=== PATIENT | female | born 1950 | race Caucasian/White ===

== ENCOUNTER → 2017-04-02 | Outpatient (CLI) | payer BC ==
[~2017-04-02] MED LIST: ADVIN10/60 INH; ALBU1AER9 INH; ALL180 PO; ALPR-411 PO; ASCA500 PO; CALC-354 PO; CHOL100010 PO; FIBETAB2 PO; FLUT0.0529; FLX5 PO; HYDR-3983 PO; HYDR0.75 PO; HYDR25TA4 PO; LIRA18IN SQ; LISI-725 PO; METF500T5 PO; MULT-845 PO; MYCO15 TOP; NTRS PO; NVLGI7030 SC; OMEG10002 PO; PROB1TAB16 PO; TRAZ50TA35 PO
[2017-04-02 13:28] LABS: HEMATOCRIT 39.5 % (37-47); MEAN CELL VOLUME 92.5 fL (80-100); MEAN CORPUSCULAR HEMOGLOBIN 30.4 pg (25-34); MEAN CORPUSCULAR HGB CONC 32.9 g/dl (32-36); MEAN PLATELET VOLUME 9.3 fL (7.4-10.4); PLATELET COUNT 291 K/uL (130-400); RED BLOOD COUNT 4.27 M/uL (4.2-5.4); WHITE BLOOD COUNT 6.72 K/uL (4.8-10.8)
[2017-04-02 14:02] LABS: ALT/SGPT 19 U/L (12-78); AST/SGOT 14 U/L (15-37); BLOOD UREA NITROGEN 13 mg/dl (7-18); BUN/CREATININE RATIO 17.6 (10-20); CALCIUM 9.5 mg/dl (8.5-10.1); CARBON DIOXIDE 30 mmol/L (21-32); CHLORIDE 104 mmol/L (98-107); CREATININE 0.73 mg/dl (0.60-1.20); GLUCOSE 116 mg/dl (70-99); POTASSIUM 3.9 mmol/L (3.5-5.1); SODIUM 137 mmol/L (136-145); URIC ACID 6.5 mg/dl (2.6-7.2)
[2017-04-02 14:04] LABS: ALB/GLOB RATIO 0.9 (0.9-2); ALKALINE PHOSPHATASE 97 U/L (45-117); CHOLESTEROL 184 mg/dl (0-200); CHOLESTEROL/HDL RATIO 2.9; HDL CHOLESTEROL 64 mg/dl; LDL CHOLESTEROL CALCULATED 104 mg/dl; TRIGLYCERIDES 82 mg/dl (0-150); VERY LOW DENSITY LIPOPROT CALC 16 mg/dl
[2017-04-02 14:30] LABS: ESTIMATED AVERAGE GLUCOSE 131 mg/dl; HA1C FLAG Normal (Normal)
== END | disposition home or self-care (01) ==
LOC: C.LABPVFM 08:34
PROVIDERS: ATTEND Internal Medicine
DX: Z00.00 Encounter for general adult medical examination without abnormal findings (principal); E11.9 Type 2 diabetes mellitus without complications; M10.9 Gout, unspecified

== ENCOUNTER 2024-11-30 10:14 | Inpatient (IN) ==
--- NOTE | 2024-11-30 10:38 | Emergency Department Note ---
Impression & Plan Atrial fibrillation, new onset Admission ED Provider Note HPI: History obtained from patient. The patient is a 73-year-old female who presents the emergency department with a chief complaint of new onset atrial fibrillation. Patient states she was scheduled for an EGD and a colonoscopy today, during her preprocedural screening she was noted to be in atrial fibrillation, this is a new issue for the patient therefore she was sent to the ER to be evaluated. Patient denies any chest pain or shortness of breath, on arrival here to the ED the patient is hypertensive and tachycardic in the 120s. Patient is saturating well on room air and otherwise appears to be in no acute distress on arrival. ROS: - Per HPI Differential Diagnosis: New onset atrial fibrillation, other arrhythmia to include SVT, ventricular tachycardia, ACS, PE, dehydration/acute kidney injury, critical electrolyte abnormalities, amongst other potential pathologies. *Outpatient medications and allergy history reviewed. PE: General: Alert HEENT: Normocephalic, trachea midline Eyes: Extraocular eye movement is intact, no scleral erythema Pulmonary: Clear to auscultation bilaterally, no wheezing Cardio: Tachycardic rate with irregular rhythm GI: Abdomen is soft to palpation : No suprapubic tenderness MSK: No evidence of trauma or malformation of the extremities, no edema Skin: No evidence of rash Neuro: Alert, no focal deficits Psychiatric: Cooperative INDEPENDENT INTERPRETATIONS: monitoring and evaluation advisor: (As interpreted by myself): - An order was placed for continuous cardiac monitoring - Patient was noted to be in atrial fibrillation with a rate of 130 EKG: (As interpreted by myself): Rate: 121 Rhythm: Atrial fibrillation with RVR Intervals: Within normal limits ST changes: No ST elevation Time: 1026 Chest x-ray: (As interpreted by myself): Mild CHF pattern Interventions provided in ED: - IV diltiazem, IV metoprolol Medical Decision Making: Patient appears to be in no acute distress on arrival, she was noted to be hypertensive and tachycardic with new onset atrial fibrillation with RVR on the monitor. Patient was given IV diltiazem. This did result in improvement in the patient's tachycardia. Lab work shows no leukocytosis, hemoglobin stable 11.5, platelet count is normal, CMP shows a hypokalemia 3.1, magnesium is low at 1.6, troponin is negative x 1. TSH is within normal limits. Patient was ordered IV magnesium as well as oral potassium chloride supplementation. Patient denies any chest pain or shortness of breath and troponin is negative, low suspicion for ACS or PE. Patient's heart rate did uptrend after the initial dose of IV diltiazem, she was therefore given a dose of IV metoprolol. This did result in improvement down to about 100 and the patient otherwise remained stable. I discussed the patient's symptoms and new onset A-fib with the on-call hospitalist, Dr. Glaser, and he did accept the admission. Patient was placed for admission in stable condition for further management. Consultants/Discussions held with other healthcare providers: - Hospitalist, Dr. Glaser Disposition discussion held by myself with: - Patient * CRITICAL CARE TIME: (38) minutes - Stabilization of tachyarrhythmia/atrial fibrillation with RVR requiring IV rate control medications for stabilization, interpretation of diagnostic studies including EKG, time spent at the bedside, discussion with other physicians and arrangement of admission Diagnosis: 1. New onset atrial fibrillation with RVR, acute 2. Hypokalemia, acute 3. Hypomagnesemia, acute Disposition: Admission Homer Murillo DO Emergency Medicine Past Med/Surg History Problem List (Updated 11/30/24 @ 14:24 by Homer Murillo DO) Atrial fibrillation, new onset (Acute) Hypoxia Hypomagnesemia Hypokalemia Atrial fibrillation with RVR Dysphagia Encounter for pre-operative examination Abnormal CT of the abdomen Back pain of thoracolumbar region Esophageal thickening T12 vertebral fracture (Acute ~07/18/24) Minimally displaced fractures of an anterior inferior T12 vertebral body osteophyte and anterior lateral right L1 superior vertebral body endplate. Compression fx, lumbar spine (Acute) Minimally displaced fractures of an anterior inferior T12 vertebral body osteophyte and anterior lateral right L1 superior vertebral body endplate. Nondisplaced fracture of fifth metatarsal bone (Acute ~11/20/22) Date of injury 11/20/22. Nondisplaced 4th and 5th left metatarsal fracture that are healing appropriately. 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 Lumbosacral radiculopathy Idiopathic polyneuropathy History of colon polyps Family history of colon cancer Encounter for pre-operative examination Type 2 diabetes mellitus (Acute) IDDM Obesity (Acute) Ganglion cyst (Acute) Extrinsic asthma (Acute) Essential hypertension (Acute) Dyslipidemia (Acute) Diabetic peripheral neuropathy (Acute) Depression with anxiety (Acute) Anxiety (Acute) Medical History Family hx of colon cancer Arthritis Hx of colonic polyp Snores no apnea testing T12 vertebral fracture (07/2024) Minimally displaced fractures of an anterior inferior T12 vertebral body osteophyte and anterior lateral right L1 superior vertebral body endplate. > pt is still mobile, just careful with lifting, minimal pain Type 2 diabetes mellitus Chronic sinusitis Endometriosis Depression Anxiety Migraine hx Hypertension Hyperlipidemia Asthma allergy induced > uses res inh few times per week Surgical History H/O excision of ganglion cyst S/P ACL repair H/O bladder repair surgery History of appendectomy History of colonoscopy History of excision of pilonidal cyst History of cataract surgery History of total abdominal hysterectomy Hx of detached retina repair Hx of cholecystectomy H/O lumpectomy Family History Grandfather Heart disease Myocardial infarction Daughter Bipolar disorder Asthma Mother Colon cancer Skin cancer (melanoma) Breast cancer Grandmother Diabetes Heart disease Hypertension Father COPD (chronic obstructive pulmonary disease) Son No problems noted. 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 [employer] How many Children do You have: 2 How many Children do You have Comment: Daughter, son Feels Safe at Home: Yes Childhood Exposure to Second-Hand Smoke: Yes Diet: regular caffeine: Yes during the past year weight has: increased > 10 lbs Dental Care, Regularly: Yes Physical Activity Frequency: 3-4 Times per Week Seatbelt Use: always Sunscreen Use: Yes Do you think of yourself as: straight/heterosexual Gender Identity: Female Assistive Devices: Denture - Upper and Glasses Allergies Allergies Allergy/AdvReac Type Severity Reaction Status Date / Time Sulfa (Sulfonamide Allergy Severe Rash Verified 11/30/24 09:11 Antibiotics) sulfite Allergy Severe varies - Verified 11/30/24 09:11 migraines,diarrhea,throat swelling amoxicillin Allergy Unknown RASH NAUSEA Verified 11/30/24 09:11 doxycycline AdvReac Intermediate Vomiting Verified 11/30/24 09:11 Home Meds Home Medications Medication Instructions Recorded Confirmed ascorbic acid (vitamin C) 1,000 mg 500 mg PO QAM 09/21/18 11/30/24 tablet (Vitamin C) cholecalciferol (vitamin D3) 25 2,000 unit PO QAM 09/21/18 11/30/24 mcg (1,000 unit) capsule (Vitamin D3) tknbfkrt-dzc-nnyhz acid 0.4 1 tab PO QAM 09/21/18 11/30/24 mg-lycopene 300 mcg-lutein 250 mcg tablet (Centrum Silver) omega 8-qgg-qlv-fish oil 1,000 mg 1 cap PO BID 06/11/19 11/30/24 (120 mg-180 mg) capsule (Fish Oil) calcium 333 mg 1 tab PO DAILY 11/25/19 11/30/24 (carbonate)-magnesium 133 mg (oxide)-zinc 5 mg tablet fexofenadine-pseudoephedrine ER 1 tab PO HS 11/25/19 11/30/24 180 mg-240 mg tablet,ext.release 24 hr (Lisa-D 24 Hour) zjlsxfad-uvwc-ppzqsmpj-folic acid 1 cap PO DAILY 11/25/19 11/30/24 66.7 mcg-biotin 1,666.7 mcg capsule (Hair, Skin and Nails-Argan Oil) ibuprofen 200 mg capsule 200 mg PO Q6H PRN Fever Or Pain 09/18/21 11/30/24 vitamins A,C,W-okqc-tnimos 4,296 1 cap PO HS 09/18/21 11/30/24 mcg-226 mg-90 mg capsule (PreserVision AREDS) calcium polycarbophil 625 mg 1,250 mg PO QAM 12/04/22 11/30/24 tablet (Fiber-Lax) cyanocobalamin (vitamin B-12) 1,000 mcg PO QAM 12/04/22 11/30/24 1,000 mcg tablet (Vitamin B-12) potassium chloride 10 mEq 10 meq PO QAM 07/23/24 11/30/24 capsule,extended release duloxetine 60 mg capsule,delayed 60 mg PO HS 11/23/24 11/30/24 release insulin glargine 100 unit/mL (3 20 unit subcut QAM 11/23/24 11/30/24 mL) subcutaneous pen (Lantus Solostar U-100 Insulin) meloxicam 7.5 mg tablet 7.5 mg PO HS 11/23/24 11/30/24 nystatin 100,000 unit/gram topical 1 applic topical BID PRN Rash 11/23/24 11/30/24 cream omeprazole 20 mg capsule,delayed 20 mg PO HS 11/23/24 11/30/24 release Previous Rx's Medication Instructions Recorded trazodone 50 mg tablet 50 mg PO HS PRN Sleep #30 tabs 06/11/19 blood sugar diagnostic (OneTouch #400 ea 09/27/19 Ultra Blue Test Strip) flash glucose scanning reader #1 ea 07/03/20 (FreeStyle Inga 14 Day [place]) flash glucose sensor (FreeStyle #1 ea 07/03/20 Inga 14 Day Sensor kit) diclofenac sodium 1 % topical gel 1 g topical ONCE PRN foot pain 02/19/22 #100 grams pen needle, diabetic 32 gauge x #200 ea 05/27/22 1/" (BD Ultra-Fine Micro Pen Needle) fluticasone 500 mcg-salmeterol 50 1 inh inhalation BID #60 ea 03/04/23 mcg/dose blistr powdr for inhalation (Advair Diskus) buspirone 5 mg tablet 5 mg PO BID PRN anxiety #60 tabs 01/19/24 lisinopril 20 mg tablet 20 mg PO BID #180 tabs 07/23/24 fluticasone propionate 50 1 spray intranasal HS #47.4 mL 08/04/24 mcg/actuation nasal spray,suspension (Allergy Relief (fluticasone)) hydrochlorothiazide 25 mg tablet 25 mg PO QAM #90 tabs 09/17/24 pregabalin 75 mg capsule 75 mg PO BID #180 caps 10/13/24 albuterol sulfate 90 mcg/actuation 2 inh inhalation Q6H PRN Shortness 10/20/24 breath activated powder Of Breath #1 ea inhaler,sensor Mounjaro 5 mg/0.5 mL subcutaneous 5 mg (0.5 mL) subcut WK #2 mL 11/03/24 pen injector (tirzepatide) metformin 500 mg tablet,extended 500 mg PO BIDM #180 tabs 11/08/24 release 24 hr peg 3350-electrolytes 236 240 ml PO Q10M #4,000 mL 11/17/24 gram-22.74 gram-6.74 gram-5.86 gram solution (Golytely) atorvastatin 10 mg tablet (Lipitor) 10 mg PO HS #90 tabs 11/19/24 Results & Data (ED) Vital Signs Vital Signs - 24 hr 11/30/24 10:14 11/30/24 10:18 11/30/24 10:26 Temperature 36.7 C Temperature Source Temporal Artery Scan Pulse Rate 111 H 128 H Pulse Rate [Left Finger] Pulse Rhythm Irregular Pulse Rhythm [Left Finger] Pulse Strength [Left Finger] Respiratory Rate 20 22 Respiratory Effort / Characteristics Non-Labored Spontaneous Respiratory Depth Normal Respiratory Pattern Blood Pressure 134/60 Blood Pressure [Right Arm] Blood Pressure Mean 84 Blood Pressure Mean [Right Arm] Blood Pressure Position [Right Arm] Pulse Oximetry 98 96 99 Oxygen Delivery Method Room Air Room Air Sepsis Recent Fever Within 48 Hours No Sepsis New/Unexplained Change in Mental Status No Sepsis Action Taken by Nursing No Action Required Oxygen Flow Rate - Titration Pulse Oximetry Post Tiitration 11/30/24 10:41 11/30/24 12:00 11/30/24 12:46 Temperature Temperature Source Pulse Rate 125 H Pulse Rate [Left Finger] 112 H Pulse Rhythm Pulse Rhythm [Left Finger] Regular Pulse Strength [Left Finger] Normal Respiratory Rate 20 Respiratory Effort / Characteristics Non-Labored Spontaneous Respiratory Depth Normal Respiratory Pattern Regular Blood Pressure Blood Pressure [Right Arm] 166/118 H Blood Pressure Mean Blood Pressure Mean [Right Arm] 134 Blood Pressure Position [Right Arm] Sitting Pulse Oximetry 96 85 L Oxygen Delivery Method Room Air Room Air Sepsis Recent Fever Within 48 Hours Sepsis New/Unexplained Change in Mental Status Sepsis Action Taken by Nursing Oxygen Flow Rate - Titration 3 Pulse Oximetry Post Tiitration 96 11/30/24 13:09 11/30/24 13:55 Temperature Temperature Source Pulse Rate 117 H Pulse Rate [Left Finger] 110 H Pulse Rhythm Pulse Rhythm [Left Finger] Pulse Strength [Left Finger] Respiratory Rate 20 Respiratory Effort / Characteristics Respiratory Depth Respiratory Pattern Blood Pressure 167/122 H Blood Pressure [Right Arm] 128/89 Blood Pressure Mean Blood Pressure Mean [Right Arm] 102 Blood Pressure Position [Right Arm] Pulse Oximetry 99 Oxygen Delivery Method Sepsis Recent Fever Within 48 Hours Sepsis New/Unexplained Change in Mental Status Sepsis Action Taken by Nursing Oxygen Flow Rate - Titration Pulse Oximetry Post Tiitration Laboratory Data 11/30/24 10:30 11/30/24 10:30 Lab Results 11/30/24 Range/Units 10:30 WBC 5.60 (4.8-10.8) K/ul RBC 3.96 L (4.20-5.40) M/uL Hgb 11.5 L (12.0-16.0) g/dl Hct 35.6 L (37.0-47.0) % MCV 89.9 (80.0-100.0) fL MCH 29.0 (25.0-34.0) pg MCHC 32.3 (32.0-36.0) g/dL RDW Std Deviation 46.1 (36.4-46.3) fL RDW Coeff of Mic 14.3 (11.5-14.5) % Plt Count 232 (130-400) K/uL MPV 9.5 (9.4-12.4) fL Immature Gran % (Auto) 0.2 % Neut % (Auto) 63.2 % Lymph % (Auto) 24.3 % [place] % (Auto) 7.3 % Eos % (Auto) 4.6 % Baso % (Auto) 0.4 % Neut # (Auto) 3.54 (1.40-6.50) K/uL Lymph # (Auto) 1.36 (1.20-3.40) K/uL [place] # (Auto) 0.41 (0.11-0.59) K/uL Eos # (Auto) 0.26 (0.00-0.50) K/uL Baso # (Auto) 0.02 (0.00-0.20) K/uL Immature Gran # (Auto) 0.01 (0.01-0.20) K/uL PT 13.3 H (9.0-12.0) Seconds INR 1.2 H (0.9-1.1) Sodium 139 (136-145) mmol/L Potassium 3.1 L (3.5-5.1) mmol/L Chloride 102 (98-107) mmol/L Carbon Dioxide 28 (21-32) mmol/L Anion Gap 9 (3-11) BUN 7 (6-23) mg/dl Creatinine 0.68 (0.6-1.2) mg/dl Est Cr Clr Drug Dosing Not Reportable eGFR 90.77 BUN/Creatinine Ratio 10.3 (10-20) Glucose 109 H (70-99(Fasting)) mg/dl Calcium 9.2 (8.6-10.3) mg/dl Magnesium 1.6 L (1.7-2.4) mg/dl Total Bilirubin 1.1 H (0.2-1.0) mg/dl AST 18 (13-39) U/L ALT 13 (7-52) U/L Alkaline Phosphatase 91 (34-104) U/L Troponin I High Sens 6.7 (0-14) pg/ml Total Protein 7.0 (6.0-8.3) gm/dl Albumin 3.7 (3.4-5.0) gm/dl Globulin 3.3 (2.5-4.0) gm/dl Albumin/Globulin Ratio 1.1 (0.9-2) Lipase 3 L (11-82) U/L TSH 3.619 (0.300-4.500) uIu/ml Administered Medications Magnesium Sulfate/Dextrose (Magnesium Sulfate / D5w) 1 gm in 100 mls @ 50 mls/hr IV ONE ONE Stop: 11/30/24 15:36 Last Admin: 11/30/24 14:07 Dose: 50 mls/hr Documented By: TORO Potassium Chloride (K Roger / Wtr) 10 meq in 100 mls @ 100 mls/hr IV ONE ONE Stop: 11/30/24 14:37 Last Admin: 11/30/24 14:06 Dose: 100 mls/hr Documented By: TORO Discontinued Medications Diltiazem HCl (Diltiazem Hcl 5 Mg/Ml 5 Ml Vial) 10 mg IV NOW STA Stop: 11/30/24 10:37 Last Admin: 11/30/24 10:47 Dose: 10 mg Documented By: TDM Co-signed By: Sodium Chloride (Nss) 1,000 mls @ 999 mls/hr IV .Q1H1M ONE Stop: 11/30/24 11:36 Last Infusion: 11/30/24 11:47 Dose: Infused Documented By: Admin: 11/30/24 10:47 Dose: 999 mls/hr Documented By: TDM Magnesium Sulfate/Dextrose (Magnesium Sulfate / D5w) 1 gm in 100 mls @ 50 mls/hr IV ONE ONE Stop: 11/30/24 13:12 Last Infusion: 11/30/24 13:15 Dose: Infused Documented By: Admin: 11/30/24 11:21 Dose: 50 mls/hr Documented By: TDM Metoprolol Tartrate (Metoprolol Tartrate 1 Mg/Ml Vial) 5 mg IV NOW STA Stop: 11/30/24 13:05 Last Admin: 11/30/24 13:09 Dose: 5 mg Documented By: DEEPALI Potassium Chloride (Potassium Chloride Crtab 20 Meq Tabcr) 40 meq PO NOW STA Stop: 11/30/24 11:14 Last Admin: 11/30/24 11:21 Dose: 40 meq Documented By: TDM Imaging Data Radiologist's Impression: Chest X-Ray 11/30/24 10:26 XR chest 1V portable CLINICAL HISTORY: Chest pain, nonspecific COMPARISON STUDY: 07/18/2024 FINDINGS: Stable mild cardiomegaly with mild coronary vascular congestion. No consolidation or pleural effusion. No pneumothorax. IMPRESSION: Mild CHF. ACT 112: Negative or not required by law. Electronically signed by: Juan Brown M.D. 11/30/2024 11:04 AM Discharge Plan Visit Data Chief Complaint: Cardiac Assessment Stated Complaint: NEW AFIB ED Provider: Homer Murillo Discharge Problem: Atrial fibrillation, new onset Patient Disposition: Admitted As Inpatient Condition: Fair Forms Stand Alone Forms: [facility] [email or web address] Prescriptions Prescriptions: No Action (DME) blood sugar diagnostic [OneTouch Ultra Blue Test Strip] Strip See Rx Instructions .ROUTE .MEDSUPPLY Qty: 400 3RF Rx Instructions: Use one strip to test blood sugar four times daily (DME) FreeStyle Inga 14 Day Sensor Kit See Rx Instructions .ROUTE .MEDSUPPLY Qty: 1 0RF Rx Instructions: As directed (DME) FreeStyle Inga 14 Day [place] Misc See Rx Instructions .ROUTE .MEDSUPPLY Qty: 1 0RF Rx Instructions: As directed diclofenac sodium 1 % gel 1 g topical ONCE PRN (Reason: foot pain) Qty: 100 5RF Rx Instructions: Apply sparingly to feet and toes as needed (DME) pen needle, diabetic [BD Ultra-Fine Micro Pen Needle] 32 gauge x 1/4" needle See Rx Instructions .ROUTE .MEDSUPPLY Qty: 200 5RF Rx Instructions: USE TO INJECT INSULIN AND VICTOZA 4 X DAILY buspirone 5 mg tablet 5 mg PO BID PRN (Reason: anxiety) Qty: 60 1RF lisinopril 20 mg tablet 20 mg PO BID Qty: 180 3RF fluticasone propionate [Allergy Relief (fluticasone)] 50 mcg/actuation spray,suspension 1 spray INTNAS HS Qty: 47.4 1RF Rx Instructions: administer into each nostril hydrochlorothiazide 25 mg tablet 25 mg PO QAM Qty: 90 1RF pregabalin 75 mg capsule 75 mg PO BID Qty: 180 1RF albuterol sulfate 90 mcg/actuation aero powdr breath act w/sensor 2 inh INHALATION Q6H PRN (Reason: Shortness Of Breath) Qty: 1 3RF Mounjaro 5 mg/0.5 mL pen injector 5 mg subcut WK Qty: 2 2RF Patient Comments: takes on Mondays last dose 11/22/24 Rx Instructions: Replaces Ozempic metformin 500 mg tablet extended release 24 hr 500 mg PO BIDM Qty: 180 3RF peg 3350-electrolytes [Golytely] 236-22.74-6.74 -5.86 gram recon soln 240 ml PO Q10M Qty: 4000 0RF Rx Instructions: Take per split dose instructions atorvastatin [Lipitor] 10 mg tablet 10 mg PO HS Qty: 90 1RF trazodone 50 mg tablet 50 mg PO HS PRN (Reason: Sleep) Qty: 30 5RF ibuprofen 200 mg capsule 200 mg PO Q6H PRN (Reason: Fever Or Pain) PreserVision AREDS 14,320-226-200 tsve-ez-cdry capsule 1 cap PO HS fluticasone propion-salmeterol [Advair Diskus] 500-50 mcg/dose blister with device 1 inh inhalation BID Qty: 60 0RF potassium chloride 10 mEq capsule, extended release 10 meq PO QAM ascorbic acid (vitamin C) [Vitamin C] 1,000 mg Tablet 500 mg PO QAM cholecalciferol (vitamin D3) [Vitamin D3] 1,000 unit Capsule 2,000 unit PO QAM Centrum Silver 0.4-300-250 mg-mcg-mcg Tablet 1 tab PO QAM omega 9-zab-pnw-fish oil [Fish Oil] 1,000 mg (120 mg-180 mg) capsule 1 cap PO BID calcium polycarbophil [Fiber-Lax] 625 mg tablet 1,250 mg PO QAM cyanocobalamin (vitamin B-12) [Vitamin B-12] 1,000 mcg tablet 1,000 mcg PO QAM fexofenadine-pseudoephedrine [Lisa-D 24 Hour] 180-240 mg Tablet Extended Release 24 Hr 1 tab PO HS calcium carb-mag ox-zinc gluc 333-133-5 mg Tablet 1 tab PO DAILY Hair, Skin and Nails-Argan Oil 66.7-1,666.7 mcg Capsule 1 cap PO DAILY meloxicam 7.5 mg tablet 7.5 mg PO HS nystatin 100,000 unit/gram cream 1 applic topical BID PRN (Reason: Rash) omeprazole 20 mg capsule,delayed release(DR/EC) 20 mg PO HS insulin glargine [Lantus Solostar U-100 Insulin] 100 unit/mL (3 mL) insulin pen 20 unit subcut QAM Patient Comments: took 1/2 dose- 10 units this am. BSG check is 143 at 0910. Rx Instructions: as directed duloxetine 60 mg capsule,delayed release(DR/EC) 60 mg PO HS Referrals Referrals: Pro,Pete Kelley MD [Primary Care Provider] -
[2024-11-30 10:47] LABS: Hematocrit (blood only) 35.6 % (37.0-47.0); Hemoglobin 11.5 g/dl (12.0-16.0); Immature Granulocytes # (auto) 0.01 K/uL (0.01-0.20); Immature Granulocytes % (auto) 0.2 %; Mean Corpuscular Hemoglobin 29.0 pg (25.0-34.0); Mean Corpuscular Volume 89.9 fL (80.0-100.0); Platelet Count 232 K/uL (130-400); RDW Standard Deviation 46.1 fL (36.4-46.3); Red Blood Count 3.96 M/uL (4.20-5.40); White Blood Count 5.60 K/ul (4.8-10.8)
[2024-11-30] MEDS: SODIUM CHLORIDE 0.9% 1,000 ML IV ONE (10:47)
--- NOTE | 2024-11-30 11:05 | XRay Report ---
XR chest 1V portable CLINICAL HISTORY: Chest pain, nonspecific COMPARISON STUDY: 07/18/2024 FINDINGS: Stable mild cardiomegaly with mild coronary vascular congestion. No consolidation or pleura l effusion. No pneumothorax. IMPRESSION: Mild CHF. ACT 112: Negative or not required by law. Electronically signed by: Juan Brown M.D. 11/30/2024 11:04 AM
[2024-11-30 11:08] LABS: Alanine Aminotransferase 13 U/L (7-52); Albumin Globulin Ratio 1.1 (0.9-2); Alkaline Phosphatase 91 U/L (34-104); Anion Gap 9 (3-11); Bilirubin,Total 1.1 mg/dl (0.2-1.0); Blood Urea Nitrogen 7 mg/dl (6-23); Calcium 9.2 mg/dl (8.6-10.3); Carbon Dioxide 28 mmol/L (21-32); Chloride 102 mmol/L (98-107); Globulin 3.3 gm/dl (2.5-4.0); Glucose 109 mg/dl (70-99(Fasting)); Lipase 3 U/L (11-82); Magnesium 1.6 mg/dl (1.7-2.4); Potassium 3.1 mmol/L (3.5-5.1); Sodium 139 mmol/L (136-145); Total Protein 7.0 gm/dl (6.0-8.3)
[2024-11-30 11:14] LABS: INR 1.2 (0.9-1.1); Prothrombin Time 13.3 Seconds (9.0-12.0)
[2024-11-30] MEDS: MAGNESIUM SULFATE / D5W 1 GM/100 ML BAG IV ONE ×2 (11:21→14:07)
[2024-11-30] MEDS: POTASSIUM CHLORIDE CRTAB 20 MEQ TABCR PO STA (11:21)
[2024-11-30 11:23] LABS: Thyroid Stimulating Hormone 3.619 uIu/ml (0.300-4.500)
[2024-11-30] MEDS: METOPROLOL TARTRATE 1 MG/ML VIAL IV STA ×2 (13:09→14:22)
--- NOTE | 2024-11-30 13:59 | History & Physical Report ---
Date of Service November 30, 2024 Assessment & Plan (1) Atrial fibrillation with RVR: (2) Hypokalemia: (3) Hypomagnesemia: (4) Hypoxia: Plan The patient is a 73-year-old female with a past medical history including dysphagia, esophageal thickening, T12 vertebral fracture, idiopathic polyneuropathy, diabetes mellitus type 2, obesity, extrinsic asthma, depression with anxiety, and dyslipidemia. She had presented to the endoscopy suite this morning for routine EGD and colonoscopy, however, she was found to be in atrial fibrillation with RVR, the procedure was not performed, she was sent to the ED for assessment. In the ED, EKG showed atrial fibrillation with RVR at a rate of 121. Potassium was 3.1, magnesium is 1.6. From the ED she received the following: Normal saline 1 L bolus, diltiazem 10 mg IV, magnesium sulfate 1 g IV, Lopressor 5 mg IV, and Klor-Con 40 mill equivalents p.o. New onset atrial fibrillation with RVR/hypertension- From the ED received the following: Normal saline 1 L bolus, diltiazem 10 mg IV, magnesium sulfate 1 g IV, Klor-Con 40 mill equivalents p.o., and then Lopressor 5 mg IV. Patient is on hydrochlorothiazide which will be held Patient did receive GoLytely prep for colonoscopy last evening, which likely resulted in further losses of potassium, magnesium and relatively dehydrated state Heart rate is improving from the mid 120s down to 102 Will be given additional magnesium sulfate 1 g IV now Give potassium chloride 10 mEq IV now Add a PTT to current labs to be able to start heparin drip Hold lisinopril due to borderline blood pressure now Continue potassium chloride 10 mill equivalents p.o. every morning Consult cardiology Electrolyte disturbances- Hypokalemia and hypomagnesemia, being replaced as above and recheck in the a.m. Hypoxia Requiring 2 L nasal cannula to get oxygen at 99% Continue Advair Diskus, and albuterol l HFA 2 puffs every 6 hours as needed May be secondary to A-fib with RVR Monitor fluid balance closely, looks like she will need more fluid, however, her chest x-ray is read as mild CHF Diabetes mellitus- Glucose 109 on admission Reduce glargine from 20 to 10 units SQ every morning Hold metformin and Mounjaro Placed on Accu-Cheks with NovoLog SSI Hyperlipidemia- Continue atorvastatin Depression with anxiety/peripheral neuropathy Continue duloxetine, trazodone, pregabalin and meloxicam GERD- Continue omeprazole/pantoprazole History of Present Illness Chief Complaint: The patient had presented to the GI endoscopy suite for EGD and colonoscopy this morning, after having taken her GoLytely prep last evening. She was found to be in new onset atrial fibrillation with RVR, and sent to the emergency department for evaluation. In the emergency department she received Cardizem 10 mg IV, magnesium sulfate 1 g IV, normal saline 1 L bolus, Klor-Con 40 mill equivalents p.o., and then received Lopressor 5 mg IV. Electrolyte abnormalities found were a low potassium of 3.1, and a low magnesium of 1.6. Troponin was normal at 6.7 Primary Care Provider: Pete Hall MD The patient is a 73-year-old female with a past medical history including d ysphagia, esophageal thickening, T12 vertebral fracture, idiopathic polyneuropathy, diabetes mellitus type 2, obesity, extrinsic asthma, depression with anxiety, and dyslipidemia. She had presented to the endoscopy suite this morning for routine EGD and colonoscopy, however, she was found to be in atrial fibrillation with RVR, the procedure was not performed, she was sent to the ED for assessment. In the ED, EKG showed atrial fibrillation with RVR at a rate of 121. Potassium was 3.1, magnesium is 1.6. From the ED she received the following: Normal saline 1 L bolus, diltiazem 10 mg IV, magnesium sulfate 1 g IV, Lopressor 5 mg IV, and Klor-Con 40 mill equivalents p.o. Allergies Allergy/AdvReac Type Severity Reaction Status Date / Time Sulfa (Sulfonamide Allergy Severe Rash Verified 11/30/24 09:11 Antibiotics) sulfite Allergy Severe varies - Verified 11/30/24 09:11 migraines,diarrhea,throat swelling amoxicillin Allergy Unknown RASH NAUSEA Verified 11/30/24 09:11 doxycycline AdvReac Intermediate Vomiting Verified 11/30/24 09:11 Home Medications Medication Instructions Recorded Confirmed Type ascorbic acid (vitamin C) 1,000 mg 500 mg PO QAM 09/21/18 11/30/24 History tablet (Vitamin C) cholecalciferol (vitamin D3) 25 2,000 unit PO QAM 06/10/19 08/19/25 History mcg (1,000 unit) capsule (Vitamin D3) mbgwxvkx-wmr-sflsc acid 0.4 1 tab PO QAM 09/21/18 11/30/24 History mg-lycopene 300 mcg-lutein 250 mcg tablet (Centrum Silver) omega 9-nlm-hhl-fish oil 1,000 mg 1 cap PO BID 06/11/19 11/30/24 History (120 mg-180 mg) capsule (Fish Oil) trazodone 50 mg tablet 50 mg PO HS PRN Sleep #30 tabs 06/11/19 11/30/24 Rx blood sugar diagnostic (OneTouch #400 ea 09/27/19 11/26/24 Rx Ultra Blue Test Strip) calcium 333 mg 1 tab PO DAILY 11/25/19 11/30/24 History (carbonate)-magnesium 133 mg (oxide)-zinc 5 mg tablet fexofenadine-pseudoephedrine ER 1 tab PO HS 11/25/19 11/30/24 History 180 mg-240 mg tablet,ext.release 24 hr (Lisa-D 24 Hour) dxbmfzga-cwlm-nuggbepy-folic acid 1 cap PO DAILY 11/25/19 11/30/24 History 66.7 mcg-biotin 1,666.7 mcg capsule (Hair, Skin and Nails-Argan Oil) flash glucose scanning reader #1 ea 07/03/20 11/26/24 Rx (FreeStyle Inga 14 Day Harvel) flash glucose sensor (FreeStyle #1 ea 07/03/20 11/26/24 Rx Inga 14 Day Sensor kit) ibuprofen 200 mg capsule 200 mg PO Q6H PRN Fever Or Pain 09/18/21 11/30/24 History vitamins A,C,T-hdho-ptwdrz 4,296 1 cap PO HS 09/18/21 11/30/24 History mcg-226 mg-90 mg capsule (PreserVision AREDS) diclofenac sodium 1 % topical gel 1 g topical ONCE PRN foot pain 02/19/22 11/30/24 Rx #100 grams pen needle, diabetic 32 gauge x #200 ea 05/27/22 11/26/24 Rx 1/4" (BD Ultra-Fine Micro Pen Needle) calcium polycarbophil 625 mg 1,250 mg PO QAM 12/04/22 11/30/24 History tablet (Fiber-Lax) cyanocobalamin (vitamin B-12) 1,000 mcg PO QAM 12/04/22 11/30/24 History 1,000 mcg tablet (Vitamin B-12) fluticasone 500 mcg-salmeterol 50 1 inh inhalation BID #60 ea 03/04/23 11/30/24 Rx mcg/dose blistr powdr for inhalation (Advair Diskus) buspirone 5 mg tablet 5 mg PO BID PRN anxiety #60 tabs 01/19/24 11/30/24 Rx lisinopril 20 mg tablet 20 mg PO BID #180 tabs 07/23/24 11/30/24 Rx potassium chloride 10 mEq 10 meq PO QAM 07/23/24 11/30/24 History capsule,extended release fluticasone propionate 50 1 spray intranasal HS #47.4 mL 08/04/24 11/30/24 Rx mcg/actuation nasal spray,suspension (Allergy Relief (fluticasone)) hydrochlorothiazide 25 mg tablet 25 mg PO QAM #90 tabs 09/17/24 11/30/24 Rx pregabalin 75 mg capsule 75 mg PO BID #180 caps 10/13/24 11/30/24 Rx albuterol sulfate 90 mcg/actuation 2 inh inhalation Q6H PRN Shortness 10/20/24 11/30/24 Rx breath activated powder Of Breath #1 ea inhaler,sensor Mounjaro 5 mg/0.5 mL subcutaneous 5 mg (0.5 mL) subcut WK #2 mL 11/03/24 11/30/24 Rx pen injector (tirzepatide) metformin 500 mg tablet,extended 500 mg PO BIDM #180 tabs 11/08/24 11/30/24 Rx release 24 hr peg 3350-electrolytes 236 240 ml PO Q10M #4,000 mL 11/17/24 11/30/24 Rx gram-22.74 gram-6.74 gram-5.86 gram solution (Golytely) atorvastatin 10 mg tablet (Lipitor) 10 mg PO HS #90 tabs 11/19/24 11/30/24 Rx duloxetine 60 mg capsule,delayed 60 mg PO HS 11/23/24 11/30/24 History release insulin glargine 100 unit/mL (3 20 unit subcut QAM 11/23/24 11/30/24 History mL) subcutaneous pen (Lantus Solostar U-100 Insulin) meloxicam 7.5 mg tablet 7.5 mg PO HS 11/23/24 11/30/24 History nystatin 100,000 unit/gram topical 1 applic topical BID PRN Rash 11/23/24 11/30/24 History cream omeprazole 20 mg capsule,delayed 20 mg PO HS 11/23/24 11/30/24 History release Past Med/Surg History Problem List (Updated 11/30/24 @ 14:24 by Homer Murillo, ) Atrial fibrillation, new onset (Acute) Hypoxia Hypomagnesemia Hypokalemia Atrial fibrillation with RVR Dysphagia Encounter for pre-operative examination Abnormal CT of the abdomen Back pain of thoracolumbar region Esophageal thickening T12 vertebral fracture (Acute ~07/18/24) Minimally displaced fractures of an anterior inferior T12 vertebral body osteophyte and anterior lateral right L1 superior vertebral body endplate. Compression fx, lumbar spine (Acute) Minimally displaced fractures of an anterior inferior T12 vertebral body osteophyte and anterior lateral right L1 superior vertebral body endplate. Nondisplaced fracture of fifth metatarsal bone (Acute ~11/20/22) Date of injury 11/20/22. Nondisplaced 4th and 5th left metatarsal fracture that are healing appropriately. 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 Lumbosacral radiculopathy Idiopathic polyneuropathy History of colon polyps Family history of colon cancer Encounter for pre-operative examination Type 2 diabetes mellitus (Acute) IDDM Obesity (Acute) Ganglion cyst (Acute) Extrinsic asthma (Acute) Essential hypertension (Acute) Dyslipidemia (Acute) Diabetic peripheral neuropathy (Acute) Depression with anxiety (Acute) Anxiety (Acute) Medical History Family hx of colon cancer Arthritis Hx of colonic polyp Snores no apnea testing T12 vertebral fracture (07/2024) Minimally displaced fractures of an anterior inferior T12 vertebral body osteophyte and anterior lateral right L1 superior vertebral body endplate. > pt is still mobile, just careful with lifting, minimal pain Type 2 diabetes mellitus Chronic sinusitis Endometriosis Depression Anxiety Migraine hx Hypertension Hyperlipidemia Asthma allergy induced > uses res inh few times per week Surgical History H/O excision of ganglion cyst S/P ACL repair H/O bladder repair surgery History of appendectomy History of colonoscopy History of excision of pilonidal cyst History of cataract surgery History of total abdominal hysterectomy Hx of detached retina repair Hx of cholecystectomy H/O lumpectomy Family History Grandfather Heart disease Myocardial infarction Daughter Bipolar disorder Asthma Mother Colon cancer Skin cancer (melanoma) Breast cancer Grandmother Diabetes Heart disease Hypertension Father COPD (chronic obstructive pulmonary disease) Son No problems noted. 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 [employer] How many Children do You have: 2 How many Children do You have Comment: Daughter, son Feels Safe at Home: Yes Childhood Exposure to Second-Hand Smoke: Yes Diet: regular caffeine: Yes during the past year weight has: increased > 10 lbs Dental Care, Regularly: Yes Physical Activity Frequency: 3-4 Times per Week Seatbelt Use: always Sunscreen Use: Yes Do you think of yourself as: straight/heterosexual Gender Identity: Female Assistive Devices: Denture - Upper and Glasses Review of Systems Review of Systems: The patient denies chest pain, palpitations, shortness of breath, dyspnea on exertion, cough, lower extremity swelling, sore throat, fevers, chills, sweats, nausea, vomiting, abdominal pain, pelvic pain, blood in urine or stool, dysuria, urinary frequency or urgency, lightheadedness, dizziness, headache, memory loss, loss of consciousness, rash, abnormal bruising or bleeding, imbalance, focal or generalized weakness, numbness or tingling in arms, generalized arthralgias or myalgias, back or neck pain, or night sweats. The review of systems is otherwise negative other than for that already noted above, and at least 10 systems have been reviewed. Physical Exam Physical Exam: The patient is awake, alert and oriented 3, well developed and well nourished, normocephalic and atraumatic, lying in bed and in no acute distress. HEENT--PERRL, EOMI, mucous membranes and oropharynx dry. Neck--supple. No JVD. No bruits. Thyroid normal, trachea midline, no adenopathy. Heart--irregularly irregular and mildly tachycardic. No murmurs, rubs or gallops. Lungs--clear bilaterally, no respiratory distress, no accessory muscle use. Abdomen--normal bowel sounds and soft. Nontender. Nondistended, no hernias or masses, no organomegaly. Extremities--no cyanosis or clubbing. No edema. Dermatologic--normal skin turgor, normal color, no abnormal lymph nodes, no rash. Neurologic--cranial nerves II through XII grossly intact. Rheumatologic--normal range of motion. Psychiatric--normal affect. Results & Data Results & Data Vital Signs (Past 12 Hours) Vital Signs Temp Pulse Pulse Resp BP BP Pulse Ox 11/30/24 13:09 117 H 167/122 H 11/30/24 12:46 85 L 11/30/24 12:00 112 H 20 166/118 H 96 11/30/24 10:41 125 H 11/30/24 10:26 128 H 22 99 11/30/24 10:18 36.7 C 111 H 20 134/60 96 11/30/24 10:14 98 O2 Del Method 11/30/24 13:09 11/30/24 12:46 Room Air 11/30/24 12:00 Room Air 11/30/24 10:41 11/30/24 10:26 Room Air 11/30/24 10:18 11/30/24 10:14 Room Air Laboratory Results Laboratory Results WBC 5.60 K/ul (4.8-10.8) 11/30/24 10:30 RBC 3.96 M/uL (4.20-5.40) L 11/30/24 10:30 Hgb 11.5 g/dl (12.0-16.0) L 11/30/24 10:30 Hct 35.6 % (37.0-47.0) L 11/30/24 10:30 MCV 89.9 fL (80.0-100.0) 11/30/24 10:30 MCH 29.0 pg (25.0-34.0) 11/30/24 10:30 MCHC 32.3 g/dL (32.0-36.0) 11/30/24 10:30 RDW Std Deviation 46.1 fL (36.4-46.3) 11/30/24 10:30 RDW Coeff of Mic 14.3 % (11.5-14.5) 11/30/24 10:30 Plt Count 232 K/uL (130-400) 11/30/24 10:30 MPV 9.5 fL (9.4-12.4) 11/30/24 10:30 Immature Gran % (Auto) 0.2 % 11/30/24 10:30 Neut % (Auto) 63.2 % 11/30/24 10:30 Lymph % (Auto) 24.3 % 11/30/24 10:30 Labette % (Auto) 7.3 % 11/30/24 10:30 Eos % (Auto) 4.6 % 11/30/24 10:30 Baso % (Auto) 0.4 % 11/30/24 10:30 Neut # (Auto) 3.54 K/uL (1.40-6.50) 11/30/24 10:30 Lymph # (Auto) 1.36 K/uL (1.20-3.40) 11/30/24 10:30 Labette # (Auto) 0.41 K/uL (0.11-0.59) 11/30/24 10:30 Eos # (Auto) 0.26 K/uL (0.00-0.50) 11/30/24 10:30 Baso # (Auto) 0.02 K/uL (0.00-0.20) 11/30/24 10:30 Immature Gran # (Auto) 0.01 K/uL (0.01-0.20) 11/30/24 10:30 PT 13.3 Seconds (9.0-12.0) H 11/30/24 10:30 INR 1.2 (0.9-1.1) H 11/30/24 10:30 Sodium 139 mmol/L (136-145) 11/30/24 10:30 Potassium 3.1 mmol/L (3.5-5.1) L 11/30/24 10:30 Chloride 102 mmol/L (98-107) 11/30/24 10:30 Carbon Dioxide 28 mmol/L (21-32) 11/30/24 10:30 Anion Gap 9 (3-11) 11/30/24 10:30 BUN 7 mg/dl (6-23) 11/30/24 10:30 Creatinine 0.68 mg/dl (0.6-1.2) 11/30/24 10:30 Est Cr Clr Drug Dosing Not Reportable 11/30/24 10:30 eGFR 90.77 11/30/24 10:30 BUN/Creatinine Ratio 10.3 (10-20) 11/30/24 10:30 Glucose 109 mg/dl (70-99(Fasting)) H 11/30/24 10:30 Calcium 9.2 mg/dl (8.6-10.3) 11/30/24 10:30 Magnesium 1.6 mg/dl (1.7-2.4) L 11/30/24 10:30 Total Bilirubin 1.1 mg/dl (0.2-1.0) H 11/30/24 10:30 AST 18 U/L (13-39) 11/30/24 10:30 ALT 13 U/L (7-52) 11/30/24 10:30 Alkaline Phosphatase 91 U/L (34-104) 11/30/24 10:30 Troponin I High Sens 6.7 pg/ml (0-14) 11/30/24 10:30 Total Protein 7.0 gm/dl (6.0-8.3) 11/30/24 10:30 Albumin 3.7 gm/dl (3.4-5.0) 11/30/24 10:30 Globulin 3.3 gm/dl (2.5-4.0) 11/30/24 10:30 Albumin/Globulin Ratio 1.1 (0.9-2) 11/30/24 10:30 Lipase 3 U/L (11-82) L 11/30/24 10:30 TSH 3.619 uIu/ml (0.300-4.500) 11/30/24 10:30 Impressions Chest X-Ray 11/30/24 10:26 XR chest 1V portable CLINICAL HISTORY: Chest pain, nonspecific COMPARISON STUDY: 07/18/2024 FINDINGS: Stable mild cardiomegaly with mild coronary vascular congestion. No consolidation or pleural effusion. No pneumothorax. IMPRESSION: Mild CHF. ACT 112: Negative or not required by law. Electronically signed by: Juan Brown M.D. 11/30/2024 11:04 AM Code Status & VTE Plan Code Status Full code VTE Prophylaxis Plan VTE Prophylaxis will be ordered: Yes PG Care Time/CCT Total # of Minutes Spent Total Time Spent with Patient: Total time spent is greater than 50% in coordination of care (as documented) at patient's floor/unit and/or counseling patient: Coding Level of Care Code 35783 INT INP/OBS CARE 3/75MIN Diagnoses Atrial fibrillation with RVR I48.91 Hypokalemia E87.6 Hypomagnesemia E83.42 Hypoxia R09.02
[2024-11-30] MEDS: POTASSIUM CHLORIDE / WTR 10 MEQ/100 ML PLCT IV ONE (14:06)
[2024-11-30 15:07] LABS: Partial Thromboplastin Time 29 Seconds (21-31)
[2024-11-30] MEDS ORDERED: CARBOHYDRATES FOR HYPOGLYCEMIA PO PRN (15:39)
[2024-11-30] MEDS ORDERED: GLUCOSE 10 TAB/TUBE PO PRN (15:39)
[2024-11-30] MEDS ORDERED: DEXTROSE 50% 50 ML SYRINGE IV PRN (15:39)
[2024-11-30] MEDS ORDERED: GLUCOSE 40% GEL 15 GM TUBE PO PRN (15:39)
[2024-11-30] MEDS ORDERED: GLUCAGON FOR INJ 1 MG VIAL SQ PRN (15:39)
[2024-11-30] MEDS ORDERED: ACETAMINOPHEN 325 MG TAB PO PRN (15:39)
[2024-11-30] MEDS ORDERED: ONDANSETRON INJ 2 MG/ML 2 ML VIAL IV PRN (15:39)
--- NOTE | 2024-11-30 15:46 | XCELERA ---
[id number] \\[id number]
[2024-11-30] MEDS ORDERED: ALBUTEROL HFA 8 GM INHALER INH PRN (16:03)
[2024-11-30] MEDS: INSULIN ASPART PER UNIT CHARGE SC SCH (17:53)
[2024-11-30] MEDS: HEPARIN 25000 UNIT/500 ML D5W 25,000 UNITS/500 ML BAG IV SCH (18:44)
[2024-11-30] MEDS: Heparin IV Adult Wt-Based Standard *NO* INITIAL Bolus Protocol IV STA (18:51)
--- NOTE | 2024-11-30 18:56 | Cardiology Consultation ---
Date of Consultation November 30, 2024 Assessment & Plan (1) Atrial fibrillation, new onset: (2) Anticoagulant long-term use: (3) Cardiomyopathy: (4) WEEMS (dyspnea on exertion): Plan 1. Atrial fibrillation: She has new or recent onset atrial fibrillation, her symptoms are not significant enough to determine a time of onset. I suspect it has been several months due to her exertional symptoms but I cannot be sure. Evaluation of her vital signs indicates that her heart rate was in the 50s to 60s through July 23, 2024 and at that time electrocardiogram showed sinus rhythm. September 23, 2024 her heart rate was 78 and November 26 it was 89, both higher than prior measurements. It is much faster however here in the emergency room at 127 on presentation. During atrial fibrillation pulse rates can sometimes be continuously low so she may have been in atrial fibrillation in [facility]. She has remained in atrial fibrillation with a rapid heart rate here. We need to try to get her heart rate under better control and I am going to add diltiazem 60 mg short acting tonight and switch to long-acting tomorrow. At some point we should consider cardioversion but I would not do that unless we either cannot get her heart rate controlled (in which case we will need a YKLER guided cardioversion) or 3 to 4 months of anticoagulation has been completed to minimize stroke risk. 2. Anticoagulation: Currently she is on heparin, I would recommend switching to Eliquis at some point although if we are going to do any invasive testing (such as catheterization) perhaps maintaining heparin for the time being is safer. 3. Cardiomyopathy: She does have a cardiomyopathy, it could be rate related as she does have a quite elevated and sustained heart rate. She does however have a possible anterior myocardial infarction on her electrocardiogram and she has anteroseptal wall motion abnormalities so ischemia may also be present. We will probably need to look for ischemia, either by stress testing or catheterization, but I would wait until we have her heart rate better controlled. 4. Dyspnea on exertion: She seems to have significant dyspnea on exertion which has worsened recently, that could be from her cardiomyopathy, however she does have lung findings as well. She appears to have had an exacerbation of her asthma which could have been worsened with mild heart failure. It is possibly an anginal equivalent. History of Present Illness Reason for Consultation: Atrial fibrillation with rapid ventricular response Attending Physician: Huber Glaser MD History of Present Illness This is a 73-year-old woman who has a number of medical problems including diabetes mellitus, obesity, asthma and dyslipidemia but no known cardiovascular history. She presented to the emergency room on November 30, 2024 with symptoms of dyspnea on exertion and occasional palpitations. She had a fall and July 2024 with a back injury and has not been able to be very active since, she has had what she feels is a decline in exercise abilities since but more recently has a lot of difficulty with exertion. She gets very short of breath with minimal exertion (such as walking across a parking lot) which was not present in the past. She denies exertional chest discomfort. She does have occasional palpitations although her description is not very clear. In the emergency room she was identified as having atrial fibrillation with a heart rate of 121 bpm but was minimally symptomatic with the arrhythmia. She also has poor R wave progression suggestive of an anterior myocardial infarction. Her current electrocardiogram however is similar to July 2024. An echocardiogram done November 30, 2024 shows normal left ventricular size with global left ventricular hypokinesis but there is an abnormal septal wall motion abnormality and her ejection fraction is 35 to 40%. Minor valvular abnormalities. A high-sensitivity troponin measurement in the emergency room is normal at 6.7, it was also normal on July 18, 2024. Allergies Allergy/AdvReac Type Severity Reaction Status Date / Time Sulfa (Sulfonamide Allergy Severe Rash Verified 11/30/24 09:11 Antibiotics) sulfite Allergy Severe varies - Verified 11/30/24 09:11 migraines,diarrhea,throat swelling amoxicillin Allergy Unknown RASH NAUSEA Verified 11/30/24 09:11 doxycycline AdvReac Intermediate Vomiting Verified 11/30/24 09:11 Home Medications Medication Instructions Recorded Confirmed Type ascorbic acid (vitamin C) 1,000 mg 500 mg PO QAM 09/21/18 11/30/24 History tablet (Vitamin C) cholecalciferol (vitamin D3) 25 2,000 unit PO QAM 09/21/18 11/30/24 History mcg (1,000 unit) capsule (Vitamin D3) uxptmavl-shm-eivkd acid 0.4 1 tab PO QAM 09/21/18 11/30/24 History mg-lycopene 300 mcg-lutein 250 mcg tablet (Centrum Silver) omega 2-irk-aaa-fish oil 1,000 mg 1 cap PO BID 06/11/19 11/30/24 History (120 mg-180 mg) capsule (Fish Oil) trazodone 50 mg tablet 50 mg PO HS PRN Sleep #30 tabs 06/11/19 11/30/24 Rx blood sugar diagnostic (OneTouch #400 ea 09/27/19 11/26/24 Rx Ultra Blue Test Strip) calcium 333 mg 1 tab PO DAILY 11/25/19 11/30/24 History (carbonate)-magnesium 133 mg (oxide)-zinc 5 mg tablet fexofenadine-pseudoephedrine ER 1 tab PO HS 11/25/19 11/30/24 History 180 mg-240 mg tablet,ext.release 24 hr (Lisa-D 24 Hour) deaandsw-jovm-gvweaqxk-folic acid 1 cap PO DAILY 11/25/19 11/30/24 History 66.7 mcg-biotin 1,666.7 mcg capsule (Hair, Skin and Nails-Argan Oil) flash glucose scanning reader #1 ea 07/03/20 11/26/24 Rx (FreeStyle Inga 14 Day [place]) flash glucose sensor (FreeStyle #1 ea 07/03/20 11/26/24 Rx Inga 14 Day Sensor kit) ibuprofen 200 mg capsule 200 mg PO Q6H PRN Fever Or Pain 09/18/21 11/30/24 History vitamins A,C,S-zznl-fuozpg 4,296 1 cap PO HS 09/18/21 11/30/24 History mcg-226 mg-90 mg capsule (PreserVision AREDS) diclofenac sodium 1 % topical gel 1 g topical ONCE PRN foot pain 02/19/22 11/30/24 Rx #100 grams pen needle, diabetic 32 gauge x #200 ea 05/27/22 11/26/24 Rx 1/4" (BD Ultra-Fine Micro Pen Needle) calcium polycarbophil 625 mg 1,250 mg PO QAM 12/04/22 11/30/24 History tablet (Fiber-Lax) cyanocobalamin (vitamin B-12) 1,000 mcg PO QAM 12/04/22 11/30/24 History 1,000 mcg tablet (Vitamin B-12) fluticasone 500 mcg-salmeterol 50 1 inh inhalation BID #60 ea 03/04/23 11/30/24 Rx mcg/dose blistr powdr for inhalation (Advair Diskus) buspirone 5 mg tablet 5 mg PO BID PRN anxiety #60 tabs 01/19/24 11/30/24 Rx lisinopril 20 mg tablet 20 mg PO BID #180 tabs 07/23/24 11/30/24 Rx potassium chloride 10 mEq 10 meq PO QAM 07/23/24 11/30/24 History capsule,extended release fluticasone propionate 50 1 spray intranasal HS #47.4 mL 08/04/24 11/30/24 Rx mcg/actuation nasal spray,suspension (Allergy Relief (fluticasone)) hydrochlorothiazide 25 mg tablet 25 mg PO QAM #90 tabs 09/17/24 11/30/24 Rx pregabalin 75 mg capsule 75 mg PO BID #180 caps 10/13/24 11/30/24 Rx albuterol sulfate 90 mcg/actuation 2 inh inhalation Q6H PRN Shortness 10/20/24 11/30/24 Rx breath activated powder Of Breath #1 ea inhaler,sensor Mounjaro 5 mg/0.5 mL subcutaneous 5 mg (0.5 mL) subcut WK #2 mL 11/03/24 11/30/24 Rx pen injector (tirzepatide) metformin 500 mg tablet,extended 500 mg PO BIDM #180 tabs 11/08/24 11/30/24 Rx release 24 hr peg 3350-electrolytes 236 240 ml PO Q10M #4,000 mL 11/17/24 11/30/24 Rx gram-22.74 gram-6.74 gram-5.86 gram solution (Golytely) atorvastatin 10 mg tablet (Lipitor) 10 mg PO HS #90 tabs 11/19/24 11/30/24 Rx duloxetine 60 mg capsule,delayed 60 mg PO HS 11/23/24 11/30/24 History release insulin glargine 100 unit/mL (3 20 unit subcut QAM 11/23/24 11/30/24 History mL) subcutaneous pen (Lantus Solostar U-100 Insulin) meloxicam 7.5 mg tablet 7.5 mg PO HS 11/23/24 11/30/24 History nystatin 100,000 unit/gram topical 1 applic topical BID PRN Rash 11/23/24 11/30/24 History cream omeprazole 20 mg capsule,delayed 20 mg PO HS 11/23/24 11/30/24 History release Patient History Medical History Family hx of colon cancer Arthritis Hx of colonic polyp Snores no apnea testing T12 vertebral fracture (07/2024) Minimally displaced fractures of an anterior inferior T12 vertebral body osteophyte and anterior lateral right L1 superior vertebral body endplate. > pt is still mobile, just careful with lifting, minimal pain Type 2 diabetes mellitus Chronic sinusitis Endometriosis Depression Anxiety Migraine hx Hypertension Hyperlipidemia Asthma allergy induced > uses res inh few times per week Surgical History H/O excision of ganglion cyst right hand S/P ACL repair ACL/MCL/meniscus surgery RIGHT H/O bladder repair surgery bladder tack with mesh History of appendectomy possibly removed with hysterectomy History of colonoscopy History of excision of pilonidal cyst History of cataract surgery bilateral History of total abdominal hysterectomy MELY with BSO Hx of detached retina repair left Hx of cholecystectomy H/O lumpectomy bilateral (fibroid cysts) Family History Grandfather Heart disease Myocardial infarction Daughter Bipolar disorder Asthma Mother Colon cancer Skin cancer (melanoma) Breast cancer Grandmother Diabetes Heart disease Hypertension Father COPD (chronic obstructive pulmonary disease) Son No problems noted. 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 [employer] How many Children do You have: 2 How many Children do You have Comment: Daughter, son Feels Safe at Home: Yes Safety Concerns: Feels Safe At This Time Childhood Exposure to Second-Hand Smoke: Yes Diet: regular caffeine: Yes during the past year weight has: increased > 10 lbs Dental Care, Regularly: Yes Physical Activity Frequency: 3-4 Times per Week Seatbelt Use: always Sunscreen Use: Yes Do you think of yourself as: straight/heterosexual Gender Identity: Female Assistive Devices: Denture - Upper and Glasses Review of Systems Review of Systems: All systems reviewed & are unremarkable except as noted in HPI & below Physical Exam Physical Exam: Constitutional: Alert, cooperative and in no distress. She is resting in bed. HEENT: Unremarkable Neck: No jugular venous distention, carotid pulses are irregular but otherwise normal and equal bilaterally without bruits. Pulmonary: Expiratory wheeze on auscultation bilaterally. Cardiac: Irregular rapid rhythm with no murmur, gallop or rub. Abdomen: Soft, nontender with normal bowel sounds. Extremities: No edema. Neurologic: No focal findings. Skin: No rash, ecchymoses or petechiae. Results & Data Vital Signs (Past 12 Hours) Vital Signs Temp Pulse Pulse Resp BP BP Pulse Ox 11/30/24 16:51 124 H 11/30/24 16:34 122 H 134/75 11/30/24 15:40 36.3 C L 122 H 19 134/75 94 11/30/24 15:39 11/30/24 15:00 97 H 20 135/84 99 11/30/24 14:29 96 H 11/30/24 13:55 110 H 20 128/89 99 11/30/24 13:09 117 H 167/122 H 11/30/24 12:46 85 L 11/30/24 12:00 112 H 20 166/118 H 96 11/30/24 10:41 125 H 11/30/24 10:26 128 H 22 99 11/30/24 10:18 36.7 C 111 H 20 134/60 96 11/30/24 10:14 98 Pulse Ox O2 Del Method O2 Del Method 11/30/24 16:51 11/30/24 16:34 11/30/24 15:40 Room Air 11/30/24 15:39 94 Room Air 11/30/24 15:00 Room Air 11/30/24 14:29 11/30/24 13:55 11/30/24 13:09 11/30/24 12:46 Room Air 11/30/24 12:00 Room Air 11/30/24 10:41 11/30/24 10:26 Room Air 11/30/24 10:18 11/30/24 10:14 Room Air Laboratory Results Coagulation 11/30/24 Range/Units 10:30 APTT 29 (21-31) Seconds Intake and Output 11/30/24 12/01/24 12/01/24 22:59 06:59 14:59 Intake Total 400 / 1737.033 237.033 / 1737.033 Balance 400 / 1737.033 237.033 / 1737.033 Intake: IV 200 / 1537.033 237.033 / 1537.033 Heparin 82248 Unit/500 ml D5w 237.033 / 237.033 25,000 units In 500 ml @ 1,300 UNITS/HR 26 mls/hr IV .[id number] [facility] Rx#:[id number] Magnesium Sulfate / D5w 1 gm In 100 / 100 100 ml @ 50 mls/hr IV ONE ONE Rx#:[id number] Potassium Chloride / Wtr 10 meq 100 / 100 In 100 ml @ 100 mls/hr IV ONE ONE Rx#:[id number] Oral 200 / 200 Other: # Unmeasured Voids 1 1 Weight 95.708 kg 96.2 kg Weight Measurement Method Standing Scale Diagnostic Findings Telemetry: Atrial fibrillation with a heart rate consistently over 100 and minimally changed from presentation. PG Care Time/CCT Total # of Minutes Spent Total Time Spent with Patient: Total time spent is greater than 50% in coordination of care (as documented) at patient's floor/unit and/or counseling patient: Coding Level of Care Code 66831 INT INP/OBS CARE 3/75MIN Diagnoses Atrial fibrillation, new onset I48.91 Anticoagulant long-term use Z79.01 Cardiomyopathy I42.9 WEEMS (dyspnea on exertion) R06.09
[2024-11-30] MEDS: FLUTICASONE PROPIONATE NA SPR 16 GM BTL NAE SCH (20:01)
[2024-11-30] MEDS: OMEGA-3 (PURIFIED FISH OIL) 1 GM CAP PO SCH (20:01)
[2024-11-30] MEDS: ATORVASTATIN 10 MG TAB PO SCH (20:01)
[2024-11-30] MEDS: MELOXICAM 7.5 MG TAB PO SCH (20:01)
[2024-11-30] MEDS: FEXOFENADINE HCL 180 MG TAB PO SCH (20:01)
[2024-11-30] MEDS: PREGABALIN 75 MG CAP PO SCH (20:02)
[2024-11-30] MEDS ORDERED: NON-FORMULARY MEDICATION (Vitamins A,C,E-Zinc-Copper [Preservision Areds] 14,320-226-200 u PO SCH (21:00)
[2024-12-01 01:54] LABS: ANTI-Xa, UFH(UnfractionatedHep 0.43 IU/ml (0.3-0.7)
[2024-12-01] MEDS: LANTUS PER UNIT CHARGE SQ SCH (08:38)
[2024-12-01] MEDS: CHOLECALCIFEROL 25 MCG (1000 UNITS) TAB PO SCH (08:39)
[2024-12-01] MEDS: POTASSIUM CHLORIDE 10 MEQ TABCR PO SCH (08:39)
[2024-12-01] MEDS: FLUTICASONE/VILANTEROL 200/25MCG 14 PUFFS/INHALER INH SCH (08:39)
[2024-12-01] MEDS: CYANOCOBALAMIN (B-12) 500 MCG TABLET PO SCH (08:40)
[2024-12-01] MEDS: CALCIUM POLYCARBOPHIL 625MG TAB PO SCH (08:40)
[2024-12-01] MEDS: ASCORBIC ACID 500 MG TAB PO SCH (08:40)
[2024-12-01] MEDS: CEROVITE ADV FORMULA TAB PO SCH (08:40)
[2024-12-01] MEDS ORDERED: [UNRECOGNIZED DRUG - OTHER] PO SCH (09:00)
[2024-12-01] MEDS ORDERED: [UNRECOGNIZED DRUG - OTHER] PO SCH (09:00)
[2024-12-01 09:13] LABS: Hemoglobin A1C 7.4 % (4.5-5.6)
--- NOTE | 2024-12-01 12:42 | Cardiology Progress Note ---
Date of Service December 01, 2024 Assessment & Plan (1) Atrial fibrillation, new onset: (2) Anticoagulant long-term use: (3) Cardiomyopathy: (4) WEEMS (dyspnea on exertion): Plan 1. Atrial fibrillation: She has new or recent onset atrial fibrillation, her symptoms are not significant enough to determine a time of onset. I suspect it has been several months due to her exertional symptoms but I cannot be sure. Evaluation of her vital signs indicates that her heart rate was in the 50s to 60s through July 23, 2024 and at that time electrocardiogram showed sinus rhythm. September 23, 2024 her heart rate was 78 and November 26 it was 89, both higher than prior measurements. It is much faster however here in the emergency room at 127 on presentation. During atrial fibrillation pulse rates can sometimes be erroneously low so she may have been in atrial fibrillation in September. She has remained in atrial fibrillation with a rapid heart rate here. Her heart rate has not changed now on long-acting diltiazem 240 mg daily given this morning. We will need better heart rate control, some of this may be catecholamine driven and I am going to start beta-blockade despite her asthma. I will use a selective beta-saundra (metoprolol succinate) at a low dose. I would prefer to use carvedilol but it is not selective (although most people do tolerate it) and it may have less rate controlling effect at low doses. At some point we should consider cardioversion but I would not do that unless we either cannot get her heart rate controlled (in which case we will need a KYLER guided cardioversion) or 3 to 4 months of anticoagulation has been completed to minimize stroke risk. 2. Anticoagulation: Currently she is on heparin, I would recommend switching to Eliquis at some point although if we are going to do any invasive testing (such as catheterization) perhaps maintaining heparin for the time being is safer. 3. Cardiomyopathy: She does have a cardiomyopathy, it could be rate related as she does have a quite elevated and sustained heart rate. She does however have a possible anterior myocardial infarction on her electrocardiogram and she has anteroseptal wall motion abnormalities so ischemia may also be present. We will probably need to look for ischemia, either by stress testing or catheterization, but I would wait until we have her heart rate better controlled. I discussed this with her and her family who are present. Adding a beta-saundra may be beneficial to her cardiomyopathy. 4. Dyspnea on exertion: She seems to have significant dyspnea on exertion which has worsened recently, that could be from her cardiomyopathy, however she does have lung findings as well. She appears to have had an exacerbation of her asthma which could have been worsened with mild heart failure. I think would be reasonable to give her a dose of a diuretic and I will order that. It is also possibly an anginal equivalent. Admission and Anticipated Discharge Date Admission Date: November 30, 2024 Subjective I gave her a 60 mg dose of diltiazem short acting last evening and 240 mg of long-acting diltiazem this morning but her heart rate remains stable but elevated at around 100. Physical Exam Physical Exam: Constitutional: Alert, cooperative and in no distress. She is resting in bed. HEENT: Unremarkable Neck: No jugular venous distention, carotid pulses are irregular but otherwise normal and equal bilaterally without bruits. Pulmonary: Expiratory wheeze on auscultation bilaterally. Cardiac: Irregular rapid rhythm with no murmur, gallop or rub. Abdomen: Soft, nontender with normal bowel sounds. Extremities: No edema. Neurologic: No focal findings. Skin: No rash, ecchymoses or petechiae. Results & Data Vital Signs (Past 12 Hours) Vital Signs Temp Pulse Resp BP BP Pulse Ox O2 Del Method 12/01/24 10:50 36.3 C L 102 H 18 115/80 95 Nasal Cannula 12/01/24 07:36 36.7 C 107 H 18 127/80 94 Nasal Cannula 12/01/24 02:18 36.6 C 104 H 16 123/77 98 Room Air O2 Flow Rate 12/01/24 10:50 2 12/01/24 07:36 2 12/01/24 02:18 Laboratory Results Coagulation 11/30/24 Range/Units 10:30 APTT 29 (21-31) Seconds Intake and Output 11/30/24 12/01/24 12/01/24 22:59 06:59 14:59 Intake Total 400 / 1737.033 237.033 / 1737.033 Balance 400 / 1737.033 237.033 / 1737.033 Intake: IV 200 / 1537.033 237.033 / 1537.033 Heparin 90677 Unit/500 ml D5w 237.033 / 237.033 25,000 units In 500 ml @ 1,300 UNITS/HR 26 mls/hr IV .[id number] REPLACED BY [facility] Rx#:[id number] Magnesium Sulfate / D5w 1 gm In 100 / 100 100 ml @ 50 mls/hr IV ONE ONE Rx#:[id number] Potassium Chloride / Wtr 10 meq 100 / 100 In 100 ml @ 100 mls/hr IV ONE ONE Rx#:[id number] Oral 200 / 200 Other: # Unmeasured Voids 1 1 Weight 95.708 kg 96.2 kg Weight Measurement Method Standing Scale Diagnostic Findings Telemetry: Atrial fibrillation with a heart rate of a little over 100 cons istently since presentation. PG Care Time/CCT Total # of Minutes Spent Total Time Spent with Patient: Total time spent is greater than 50% in coordination of care (as documented) at patient's floor/unit and/or counseling patient: Coding Level of Care Code 91249 SUB INP/OBS CARE 2/35MIN Diagnoses Atrial fibrillation, new onset I48.91 Anticoagulant long-term use Z79.01 Cardiomyopathy I42.9 WEEMS (dyspnea on exertion) R06.09
[2024-12-01] MEDS: METOPROLOL SUCC 50MG EXT REL TAB PO STA (13:12)
[2024-12-01] MEDS: FUROSEMIDE INJ 20 MG/2 ML VIAL IV ONE (14:04)
--- NOTE | 2024-12-01 17:09 | Hospitalist Progress Note ---
Date of Service December 01, 2024 Assessment & Plan (1) Atrial fibrillation with RVR: (2) Hypokalemia: (3) Hypomagnesemia: (4) Hypoxia: Plan 73-year-old woman with dysphagia, esophageal thickening, T12 vertebral fracture, idiopathic polyneuropathy, diabetes mellitus type 2, obesity, extrinsic asthma, depression with anxiety, and dyslipidemia. She had presented to the endoscopy suite this morning for routine EGD and colonoscopy, however, she was found to be in atrial fibrillation with RVR, the procedure was not performed, she was sent to the ED for assessment. # New onset atrial fibrillation with RVR/hypertension- Echo - EF 35-40% abnormal septal motion Discussed with Dr Payne - will need ischemic evaluation TBD whether stress or cath and timing, cardiomyopathy could also be from tachyarrhythmia -rate better controlled through the day after dose of 240 mg dilt long acting -currently therapeutic on heparin and plan to transition to DOAC -hypoxia related to rapid afib and is resolving, diurese if persisting but euvolemic on exam today # Electrolyte disturbances- Hypokalemia and hypomagnesemia related to bowel prep and were replaced # Asthma Continue Advair Diskus, and albuterol l HFA 2 puffs every 6 hours as needed # Diabetes mellitus type 2 - A1c 7.4% Reduced glargine from 20 to 10 units SQ every morning Hold metformin and Mounjaro Placed on Accu-Cheks with NovoLog SSI -BG remains slightly overcontrolled today, consider further reduction of glargine Hyperlipidemia- Continue atorvastatin Depression with anxiety/peripheral neuropathy Continue duloxetine, trazodone, pregabalin and meloxicam GERD- Continue omeprazole/pantoprazole Admission and Anticipated Discharge Date Admission Date: November 30, 2024 Subjective felt WEEMS and tachycardic to 130s while up to bathroom, dyspnea resolved once she sat back in bed did not have chest pain has been having WEEMS for at least weeks Physical Exam 2 Physical Exam: Last 24h vitals reviewed GEN: no acute distress, sitting in bed HEENT: pupils equal, sclerae anicteric, moist MM RESP: normal WOB, CTAB CV: irreg irreg no mrg ABD: soft/nt/nd +BT : no marquez SKIN: warm and dry, no generalized rashes NEURO: AOx person, place, and situation. Face symmetric, speech normal, moves 4 ext spontaneously and equally Results & Data Results & Data Vital Signs (Past 12 Hours) Vital Signs Temp Pulse Resp BP Pulse Ox O2 Del Method O2 Flow Rate 12/01/24 14:37 36.6 C 78 18 119/72 94 Nasal Cannula 2.0 12/01/24 10:50 36.3 C L 102 H 18 115/80 95 Nasal Cannula 2 12/01/24 07:36 36.7 C 107 H 18 127/80 94 Nasal Cannula 2 Laboratory Results 11/30/24 10:30 11/30/24 10:30 Xa 0.43 PG Care Time/CCT Total # of Minutes Spent Total Time Spent with Patient: Total time spent is greater than 50% in coordination of care (as documented) at patient's floor/unit and/or counseling patient: Coding Level of Care Code 87761 SUB INP/OBS CARE 3/50MIN Diagnoses Atrial fibrillation with RVR I48.91 Hypokalemia E87.6 Hypomagnesemia E83.42 Hypoxia R09.02
[2024-12-02 06:05] LABS: Anion Gap 7.0 (3-11); Blood Urea Nitrogen 12.0 mg/dl (6-23); Calcium 8.9 mg/dl (8.6-10.3); Carbon Dioxide 27.0 mmol/L (21-32); Chloride 105.0 mmol/L (98-107); Creatinine Clr Calc Pharmacy 65.3 ml/min; Glucose 147.0 mg/dl (70-99(Fasting)); Potassium 3.5 mmol/L (3.5-5.1); Sodium 139.0 mmol/L (136-145)
[2024-12-02 06:13] LABS: ANTI-Xa, UFH(UnfractionatedHep 0.57 IU/ml (0.3-0.7)
[2024-12-02] MEDS: METOPROLOL SUCC 50MG EXT REL TAB PO SCH (09:18)
[2024-12-02 10:34] LABS: Magnesium 2.0 mg/dl (1.7-2.4)
--- NOTE | 2024-12-02 10:44 | Pre Anesthesia Assessment ---
Date of Service December 02, 2024 Pre Sedation Assessment Vital Signs Temp Pulse Pulse Resp BP BP Pulse Ox 12/02/24 10:15 93 H 18 134/67 95 12/02/24 10:10 12/02/24 07:33 36.8 C 93 H 18 135/77 93 12/02/24 03:21 36.4 C L 91 H 16 106/69 96 12/01/24 23:59 36.7 C 89 18 154/86 H 96 12/01/24 22:06 96 H 12/01/24 21:00 12/01/24 19:13 36.6 C 100 H 18 125/74 96 12/01/24 14:37 36.6 C 78 18 119/72 94 12/01/24 10:50 36.3 C L 102 H 18 115/80 95 O2 Del Method O2 Flow Rate 12/02/24 10:15 Room Air 12/02/24 10:10 Room Air 12/02/24 07:33 Room Air 12/02/24 03:21 Nasal Cannula 2 12/01/24 23:59 Nasal Cannula 2 12/01/24 22:06 12/01/24 21:00 Nasal Cannula 2 12/01/24 19:13 Nasal Cannula 2 12/01/24 14:37 Nasal Cannula 2.0 12/01/24 10:50 Nasal Cannula 2 Cardiovascular RRR, no murmur, no edema Respiratory normal respiratory effort, lungs clear to auscultation Pre-Sedation Airway Assessment Smoking Status: Never smoker Short, Thick Neck: No Thyromental Distance: < 3.5 Finger Breadths Oral Cavity: + Dentures Mallampati Class: III ASA: ASA3 NPO Status Date of Last Intake of Fluids: 12/02/24 Time of Last Intake of Fluids: 00:00 Date of Last Intake of Solid Food: 12/02/24 Time of Last Intake of Solid Foods: 00:00 Notes The planned sedation has been discussed with the patient. Informed Consent was obtained. I have identified the patient, determined the appropriateness of sedation and have assessed the patient immediately prior to the procedure. All medicine(s) and interventions are by my order.
[2024-12-02] MEDS: MIDAZOLAM HCL 1 MG/ML 2ML VIAL ONE (11:23)
[2024-12-02] MEDS: OPTIRAY 350 ONE (11:24)
[2024-12-02] MEDS: NITROGLYCERIN/D5W 100MCG/ML 20ML SYR ONE (11:25)
[2024-12-02] MEDS ORDERED: ACETAMINOPHEN 325 MG TAB PO PRN (11:25)
[2024-12-02] MEDS: niCARdipine 2,000 MCG/20 ML SYR ONE (11:25)
--- NOTE | 2024-12-02 11:25 | Post Anesthesia Assessment ---
Date of Service December 02, 2024 Post Sedation Assessment Vital Signs Temp Pulse Pulse Resp BP BP Pulse Ox 12/02/24 10:15 93 H 18 134/67 95 12/02/24 10:10 12/02/24 07:33 36.8 C 93 H 18 135/77 93 12/02/24 03:21 36.4 C L 91 H 16 106/69 96 12/01/24 23:59 36.7 C 89 18 154/86 H 96 12/01/24 22:06 96 H 12/01/24 21:00 12/01/24 19:13 36.6 C 100 H 18 125/74 96 12/01/24 14:37 36.6 C 78 18 119/72 94 O2 Del Method O2 Flow Rate 12/02/24 10:15 Room Air 12/02/24 10:10 Room Air 12/02/24 07:33 Room Air 12/02/24 03:21 Nasal Cannula 2 12/01/24 23:59 Nasal Cannula 2 12/01/24 22:06 12/01/24 21:00 Nasal Cannula 2 12/01/24 19:13 Nasal Cannula 2 12/01/24 14:37 Nasal Cannula 2.0 Recovery Score Activity: Moves 4 extremities Respiration: Deep Breath/Cough Circulation: +/-20% PreAnes Value Consciousness: Fully Awake Oxygen Saturation: > 92% On Room Air Discharge Sedation Level of Care: Fast Track Phase II Post Sedation Plan On clinical assessment, the patient appears to have tolerated the sedation without complications. Patient is recovering as anticipated. Patient will continue to be monitored by nursing and may be discharged when sedation discharge criteria are met per below protocol. Upon Completions of procedure up to 15 minutes continue every 5 minute vital signs and the P.A.R. score; then discharge to a Phase I or Fast Track to Phase II per the following guidelines: * Discharge Patient to appropriate Phase II area if PAR is 8 or greater or return to pre- procedure baseline. The post - procedure orders will be as directed. * If PAR score is less than 8 or not return to pre-procedure baseline then patient will follow Phase I monitoring till PAR is reached for Phase II. The Phase I may be done in procedure room or may call to secure a Phase I area. * If naloxone or flumazenil are used for reversal, hold in Phase I for continued monitoring from when last reversal dose was given for a minimum of 60 minutes or longer pending the nurse and/or physician discretion of patient condition before discharge to Phase II. Please call the Sedation Physician to re-evaluate and complete post-note for discharge to Phase II area. Do NOT discharge from procedure sedation or Phase 1 until post- sedation evaluation note is complete by procedure /sedation MD Sedation Discharge Instructions to be given to the patient at discharge to home. [facility] Procedure Codes (Charges) Indication for Procedure Indication for procedure: Atrial fibrillation Sedation/Anesthesia Procedure 1: Sedation/Anesthesia: 57437 Mod Sedation by the same physician;Init15 Min Child Age 5 & Up (Initial 15 minutes, start time 1111, end time 1120) Total Sedation Time (minutes): 9
[2024-12-02] MEDS: HEPARIN (PORCINE) 1000 UNIT/ML 10 ML (CATH LAB USE ONLY) ONE (11:26)
--- NOTE | 2024-12-02 14:26 | Cardiology Progress Note ---
Date of Service December 02, 2024 Assessment & Plan (1) Atrial fibrillation, new onset: (2) Anticoagulant long-term use: (3) Cardiomyopathy: (4) WEEMS (dyspnea on exertion): Plan 1. Atrial fibrillation: She has new or recent onset atrial fibrillation, her symptoms are not significant enough to determine a time of onset. I suspect it has been several months due to her exertional symptoms but I cannot be sure. Evaluation of her vital signs indicates that her heart rate was in the 50s to 60s through July 23, 2024 and at that time electrocardiogram showed sinus rhythm. September 23, 2024 her heart rate was 78 and November 26 it was 89, both higher than prior measurements. It is much faster however here in the emergency room at 127 on presentation. During atrial fibrillation pulse rates can sometimes be erroneously low so she may have been in atrial fibrillation in September. She has remained in atrial fibrillation with a rapid heart rate here. Her heart rate has not changed now on long-acting diltiazem 240 mg daily given this morning. We will need better heart rate control, some of this may be catecholamine driven and I am going to start beta-blockade despite her asthma. Her heart rate is better controlled after the addition of metoprolol succinate 50 mg daily, although still a bit high. It has not caused bronchospasm, her lungs sound better today on the beta-saundra after receiving IV Lasix yesterday. At some point we should consider cardioversion but I would not do that unless we either cannot get her heart rate controlled (in which case we will need a KYLER guided cardioversion) or 3 to 4 months of anticoagulation has been completed to minimize stroke risk. 2. Anticoagulation: Currently she is on heparin, I would recommend switching to Eliquis at this point and I will make that change this evening. 3. Cardiomyopathy: She does have a cardiomyopathy, it could be rate related as she does have a quite elevated and sustained heart rate. Based on her catheterization it is not ischemic. It is most likely rate related from her atrial fibrillation, I would recommend continuing treatment with beta-blockade and her OSCAR inhibitor as well as rate control with diltiazem. I do not think we need other medications for her cardiomyopathy as it may correct quickly with rate control. If it does not we can investigate other causes and increase her medical therapy but this can be done as an outpatient. 4. Dyspnea on exertion: She seems to have significant dyspnea on exertion which has worsened recently, that could be from her cardiomyopathy, however she does have lung findings as well. She appears to have had an exacerbation of her asthma which could have been worsened with mild heart failure. Her lungs sound better now after Lasix yesterday, I am going to give her another dose today. I suspect she can go home soon, it might be a good idea to keep her overnight however with all of these medication changes. Admission and Anticipated Discharge Date Admission Date: November 30, 2024 Subjective Her catheterization today shows normal coronary arteries. I had to awaken her from a deep sleep, she is not short of breath this afternoon. She reports having significant shortness of breath this morning when she woke up. No awareness of her heart rhythm. Physical Exam Physical Exam: Constitutional: Alert, cooperative and in no distress. She is resting in bed. HEENT: Unremarkable Neck: No jugular venous distention, carotid pulses are irregular but otherwise normal and equal bilaterally without bruits. Pulmonary: Clear to auscultation bilaterally. Cardiac: Irregular rhythm with no murmur, gallop or rub. Abdomen: Soft, nontender with normal bowel sounds. Extremities: No edema. Neurologic: No focal findings. Skin: No rash, ecchymoses or petechiae. Results & Data Vital Signs (Past 12 Hours) Vital Signs Temp Pulse Resp BP Pulse Ox O2 Del Method O2 Flow Rate 12/02/24 13:44 87 17 111/72 94 Room Air 12/02/24 13:15 88 22 123/71 96 Room Air 12/02/24 12:45 96 H 20 136/78 95 Room Air 12/02/24 12:30 89 20 128/74 95 Room Air 12/02/24 12:10 96 H 18 148/81 H 95 Room Air 12/02/24 12:00 36.9 C 100 H 20 124/77 93 Room Air 12/02/24 11:42 104 H 16 130/79 94 Room Air 12/02/24 11:27 107 H 16 136/74 93 Room Air 12/02/24 10:15 93 H 18 134/67 95 Room Air 12/02/24 10:10 Room Air 12/02/24 07:33 36.8 C 93 H 18 135/77 93 Room Air 12/02/24 03:21 36.4 C L 91 H 16 106/69 96 Nasal Cannula 2 Laboratory Results Comprehensive Metabolic Panel 12/02/24 Range/Units 05:11 Sodium 139 (136-145) mmol/L Potassium 3.5 (3.5-5.1) mmol/L Chloride 105 (98-107) mmol/L Carbon Dioxide 27 (21-32) mmol/L BUN 12 (6-23) mg/dl Creatinine 0.87 (0.6-1.2) mg/dl Glucose 147 H (70-99(Fasting)) mg/dl Calcium 8.9 (8.6-10.3) mg/dl Intake and Output 12/01/24 12/02/24 12/02/24 22:59 06:59 14:59 Intake Total 461.933 / 933.766 40.667 / 40.667 Output Total 875 / 1275 400 / 1275 Balance -875 / -341.234 61.933 / -341.234 40.667 / 40.667 Intake: IV 461.933 / 693.766 40.667 / 40.667 Heparin 44784 Unit/500 ml D5w 461.933 / 693.766 40.667 / 40.667 25,000 units In 500 ml @ 1,300 UNITS/HR 26 mls/hr IV .[id number] [facility] Rx#:[id number] Output: Urine 875 / 1275 400 / 1275 Other: Other Intake Source Patient is NPO Weight 97.2 kg Weight Measurement Method Standing Scale Diagnostic Findings Telemetry: Atrial fibrillation, heart rate improved, averaging somewhat under 100 bpm PG Care Time/CCT Total # of Minutes Spent Total Time Spent with Patient: Total time spent is greater than 50% in coordination of care (as documented) at patient's floor/unit and/or counseling patient: Coding Level of Care Code 52163 SUB INP/OBS CARE 3/50MIN Diagnoses Atrial fibrillation, new onset I48.91 Anticoagulant long-term use Z79.01 Cardiomyopathy I42.9 WEEMS (dyspnea on exertion) R06.09
[2024-12-02] MEDS: METOPROLOL SUCC 50MG EXT REL TAB PO STA (14:36)
[2024-12-02] MEDS: FUROSEMIDE INJ 20 MG/2 ML VIAL IV ONE (14:36)
--- NOTE | 2024-12-02 18:34 | Hospitalist Progress Note ---
Date of Service December 02, 2024 Assessment & Plan (1) Atrial fibrillation with RVR: (2) Hypokalemia: (3) Hypomagnesemia: (4) Hypoxia: Plan 73-year-old woman with dysphagia, esophageal thickening, T12 vertebral fracture, idiopathic polyneuropathy, diabetes mellitus type 2, obesity, extrinsic asthma, depression with anxiety, and dyslipidemia. She had presented to the endoscopy suite this morning for routine EGD and colonoscopy, however, she was found to be in atrial fibrillation with RVR, the procedure was not performed, she was sent to the ED for assessment. # New onset atrial fibrillation with RVR/hypertension- Echo - EF 35-40% abnormal septal motion Coronary angiography 12/02 no severe CAD did not need PCI await formal report, cardiomyopathy could be from tachyarrhythmia -continue dilt 240 mg, metoprolol 100 mg -stopped heparin and start apixaban tonight -has had a few doses IV lasix per cardiology with improvement in hypoxia - 90% on RA -discussed plan of care with Dr. Payne # Electrolyte disturbances- Hypokalemia and hypomagnesemia related to bowel prep and were replaced -K 3.5 and mag 2.0 today # Asthma Continue Advair Diskus, and albuterol l HFA 2 puffs every 6 hours as needed # Diabetes mellitus type 2 - A1c 7.4% Reduced glargine from 20 to 10 units SQ every morning Hold metformin and Mounjaro Placed on Accu-Cheks with NovoLog SSI -BG at goal today Hyperlipidemia- Continue atorvastatin Depression with anxiety/peripheral neuropathy Continue duloxetine, trazodone, pregabalin and meloxicam GERD- Continue omeprazole/pantoprazole Probably home tomorrow if rate controlled and tolerating current new meds, monitoring for dose response Admission and Anticipated Discharge Date Admission Date: November 30, 2024 Subjective Shortness of breath is definitely better No chest pain Physical Exam 2 Physical Exam: Last 24h vitals reviewed GEN: no acute distress, up in chair HEENT: pupils equal, sclerae anicteric, moist MM RESP: normal WOB, CTAB CV: irreg irreg no mrg ABD: soft/nt/nd +BT : no marquez SKIN: warm and dry, no generalized rashes R wrist acces site at radial art - no swelling pulse intact, hand warm NEURO: AOx person, place, and situation. Face symmetric, speech normal, moves 4 ext spontaneously and equally Results & Data Results & Data Vital Signs (Past 12 Hours) Vital Signs Temp Pulse Resp BP Pulse Ox O2 Del Method 12/02/24 16:01 36.3 C L 84 18 127/68 90 Room Air 12/02/24 13:44 87 17 111/72 94 Room Air 12/02/24 13:15 88 22 123/71 96 Room Air 12/02/24 12:45 96 H 20 136/78 95 Room Air 12/02/24 12:30 89 20 128/74 95 Room Air 12/02/24 12:10 96 H 18 148/81 H 95 Room Air 12/02/24 12:00 36.9 C 100 H 20 124/77 93 Room Air 12/02/24 11:42 104 H 16 130/79 94 Room Air 12/02/24 11:27 107 H 16 136/74 93 Room Air 12/02/24 10:15 93 H 18 134/67 95 Room Air 12/02/24 10:10 Room Air 12/02/24 07:33 36.8 C 93 H 18 135/77 93 Room Air Laboratory Results 11/30/24 10:30 12/02/24 05:11 Mag 2.0 A1c 7.4 PG Care Time/CCT Total # of Minutes Spent Total Time Spent with Patient: Total time spent is greater than 50% in coordination of care (as documented) at patient's floor/unit and/or counseling patient: Coding Level of Care Code 66684 SUB INP/OBS CARE 2/35MIN Diagnoses Atrial fibrillation with RVR I48.91 Hypokalemia E87.6 Hypomagnesemia E83.42 Hypoxia R09.02
[2024-12-02] MEDS: APIXABAN 5 MG TABLET PO SCH (20:05)
[2024-12-03] MEDS: METOPROLOL SUCC 50MG EXT REL TAB PO SCH (08:39)
[2024-12-03] MEDS: POTASSIUM CHLORIDE CRTAB 20 MEQ TABCR PO SCH (11:15)
[2024-12-03] MEDS: FUROSEMIDE 40 MG/4 ML VIAL IV SCH (11:15)
--- NOTE | 2024-12-03 15:08 | Electrocardiogram Report ---
Test Reason : Blood Pressure : */* mmHG Vent. Rate : 123 BPM Atrial Rate : * BPM P-R Int : * ms QRS Dur : 90 ms QT Int : 362 ms P-R-T Axes : * 16 -29 degrees QTcB Int : 518 ms Atrial fibrillation with rapid ventricular response Nonspecific ST and T wave abnormality Abnormal ECG When compared with ECG of 30-Nov-2024 10:26, (unconfirmed) Borderline criteria for Anterior infarct are no longer Present Confirmed by Declan Payne ([id number]) on 12/03/2024 3:08:14 PM Referred By: REFERRED SELF Confirmed By: Declan Payne
--- NOTE | 2024-12-03 15:19 | Electrocardiogram Report ---
Test Reason : Blood Pressure : */* mmHG Vent. Rate : 92 BPM Atrial Rate : * BPM P-R Int : * ms QRS Dur : 90 ms QT Int : 374 ms P-R-T Axes : * 16 -2 degrees QTcB Int : 462 ms Atrial fibrillation Cannot rule out Inferior infarct , age undetermined Abnormal ECG When compared with ECG of 01-Dec-2024 05:57, (unconfirmed) No significant change was found Confirmed by Declan Payne ([id number]) on 12/03/2024 3:19:26 PM Referred By: REFERRED SELF Confirmed By: Declan Payne
--- NOTE | 2024-12-03 15:42 | Hospitalist Progress Note ---
Date of Service December 03, 2024 Assessment & Plan (1) Atrial fibrillation with RVR: (2) Hypokalemia: (3) Hypomagnesemia: (4) Hypoxia: Plan 73-year-old woman with dysphagia, esophageal thickening, T12 vertebral fracture, idiopathic polyneuropathy, diabetes mellitus type 2, obesity, extrinsic asthma, depression with anxiety, and dyslipidemia. She had presented to the endoscopy suite this morning for routine EGD and colonoscopy, however, she was found to be in atrial fibrillation with RVR, the procedure was not performed, she was sent to the ED for assessment. # New onset atrial fibrillation with RVR/hypertension- Echo - EF 35-40% abnormal septal motion Coronary angiography 12/02 no severe CAD did not need PCI await formal report, cardiomyopathy could be from tachyarrhythmia -continue dilt 240 mg, metoprolol 100 mg, apixaban # WEEMS and orthopnea volume status not completely clear but may still have volume overload discussed with Dr. Payne -increase diuresis to lasix 40 IV bid and potassium supp ordered -AM BMP mag # Electrolyte disturbances- Hypokalemia and hypomagnesemia related to bowel prep and were replaced -K 3.5 and mag 2.0 today # Asthma Continue Advair Diskus, and albuterol l HFA 2 puffs every 6 hours as needed Not wheezing and doubt asthma playing a role in current dyspnea # Diabetes mellitus type 2 - A1c 7.4% Reduced glargine from 20 to 10 units SQ every morning Hold metformin and Mounjaro Placed on Accu-Cheks with NovoLog SSI -BG at goal 12/03 Hyperlipidemia- Continue atorvastatin Depression with anxiety/peripheral neuropathy Continue duloxetine, trazodone, pregabalin and meloxicam GERD- Continue omeprazole/pantoprazole assess response to IV diuresis Admission and Anticipated Discharge Date Admission Date: November 30, 2024 Subjective HR now well controlled but had a pretty dramatic episode of PND overnight. [place] she had to lie flat after that Has been having PND at home for awhile which is accelerating, she then gets into her recliner No dyspnea at rest, but still has WEEMS Physical Exam 2 Physical Exam: Last 24h vitals reviewed GEN: no acute distress, up in chair HEENT: pupils equal, sclerae anicteric, moist MM RESP: normal WOB, bibasilar crackles at least 1/4 [address] up no wheezing CV: irreg irreg no mrg ABD: soft/nt/nd +BT : no marquez SKIN: warm and dry, no generalized rashes 1+ ankle edema NEURO: AOx person, place, and situation. Face symmetric, speech normal, moves 4 ext spontaneously and equally Results & Data Results & Data Vital Signs (Past 12 Hours) Vital Signs Temp Pulse Resp BP BP Pulse Ox O2 Del Method 12/03/24 11:23 36.3 C L 74 18 121/79 100 Room Air 12/03/24 08:54 Room Air 12/03/24 07:09 36.7 C 88 19 127/75 97 Nasal Cannula O2 Flow Rate 12/03/24 11:23 12/03/24 08:54 12/03/24 07:09 2 Laboratory Results 11/30/24 10:30 12/02/24 05:11 PG Care Time/CCT Total # of Minutes Spent Total Time Spent with Patient: Total time spent is greater than 50% in coordination of care (as documented) at patient's floor/unit and/or counseling patient: Coding Level of Care Code 46165 SUB INP/OBS CARE 3/50MIN Diagnoses Atrial fibrillation with RVR I48.91 Hypokalemia E87.6 Hypomagnesemia E83.42 Hypoxia R09.02
--- NOTE | 2024-12-03 17:53 | Cardiology Progress Note ---
Date of Service December 03, 2024 Assessment & Plan (1) Atrial fibrillation, new onset: (2) Anticoagulant long-term use: (3) Cardiomyopathy: (4) WEEMS (dyspnea on exertion): Plan 1. Atrial fibrillation: She has new or recent onset atrial fibrillation, her symptoms are not significant enough to determine a time of onset. I suspect it has been several months due to her exertional symptoms but I cannot be sure. Evaluation of her vital signs indicates that her heart rate was in the 50s to 60s through July 23, 2024 and at that time electrocardiogram showed sinus rhythm. September 23, 2024 her heart rate was 78 and November 26 it was 89, both higher than prior measurements. It is much faster however here in the emergency room at 127 on presentation. During atrial fibrillation pulse rates can sometimes be erroneously low so she may have been in atrial fibrillation in September. She has remained in atrial fibrillation with a rapid heart rate here. Her heart rate has not changed now on long-acting diltiazem 240 mg daily given this morning. We will need better heart rate control, some of this may be catecholamine driven and I am going to start beta-blockade despite her asthma. Her heart rate is better controlled after the addition of metoprolol succinate 50 mg daily, although still a bit high. It has not caused bronchospasm, her lungs sound better today on the beta-saundra after receiving IV Lasix yesterday. At some point we should consider cardioversion but I would not do that unless we either cannot get her heart rate controlled (in which case we will need a KYLER guided cardioversion) or 3 to 4 months of anticoagulation has been completed to minimize stroke risk. 2. Anticoagulation: Currently she is on heparin, I would recommend switching to Eliquis at this point and I will make that change this evening. 3. Cardiomyopathy: She does have a cardiomyopathy, it could be rate related as she does have a quite elevated and sustained heart rate. Based on her catheterization it is not ischemic. It is most likely rate related from her atrial fibrillation, I would recommend continuing treatment with beta-blockade and her OSCAR inhibitor as well as rate control with diltiazem. I do not think we need other medications for her cardiomyopathy as it may correct quickly with rate control. If it does not we can investigate other causes and increase her medical therapy but this can be done as an outpatient. 4. Dyspnea on exertion: She seems to have significant dyspnea on exertion which has worsened recently, that could be from her cardiomyopathy, however she does have lung findings as well. She appears to have had an exacerbation of her asthma which could have been worsened with mild heart failure. Her lungs sound better now after Lasix yesterday, but she does seem to be somewhat fluid overloaded with pedal edema and her symptoms. Agree with diuresis and I am going to make sure she is on a fluid restriction. I suspect she can go home soon, it might be a good idea to keep her overnight however with all of these medication changes. Admission and Anticipated Discharge Date Admission Date: November 30, 2024 Subjective She is sitting up in her chair in her room, she is not having any symptoms while sitting there. She does have difficulty with shortness of breath at night which sounds like PND, and this happened again last night. She also notes pedal edema now after having her legs down. It sounds as though she drinks a fair amount of water at home, and may be drinking too much here although it is hard to tell. Physical Exam Physical Exam: Constitutional: Alert, cooperative and in no distress. She is resting in bed. HEENT: Unremarkable Neck: No jugular venous distention, carotid pulses are irregular but otherwise normal and equal bilaterally without bruits. Pulmonary: Clear to auscultation bilaterally. Cardiac: Irregular rhythm with no murmur, gallop or rub. Abdomen: Soft, nontender with normal bowel sounds. Extremities: +2 bilateral pedal edema. Neurologic: No focal findings. Skin: No rash, ecchymoses or petechiae. Results & Data Vital Signs (Past 12 Hours) Vital Signs Temp Pulse Resp BP BP Pulse Ox O2 Del Method 12/03/24 11:23 36.3 C L 74 18 121/79 100 Room Air 12/03/24 08:54 Room Air 12/03/24 07:09 36.7 C 88 19 127/75 97 Nasal Cannula O2 Flow Rate 12/03/24 11:23 12/03/24 08:54 12/03/24 07:09 2 PG Care Time/CCT Total # of Minutes Spent Total Time Spent with Patient: Total time spent is greater than 50% in coordination of care (as documented) at patient's floor/unit and/or counseling patient: Coding Level of Care Code 39012 SUB INP/OBS CARE 2/35MIN Diagnoses Atrial fibrillation, new onset I48.91 Anticoagulant long-term use Z79.01 Cardiomyopathy I42.9 WEEMS (dyspnea on exertion) R06.09
[2024-12-04 06:10] LABS: Anion Gap 6.0 (3-11); Blood Urea Nitrogen 23.0 mg/dl (6-23); Calcium 9.1 mg/dl (8.6-10.3); Carbon Dioxide 29.0 mmol/L (21-32); Chloride 104.0 mmol/L (98-107); Creatinine Clr Calc Pharmacy 55.2 ml/min; Glucose 174.0 mg/dl (70-99(Fasting)); Magnesium 1.8 mg/dl (1.7-2.4); Potassium 3.6 mmol/L (3.5-5.1); Sodium 139.0 mmol/L (136-145)
--- NOTE | 2024-12-04 09:48 | Electrocardiogram Report ---
Test Reason : Blood Pressure : */* mmHG Vent. Rate : 121 BPM Atrial Rate : * BPM P-R Int : * ms QRS Dur : 94 ms QT Int : 324 ms P-R-T Axes : * 7 -14 degrees QTcB Int : 460 ms Atrial fibrillation with rapid ventricular response Possible Anterior infarct (cited on or before 13-Nov-2015) Abnormal ECG When compared with ECG of 18-Jul-2024 14:08, Atrial fibrillation has replaced Sinus rhythm Vent. rate has increased by 66 bpm Nonspecific T wave abnormality, worse in Inferior leads Nonspecific T wave abnormality now evident in Lateral leads Confirmed by Declan Payne ([id number]) on 12/04/2024 9:48:27 AM Referred By: REFERRED SELF Confirmed By: Declan Payne
[2024-12-04] MEDS: POTASSIUM CHLORIDE CRTAB 20 MEQ TABCR PO SCH (17:30)
--- NOTE | 2024-12-04 18:53 | Hospitalist Progress Note ---
Date of Service December 04, 2024 Assessment & Plan (1) Atrial fibrillation with RVR: (2) Hypokalemia: (3) Hypomagnesemia: (4) Hypoxia: Plan 73-year-old woman with dysphagia, esophageal thickening, T12 vertebral fracture, idiopathic polyneuropathy, diabetes mellitus type 2, obesity, extrinsic asthma, depression with anxiety, and dyslipidemia. She had presented to the endoscopy suite this morning for routine EGD and colonoscopy, however, she was found to be in atrial fibrillation with RVR, the procedure was not performed, she was sent to the ED for assessment. # New onset atrial fibrillation with RVR/hypertension- Echo - EF 35-40% abnormal septal motion Coronary angiography 12/02 no severe CAD did not need PCI await formal report, cardiomyopathy could be from tachyarrhythmia -continue dilt 240 mg, metoprolol 100 mg, apixaban # Acute HFrEF -good symptomatic response to diuresis since yesterday afternoon. Net neg 3L. 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 # Asthma Continue Advair Diskus, and albuterol l HFA 2 puffs every 6 hours as needed Not wheezing and doubt asthma playing a role in current dyspnea Usually has just seasonal asthma, "flare" over past two weeks was cardiac related # Diabetes mellitus type 2 - A1c 7.4% Reduced glargine from 20 to 10 units SQ every morning Hold metformin and Mounjaro Placed on Accu-Cheks with NovoLog SSI -BG at goal 12/03 Hyperlipidemia- Continue atorvastatin Depression with anxiety/peripheral neuropathy Continue duloxetine, trazodone, pregabalin and meloxicam GERD- Continue omeprazole/pantoprazole assess response to IV diuresis home tomorrow? HF clinic referral Admission and Anticipated Discharge Date Admission Date: November 30, 2024 Subjective Dyspnea on exertion is improved though still present, tired after 2 laps on unit No SOB at rest and slept without orthopnea Tele - continues in afib but rates now controlled Physical Exam 2 Physical Exam: Last 24h vitals reviewed GEN: up in chair HEENT: pupils equal, sclerae anicteric, moist MM RESP: normal WOB, bilateral crackles long term up. pocus exam - A lines in both apices, B lines bilateral mid and lower olivas posteriorly c/w pulmonary edema CV: irreg irreg no mrg ABD: soft/nt/nd +BT : no marquez SKIN: warm and dry, no generalized rashes mild foot/ankle edema. pitting only on foot NEURO: AOx person, place, and situation. Face symmetric, speech normal, moves 4 ext spontaneously and equally Results & Data Results & Data Vital Signs (Past 12 Hours) Vital Signs Temp Pulse Resp BP Pulse Ox O2 Del Method O2 Flow Rate 12/04/24 15:17 36.7 C 64 19 111/67 92 Room Air 12/04/24 11:36 36.9 C 83 21 136/69 93 Room Air 12/04/24 10:00 Room Air, Nasal Cannula 2 12/04/24 07:19 36.6 C 97 H 21 135/84 92 Room Air Laboratory Results 11/30/24 10:30 12/04/24 05:26 PG Care Time/CCT Total # of Minutes Spent Total Time Spent with Patient: Total time spent is greater than 50% in coordination of care (as documented) at patient's floor/unit and/or counseling patient: Coding Level of Care Code 07526 SUB INP/OBS CARE 3/50MIN Diagnoses Atrial fibrillation with RVR I48.91 Hypokalemia E87.6 Hypomagnesemia E83.42 Hypoxia R09.02
[2024-12-05 06:18] LABS: Anion Gap 7.0 (3-11); Blood Urea Nitrogen 28.0 mg/dl (6-23); Calcium 9.3 mg/dl (8.6-10.3); Carbon Dioxide 27.0 mmol/L (21-32); Chloride 104.0 mmol/L (98-107); Creatinine Clr Calc Pharmacy 66.2 ml/min; Glucose 176.0 mg/dl (70-99(Fasting)); Magnesium 2.0 mg/dl (1.7-2.4); Potassium 4.1 mmol/L (3.5-5.1); Sodium 138.0 mmol/L (136-145)
--- NOTE | 2024-12-05 11:50 | Cardiac Catheterization ---
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: Network Engineer Cardiac Status Clinical evaluation leading to the procedure CAD Presenation: Sx unlikely to be ischemic (Dyspnea, CHF, atrial fibrillation) Anginal Classification: CCS IV (Dyspnea) Heart Failure: Yes Cardiogenic Shock within 24 Hours: No Cardiac Arrest within 24 Hours: No Imaging Studies Past 6 Months: Yes Stress Studies Past 6 Months: No Coronary Anatomy Left Main (% Stenosis): Normal LAD (% Stenosis): Normal D1 (% Stenosis): Normal D2 (% Stenosis): Normal Circumflex (% Stenosis): Normal OM1 (% Stenosis): Normal OM2 (% Stenosis): Normal L PL1 (% Stenosis): Normal RCA (% Stenosis): Proximal (Calcified 20%) R PL1 (% Stenosis): Normal R PL2 (% Stenosis): Normal Ramus (% Stenosis): Normal Diagnostic Physicians Name: Salinas Orozco MD, PhD Closure Device Percutaneous Entry Location: Radial Closure Device: Radial Band Recommendations: Medical Therapy and/or Counseling Cardiac Cath Procedure Full Procedure Date December 02, 2024 Pre-Procedure Diagnosis Pre-Procedure Diagnosis: Cardiomyopathy and Arrhythmia AUC Score AUC Score: 07 Post-Procedure Diagnosis Post-Procedure Diagnosis: Normal Coronary Arteries Procedure(s) Performed Procedure(s) Performed: Coronary Angiography Sand Mixer Salinas Orozco MD, PhD Estimated Blood Loss Estimated Blood Loss: Less than 3 cc Medication(s) Medication(s): Fentanyl, Heparin, Lidocaine 1%, Nicardipine, Nitroglycerin and Versed Summary of Findings Brief description: Patient was brought to the cardiac catheterization suite where she was shaved and prepped in a sterile fashion. Sedated using IV Versed and fentanyl. Soft tissues of the right wrist were anesthetized using 2 mL of 1% Xylocaine. Right radial artery was accessed using a modified Seldinger technique and a 6 Thai radial artery glide sheath was placed. Patient was provided anticoagulation with IV heparin and antispasmodics including nicardipine and nitroglycerin. All catheters were advanced and exchanged over a 0.035 J-tip wire. Left coronary angiography in orthogonal views with a 5 Thai [place] 4 diagnostic catheter. Right coronary angiography in orthogonal views with a 5 Thai [place] 4 diagnostic catheter. Catheters were removed. Radial artery sheath was removed. Hemostasis was obtained using the TR band. Patient remained hemodynamically stable and asymptomatic. She was returned to the recovery area. This ended the case. Coronary angiography findings: DBC-namoh-tgnegro vessel trifurcating into LAD, ramus, and circumflex. No disease. UTD-cdmlw-qcrisbx and transapical. Proximal and mid vessel have mild calcification. A large bifid septal is present. This is followed by a large branching first diagonal and then a large second diagonal. There is no more than mild luminal irregularities in the LAD and its branches. Ramus-this is small caliber without disease. Left hnmafsuwnf-rakyf-ncgffxd and nondominant. Provides an OM1, OM 2, and terminates with a posterolateral branch. There is no angiographically evident disease in the circumflex or its branches. RCA-large caliber and dominant. Bifurcates distally into a large PDA and a large multi branching posterolateral. Proximal RCA has calcification and less than 20% stenosis. The remainder of the RCA and its branches have no more than luminal irregularities. Summary: 1. No significant epicardial coronary artery disease 2. Guideline directed medical therapy for primary prevention as well as treatment of cardiomyopathy. Hemodynamics Rest Ao:: 121/88 mmHg Final Ao: 125/92 mmHg LV: Not performed Recommendations Recommendations: Medical Therapy and/or Counseling Radiation Exposure (mGy) 598 mGy, fluoroscopy time 1.9 minutes Contrast (mls) 50 cc Anesthesia 1 mg Versed, 25 mcg fentanyl. Start 1111, and 1120 Disposition Network Engineer Holding/Recovery I attest to the content of the Intraoperative Record and any orders documented therein. Any exceptions are noted below. [facility] Card Cath Procedure Codes Cardiac Catheterization Procedure 1: Cardiovascular Cath Procedures: 18827 Coronaries Moderate Sedation Procedure 1: Sedation/Anesthesia: 47659 Mod Sedation by the same physician;Init15 Min Child Age 5 & Up (Initial 15 minutes, start time 1111, end time 1120) PG Care Time/CCT Total # of Minutes Spent Total Time Spent with Patient: Total time spent is greater than 50% in coordination of care (as documented) at patient's floor/unit and/or counseling patient:
--- NOTE | 2024-12-05 13:29 | Hospitalist Progress Note ---
Date of Service December 05, 2024 Assessment & Plan (1) Atrial fibrillation with RVR: (2) Acute HFrEF (heart failure with reduced ejection fraction): (3) Hypokalemia: (4) Hypomagnesemia: Plan 73-year-old woman with dysphagia, esophageal thickening, T12 vertebral fracture, idiopathic polyneuropathy, diabetes mellitus type 2, obesity, extrinsic asthma, depression with anxiety, and dyslipidemia. She had presented to the endoscopy suite this morning for routine EGD and colonoscopy, however, she was found to be in atrial fibrillation with RVR, the procedure was not performed, she was sent to the ED for assessment. # New onset atrial fibrillation with RVR/hypertension- Echo - EF 35-40% abnormal septal motion Coronary angiography 12/02 no severe CAD did not need PCI await formal report, cardiomyopathy could be from tachyarrhythmia -continue dilt 240 mg, metoprolol 100 mg, apixaban -rate control much improved # Acute HFrEF -good symptomatic response to diuresis - never had pitting edema but legs are clearly much smaller now with ankle contour. 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 # Asthma Continue Advair Diskus, and albuterol l HFA 2 puffs every 6 hours as needed Not wheezing and doubt asthma playing a role in current dyspnea Usually has just seasonal asthma, "flare" over past two weeks was cardiac related # Diabetes mellitus type 2 - A1c 7.4% Reduced glargine from 20 to 10 units SQ every morning Hold metformin and Mounjaro Placed on Accu-Cheks with NovoLog SSI -BG at goal 12/04 Hyperlipidemia- Continue atorvastatin Depression with anxiety/peripheral neuropathy Continue duloxetine, trazodone, pregabalin and meloxicam GERD- Continue omeprazole/pantoprazole Admission and Anticipated Discharge Date Admission Date: November 30, 2024 Subjective Feeling much better, no cough/wheeze or orthopnea ankles now have curves fatigue after walking two laps - multiple walks yesterday Physical Exam 2 Physical Exam: Last 24h vitals reviewed GEN: looks really good, sitting EOB HEENT: pupils equal, sclerae anicteric, moist MM RESP: normal WOB, mild crackles in bases CV: irreg irreg no mrg ABD: soft/nt/nd +BT : no marquez SKIN: warm and dry, no generalized rashes ankle edema much improved NEURO: AOx person, place, and situation. Face symmetric, speech normal, moves 4 ext spontaneously and equally Results & Data Results & Data Vital Signs (Past 12 Hours) Vital Signs Temp Pulse Resp BP Pulse Ox O2 Del Method O2 Flow Rate 12/05/24 10:56 36.6 C 83 19 128/71 97 Room Air 12/05/24 10:00 Nasal Cannula 2 12/05/24 07:15 36.5 C 92 H 18 132/80 92 Room Air 12/05/24 03:37 36.8 C 93 H 18 110/68 96 Room Air Laboratory Results 11/30/24 10:30 12/05/24 05:07 PG Care Time/CCT Total # of Minutes Spent Total Time Spent with Patient: Total time spent is greater than 50% in coordination of care (as documented) at patient's floor/unit and/or counseling patient: Coding Level of Care Code 94769 SUB INP/OBS CARE 2/35MIN Diagnoses Atrial fibrillation with RVR I48.91 Acute HFrEF (heart failure with reduced ejection fraction) I50.21 Hypokalemia E87.6 Hypomagnesemia E83.42
[2024-12-06 06:58] LABS: Anion Gap 6.0 (3-11); Blood Urea Nitrogen 26.0 mg/dl (6-23); Calcium 9.5 mg/dl (8.6-10.3); Carbon Dioxide 27.0 mmol/L (21-32); Chloride 105.0 mmol/L (98-107); Creatinine Clr Calc Pharmacy 59.2 ml/min; Glucose 151.0 mg/dl (70-99(Fasting)); Magnesium 2.0 mg/dl (1.7-2.4); Potassium 4.3 mmol/L (3.5-5.1); Sodium 138.0 mmol/L (136-145)
[2024-12-06] MEDS: FUROSEMIDE 40 MG TAB PO SCH (08:32)
[2024-12-06 11:22] VITALS: O2SAT 95
--- NOTE | 2024-12-06 12:01 | Discharge Summary ---
Discharge Summary Date of Service December 06, 2024 Principal Dx & Hospital Course #1 = Principal Diagnosis (1) Atrial fibrillation with RVR: (2) Acute HFrEF (heart failure with reduced ejection fraction): (3) Hypokalemia: (4) Hypomagnesemia: Plan 73-year-old woman with dysphagia, esophageal thickening, T12 vertebral fracture, idiopathic polyneuropathy, diabetes mellitus type 2, obesity, extrinsic asthma, depression with anxiety, and dyslipidemia. She had presented to the endoscopy suite this morning for routine EGD and colonoscopy, however, she was found to be in atrial fibrillation with RVR, the procedure was not performed, she was sent to the ED for assessment. Overall she had a lot of improvement this admission. Dr. Payne consulted. Rate control was achieved with b-saundra and diltiazem and improved after diuresis. She had low EF with regoinal abnormality concerning for ischemic CM and had cath that was normal so it may be rate-related cardiomyopathy. She didn't exam particularly volume overloaded (her edema doesn't pit) but tolerated aggressive diuresis with big improvement in dyspnea and lung exam. # New onset atrial fibrillation with RVR/hypertension- Echo - EF 35-40% abnormal septal motion Coronary angiography 12/02 no severe CAD did not need PCI await formal report, cardiomyopathy could be from tachyarrhythmia -continue dilt 240 mg, metoprolol 100 mg, apixaban. On both B-saundra and dilt per Dr. Payne because difficult rate control anticipated. -rate control much improved -f/u cardiology clinic # Acute HFrEF. New diagnosis and suspect chronic, though low EF may reverse -good symptomatic response to diuresis -lasix 40 mg daily and spironolactone started for discharge - please check BMP -continue metoprolol and lisinopril - warrants SNRI but initiation deferred to outpatient setting - may have rapid improvement in EF with rate control. Likewise SGLT2 deferred - already on GLP-1 and other diabetic meds, consider tra nsition depending on EF -HF clinic referral # Electrolyte disturbances- Hypokalemia and hypomagnesemia related to bowel prep CREW TRAINER and were replaced # Asthma Continue Advair Diskus, and albuterol l HFA 2 puffs every 6 hours as needed Not wheezing and doubt asthma playing a role in current dyspnea Usually has just seasonal asthma, "flare" over past two weeks was cardiac related # Diabetes mellitus type 2 - A1c 7.4% Resume glargine metformin and Joelunpericoro DM educator consulted Hyperlipidemia- Continue atorvastatin Depression with anxiety/peripheral neuropathy Continue duloxetine, trazodone, pregabalin and meloxicam GERD- Continue omeprazole/pantoprazole Discussed dc plan of care with vending machine assembler today. Notes For Next Care Provider Adjust diuretics, BMP adding entresto and SGLT-2 deferred to outpatient Admission HPI Per Admitting Provider The patient is a 73-year-old female with a past medical history including dysphagia, esophageal thickening, T12 vertebral fracture, idiopathic polyneuropathy, diabetes mellitus type 2, obesity, extrinsic asthma, depression with anxiety, and dyslipidemia. She had presented to the endoscopy suite this morning for routine EGD and colonoscopy, however, she was found to be in atrial fibrillation with RVR, the procedure was not performed, she was sent to the ED for assessment. In the ED, EKG showed atrial fibrillation with RVR at a rate of 121. Potassium was 3.1, magnesium is 1.6. From the ED she received the following: Normal saline 1 L bolus, diltiazem 10 mg IV, magnesium sulfate 1 g IV, Lopressor 5 mg IV, and Klor-Con 40 mill equivalents p.o. Discharge Exam Last 24h vitals reviewed GEN: in chair, walking hw HEENT: pupils equal, sclerae anicteric, moist MM RESP: normal WOB, CTAB CV: irreg irreg no mrg ABD: soft/nt/nd +BT : no marquez SKIN: warm and dry, no generalized rashes ankle edema much improved - has ankle contours now NEURO: AOx person, place, and situation. Face symmetric, speech normal, moves 4 ext spontaneously and equally Discharge Plan Discharge Items Patient Disposition: Home - Self-Care Reason For Visit: NEW ONSET ATRIAL FIB WITH RVR Discharge Diagnosis: New onset afib with rapid ventricular rate, acute HFrEF, nonischemic cardiomyopathy Condition on Discharge: Good Activity: Per Instructions section Non-emergency contact: Primary Care Provider and Ip Counsel Call non-emergency contact if: you have any medication questions and your symptoms worsen Follow-up/Referrals: Declan Payne MD [Physician] - 12/31/24 3:30 pm (Cardio follow up scheduled on 12/31/24 at 3:30 with Willie Ibarra At [facility] location) Pete Hall MD [Primary Care Provider] - 12/09/24 4:00 pm (Dr. Hall) Lynn Bullard PA-C [Physician [employer]] - Diet: Carb Consistent or DM2 and Low Sodium (2gm) Addtl Attending Provider Instructions: You were treated for atrial fibrillation - a common heart arrhythmia that causes irregular heart beat that can go too fast. It can cause symptoms like shortness of breath and palpitations, and increases your risk of stroke. We are using two new medications - metoprolol and diltiazem - to control your heart rate. -you are tolerating these well, but call your doctor if you are having low blood pressure, lightheadedness or low heart rate (under 55) We prescribed Eliquis (apixaban) - this is a blood thinner that will significantly reduce your risk of stroke While you are on a blood thinner you should not take NSAID type medication - this includes meloxicam (STOP), motrin/ibuprofen or naproxen/aleve. Tylenol (acetaminophen) is safe for your stomach while on blood thinners, use as directed. We discussed the risks and benefits of anticoagulation, including the risks of gastrointestinal bleeding - seek medical attention if you have black/tarry or bloody stool There is also a very small but real risk of intracranial hemorrhage - related to head trauma or bleeding-type stroke, that can be life threatening. Call 911 if you have altered mental status or symptoms of stroke (weakness or numbness of face/arm/leg, trouble speaking or understanding, trouble with walking/balance Cardiologists recommend blood thinner in your case because the risk of stroke is much higher than the risk of severe bleeding Follow up with Dr. Payne You also have some weakening of your heart muscle. You had a coronary angiogram "heart cath" that showed your coronary arteries are open, so this is not the cause. Uncontrolled afib can cause heart muscle weakness on its own, and if this is the cause your heart muscle can strengthen over time with the right medications. The combination of the uncontrolled afib and weakened heart muscle caused a condition called "heart failure" This is when you're heart isn't pumping efficiently or strongly enough and fluid builds up on lungs and other parts of the body (feet and ankles) This is why you've been short of breath and wheezy lately -metoprolol will help strengthen your heart over time -we started diuretics called furosemide (lasix) and spironolactone to control fluid buildup and balance potassium Follow up in the heart failure clinic It was a pleasure taking care of you in the hospital, Staci Fournier MD Addtl Dump Worker Provider Instructions: Call your Primary Care doctor if any of the following symptoms or problems start or get worse: * Shortness of breath or difficulty breathing * Wake up at night short of breath * Chest pain * Cough * Swelling of your hands, feet, or legs * More fatigued or tired with your normal activity * Palpitations - sudden fast heart beats WEIGHT * Weigh yourself every morning after using the bathroom. * Use the same scale. * Wear the same amount of clothing. * Write your weight down on a chart. * Call your Primary Care doctor if you gain more than 2-3 pounds in 1-2 days. MEDICATIONS * Use this discharge instruction sheet for medication instructions. * Take your medications at the time your doctor ordered. * Do not skip a dose of your medicines. * If you miss a dose of medicine, take it as soon as possible, but DO NOT DOUBLE A DOSE. * Read your medicine information when you get home. * Know all of the side effects of your medicine. If in doubt, ask your pharmacist * Call your Primary Care doctor's office if you have any side effects. * Be sure all of your doctors know what medicine and herbs you take (including cold, flu, and herbal medicine). Take the following with you to your follow-up doctor appointments: * Weight Chart * Medication List * List of questions Do not drink excessive alcohol, beer or wine. Pending Studies at Discharge: No Stand-Alone Forms: My [facility] [employer], Smoking Cessation Medications and DC Order Prescriptions: New furosemide 40 mg Tablet 40 mg PO QAM Qty: 30 0RF metoprolol succinate 50 mg Tablet Extended Release 24 Hr 100 mg PO QAM Qty: 30 0RF diltiazem HCl 240 mg Capsule,Extended Release 24hr 240 mg PO QAM Qty: 30 0RF Eliquis 5 mg Tablet 5 mg PO BID Qty: 60 0RF spironolactone 25 mg tablet 25 mg PO DAILY Qty: 30 0RF Continued (DME) blood sugar diagnostic [OneTouch Ultra Blue Test Strip] Strip See Rx Instructions .ROUTE .MEDSUPPLY Qty: 400 3RF Rx Instructions: Use one strip to test blood sugar four times daily (DME) FreeStyle Inga 14 Day Sensor Kit See Rx Instructions .ROUTE .MEDSUPPLY Qty: 1 0RF Rx Instructions: As directed (DME) FreeStyle Inga 14 Day Kersey Misc See Rx Instructions .ROUTE .MEDSUPPLY Qty: 1 0RF Rx Instructions: As directed diclofenac sodium 1 % gel 1 g topical ONCE PRN (Reason: foot pain) Qty: 100 5RF Rx Instructions: Apply sparingly to feet and toes as needed (DME) pen needle, diabetic [BD Ultra-Fine Micro Pen Needle] 32 gauge x 1/4" needle See Rx Instructions .ROUTE .MEDSUPPLY Qty: 200 5RF Rx Instructions: USE TO INJECT INSULIN AND VICTOZA 4 X DAILY buspirone 5 mg tablet 5 mg PO BID PRN (Reason: anxiety) Qty: 60 1RF lisinopril 20 mg tablet 20 mg PO BID Qty: 180 3RF fluticasone propionate [Allergy Relief (fluticasone)] 50 mcg/actuation spray,suspension 1 spray INTNAS HS Qty: 47.4 1RF Rx Instructions: administer into each nostril pregabalin 75 mg capsule 75 mg PO BID Qty: 180 1RF albuterol sulfate 90 mcg/actuation aero powdr breath act w/sensor 2 inh INHALATION Q6H PRN (Reason: Shortness Of Breath) Qty: 1 3RF Mounjaro 5 mg/0.5 mL pen injector 5 mg subcut WK Qty: 2 2RF Patient Comments: takes on Mondays last dose 11/22/24 Rx Instructions: Replaces Ozempic metformin 500 mg tablet extended release 24 hr 500 mg PO BIDM Qty: 180 3RF peg 3350-electrolytes [Golytely] 236-22.74-6.74 -5.86 gram recon soln 240 ml PO Q10M Qty: 4000 0RF Rx Instructions: Take per split dose instructions atorvastatin [Lipitor] 10 mg tablet 10 mg PO HS Qty: 90 1RF trazodone 50 mg tablet 50 mg PO HS PRN (Reason: Sleep) Qty: 30 5RF PreserVision AREDS [id number],[id number] capsule 1 cap PO HS fluticasone propion-salmeterol [Advair Diskus] 500-50 mcg/dose blister with device 1 inh inhalation BID Qty: 60 0RF ascorbic acid (vitamin C) [Vitamin C] 1,000 mg Tablet 500 mg PO QAM cholecalciferol (vitamin D3) [Vitamin D3] 1,000 unit Capsule 2,000 unit PO QAM Centrum Silver 0.4-300-250 mg-mcg-mcg Tablet 1 tab PO QAM omega 4-eun-poz-fish oil [Fish Oil] 1,000 mg (120 mg-180 mg) capsule 1 cap PO BID calcium polycarbophil [Fiber-Lax] 625 mg tablet 1,250 mg PO QAM cyanocobalamin (vitamin B-12) [Vitamin B-12] 1,000 mcg tablet 1,000 mcg PO QAM fexofenadine-pseudoephedrine [Lisa-D 24 Hour] 180-240 mg Tablet Extended Release 24 Hr 1 tab PO HS calcium carb-mag ox-zinc gluc 333-133-5 mg Tablet 1 tab PO DAILY Hair, Skin and Nails-Argan Oil 66.7-1,666.7 mcg Capsule 1 cap PO DAILY nystatin 100,000 unit/gram cream 1 applic topical BID PRN (Reason: Rash) omeprazole 20 mg capsule,delayed release(DR/EC) 20 mg PO HS insulin glargine [Lantus Solostar U-100 Insulin] 100 unit/mL (3 mL) insulin pen 20 unit subcut QAM Patient Comments: took 1/2 dose- 10 units this am. BSG check is 143 at 0910. Rx Instructions: as directed duloxetine 60 mg capsule,delayed release(DR/EC) 60 mg PO HS Discontinued hydrochlorothiazide 25 mg tablet 25 mg PO QAM Qty: 90 1RF ibuprofen 200 mg capsule 200 mg PO Q6H PRN (Reason: Fever Or Pain) potassium chloride 10 mEq capsule, extended release 10 meq PO QAM meloxicam 7.5 mg tablet 7.5 mg PO HS Discharge Orders: Discharge Order- CHF (Routine); Ordered 12/06/24 Ordered By: Staci Diego/Other Patient Handouts: High Blood Sugar (Hyperglycemia), Hypoglycemia (Low Blood Sugar), Managing Type 2 Diabetes, Healthy Meals for Diabetes, Understanding Carbohydrates, Eating Out When You Have Diabetes, Diabetes: Keeping Feet Healthy, Diabetes: Meal Planning Admission Data Admit Date/Time: 11/30/24 13:58 Attending Provider: Staci Fournier Admit Provider: Huber Glaser Primary Care Provider: Pete Hall Other Providers: Huber Glaser; Declan Payne; Lynn Bullard Other Interventions: Discharge Summary Assessment (RN) Last Done: 12/06/24 16:09 Hospital Stay Data Consultations 11/30/24 13:04 ED Decision to Admit Stat 11/30/24 13:50 Consult Cardiology Routine 12/05/24 13:36 [facility] CHF Program Referral Routine Procedures Performed Operation Date: 12/02/24 11:00 Actual Procedures p Cineradiography w/Routine Exam - Salinas Orozco MD, PhD p Cath, Coronaries ONLY (no LV) - Salinas Orozco MD, PhD Diagnostic Imagining Performed 12/02/24 10:04 CL Cath Imgs for PACS use only Routine Pending Results Patient Have Any Pending Studies at Discharge: No Discharge Instructions Given to Patient (Per Discharging Provider) You were treated for atrial fibrillation - a common heart arrhythmia that causes irregular heart beat that can go too fast. It can cause symptoms like shortness of breath and palpitations, and increases your risk of stroke. We are using two new medications - metoprolol and diltiazem - to control your heart rate. -you are tolerating these well, but call your doctor if you are having low blood pressure, lightheadedness or low heart rate (under 55) We prescribed Eliquis (apixaban) - this is a blood thinner that will significantly reduce your risk of stroke While you are on a blood thinner you should not take NSAID type medication - this includes meloxicam (STOP), motrin/ibuprofen or naproxen/aleve. Tylenol (acetaminophen) is safe for your stomach while on blood thinners, use as directed. We discussed the risks and benefits of anticoagulation, including the risks of gastrointestinal bleeding - seek medical attention if you have black/tarry or bloody stool There is also a very small but real risk of intracranial hemorrhage - related to head trauma or bleeding-type stroke, that can be life threatening. Call 911 if you have altered mental status or symptoms of stroke (weakness or numbness of face/arm/leg, trouble speaking or understanding, trouble with walking/balance Cardiologists recommend blood thinner in your case because the risk of stroke is much higher than the risk of severe bleeding Follow up with Dr. Payne You also have some weakening of your heart muscle. You had a coronary angiogram "heart cath" that showed your coronary arteries are open, so this is not the cause. Uncontrolled afib can cause heart muscle weakness on its own, and if this is the cause your heart muscle can strengthen over time with the right medications. The combination of the uncontrolled afib and weakened heart muscle caused a condition called "heart failure" This is when you're heart isn't pumping efficiently or strongly enough and fluid builds up on lungs and other parts of the body (feet and ankles) This is why you've been short of breath and wheezy lately -metoprolol will help strengthen your heart over time -we started diuretics called furosemide (lasix) and spironolactone to control fluid buildup and balance potassium Follow up in the heart failure clinic It was a pleasure taking care of you in the hospital, Staci Fournier MD Total Time Total Time Spent Total Time Spent (In Minutes): I personally spent: 40 minutes today on clinical care activities including: reviewing chart notes and vital signs reviewing labs reviewing studies - final cath report discussion with public relations consultant(s) - vending machine assembler examining and counseling the patient writing orders writing prescriptions, discharge instructions documentation Coding Level of Care Code 74937 INP/OBS DISCH >30 MIN Diagnoses Atrial fibrillation with RVR I48.91 Acute HFrEF (heart failure with reduced ejection fraction) I50.21 Hypokalemia E87.6 Hypomagnesemia E83.42
[2024-12-06 15:21] VITALS: PULSE 75; RESP 19; TEMP 97.9
[2024-12-06 16:11] VITALS: BP 113/63
== END 2024-12-06 17:16 | disposition home or self-care (01) | DRG 286 ==
LOC: ED 10:14 → 4W 13:58 → SUATTDRO 13:58 → 4W 14:32
PROC: CLB.CCO (2024-12-02 11:00)

== ENCOUNTER 2024-12-15 13:14 | Observation (INO) ==
--- NOTE | 2024-12-15 14:09 | Emergency Department Note ---
Impression & Plan Dizziness, Acute dehydration, Acute hypotension ED Provider Note HISTORY OF PRESENT ILLNESS: Patient is a 73-year-old female presenting with lightheadedness and dizziness. Patient reports that last night she had some acid reflux sensation and started having diarrhea. States that she had to sleep sitting upright secondary to her symptoms. Reports that this morning she has been unable to get up and walk around secondary to feeling very dizzy and lightheaded like she is going to pass out. Patient reports she is currently taking Lasix 20 mg twice daily. States that she was just recently admitted for CHF exacerbation. Reports that her weight used to be at 214 pounds and is now down to 197. Reports that over the last few days her blood pressure has slowly been trending down, and her blood pressure this morning was 103 systolic. Denies any chest pain. Denies any significant shortness of breath. Denies any significant lower extremity edema. Denies any abdominal pain. Does report that her granddaughter had flulike symptoms and she was around her the other day, but states that her granddaughter tested negative for flu. ROS: as above PHYSICAL EXAM: Constitutional: Patient appears in no acute distress. HENT: Head: Normocephalic and atraumatic. Eyes: EOMI, PERRL Mouth/Throat: Mucous membranes moist. Neck: Trachea midline. Neck supple. Cardiovascular: Irregular rhythm. No murmurs, rubs or gallops. Intact distal pulses. Pulmonary/Chest: No respiratory distress. Breath sounds clear and equal bilaterally. No wheezes or rales. Abdominal: Abdomen soft, no tenderness, rebound or guarding. Musculoskeletal: No edema, tenderness or deformity noted. Skin: Warm and dry. No rash, erythema, pallor or cyanosis Psychiatric: Appropriate mood and affect for situation. Neurological: Alert and keenly responsive. CN II-XII grossly intact, moving all extremities equally and fully. MDM: - Vitals signs showed hypotension - History obtained via patient. History as above. - Chronic conditions affecting care: HFrEF; Afib; cardiomyopathy; DM-2; HTN; HLD; depression/anxiety - Differential diagnoses include, but are not limited to: sepsis; acute dehydration; electrolyte abnormality; HOSEA; CHF; pneumonia; CVA; intracranial hemorrhage - Order placed for continuous cardiac monitoring. At this time, monitor showed rate of 81 bpm with irregular rhythm, per my interpretation. - External medical records reviewed. Discharge summary dated 12/06/2024 was reviewed. Patient was admitted at that time for A-fib with RVR and acute heart failure with a reduced ejection fraction. She was noted to be in new onset A- fib and an echo showed an EF of 35 to 40%. - EKG image interpreted by myself showed atrial fibrillation. Rate 88 bpm. QT 360. No acute ischemic changes. - Laboratory workup interpreted by myself showed normal WBC; elevated INR (1.2); elevated lactate (2.4); hypercalcemia (ca 10.8); slightly elevated creatinine; normal troponin; normal BNP - CXR image reviewed by myself was negative for pneumonia, per my interpretation. - UA negative for infection - Viral respiratory panel negative - CT head wo contrast negative for acute pathology - Patient given 500 cc NS in ER. - Repeat lactate improved to 2.0 after 500 cc NS. Blood pressure also improved. - On reassessment, patient still complaining of some lightheadedness and dizziness. She does appear to be over diuresed on assessment and was given another 500 cc of fluid. Will discuss case with hospitalist service. - Discussion was had with caseworker about patient's case and need for admission - Hospitalist consulted for admission - Patient admitted to [facility] hospitalist service for further evaluation and management. ASSESSMENT AND PLAN: Diagnosis: Dizziness; acute dehydration; acute hypotension Plan: admit Past Med/Surg History Problem List (Updated 12/15/24 @ 18:01 by Betty Laguerre MD) Acute hypotension (Acute) Acute dehydration (Acute) Dizziness (Acute) Acute HFrEF (heart failure with reduced ejection fraction) Anticoagulant long-term use Cardiomyopathy Atrial fibrillation, new onset (Acute) Dysphagia Encounter for pre-operative examination Abnormal CT of the abdomen Back pain of thoracolumbar region Esophageal thickening T12 vertebral fracture (Acute ~07/18/24) Minimally displaced fractures of an anterior inferior T12 vertebral body osteophyte and anterior lateral right L1 superior vertebral body endplate. Compression fx, lumbar spine (Acute) Minimally displaced fractures of an anterior inferior T12 vertebral body osteophyte and anterior lateral right L1 superior vertebral body endplate. Nondisplaced fracture of fifth metatarsal bone (Acute ~11/20/22) Date of injury 11/20/22. Nondisplaced 4th and 5th left metatarsal fracture that are healing appropriately. 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 Lumbosacral radiculopathy Idiopathic polyneuropathy History of colon polyps Family history of colon cancer Encounter for pre-operative examination Type 2 diabetes mellitus (Acute) IDDM Obesity (Acute) Ganglion cyst (Acute) Extrinsic asthma (Acute) Essential hypertension (Acute) Dyslipidemia (Acute) Diabetic peripheral neuropathy (Acute) Depression with anxiety (Acute) Anxiety (Acute) Medical History Family hx of colon cancer Arthritis Hx of colonic polyp Snores T12 vertebral fracture (07/2024) Type 2 diabetes mellitus Chronic sinusitis Endometriosis Depression Anxiety Migraine Hypertension Hyperlipidemia Asthma Surgical History H/O excision of ganglion cyst S/P ACL repair H/O bladder repair surgery History of appendectomy History of colonoscopy History of excision of pilonidal cyst History of cataract surgery History of total abdominal hysterectomy Hx of detached retina repair Hx of cholecystectomy H/O lumpectomy Family History Grandfather Heart disease Myocardial infarction Daughter Bipolar disorder Asthma Mother Colon cancer Skin cancer (melanoma) Breast cancer Grandmother Diabetes Heart disease Hypertension Father COPD (chronic obstructive pulmonary disease) Son No problems noted. 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 [employer] How many Children do You have: 2 How many Children do You have Comment: Daughter, son Feels Safe at Home: Yes Childhood Exposure to Second-Hand Smoke: Yes Diet: regular caffeine: Yes during the past year weight has: increased > 10 lbs Dental Care, Regularly: Yes Physical Activity Frequency: 3-4 Times per Week Seatbelt Use: always Sunscreen Use: Yes Do you think of yourself as: straight/heterosexual Gender Identity: Female Assistive Devices: Walker Allergies Allergies Allergy/AdvReac Type Severity Reaction Status Date / Time Sulfa (Sulfonamide Allergy Severe Rash Verified 12/15/24 16:51 Antibiotics) sulfite Allergy Severe varies - Verified 12/15/24 16:51 migraines,diarrhea,throat swelling amoxicillin Allergy Unknown RASH NAUSEA Verified 12/15/24 16:51 doxycycline AdvReac Intermediate Vomiting Verified 12/15/24 16:51 Home Meds Home Medications Medication Instructions Recorded Confirmed ascorbic acid (vitamin C) 1,000 mg 500 mg PO QAM 09/21/18 12/15/24 tablet (Vitamin C) cholecalciferol (vitamin D3) 25 2,000 unit PO QAM 09/21/18 12/15/24 mcg (1,000 unit) capsule (Vitamin D3) sxkubimo-psi-fmmhc acid 0.4 1 tab PO QAM 09/21/18 12/15/24 mg-lycopene 300 mcg-lutein 250 mcg tablet (Centrum Silver) omega 2-tya-sgc-fish oil 1,000 mg 1 cap PO BID 06/11/19 12/15/24 (120 mg-180 mg) capsule (Fish Oil) fexofenadine-pseudoephedrine ER 1 tab PO HS 11/25/19 12/15/24 180 mg-240 mg tablet,ext.release 24 hr (Lisa-D 24 Hour) vitamins A,C,H-xaam-cfyian 4,296 1 cap PO HS 09/18/21 12/15/24 mcg-226 mg-90 mg capsule (PreserVision AREDS) calcium polycarbophil 625 mg 1,250 mg PO QAM 12/04/22 12/15/24 tablet (Fiber-Lax) cyanocobalamin (vitamin B-12) 1,000 mcg PO QAM 12/04/22 12/15/24 1,000 mcg tablet (Vitamin B-12) duloxetine 60 mg capsule,delayed 60 mg PO 11/23/24 12/15/24 release insulin glargine 100 unit/mL (3 20 unit subcut [facility] 11/23/24 12/15/24 mL) subcutaneous pen (Lantus Solostar U-100 Insulin) nystatin 100,000 unit/gram topical 1 applic topical BID PRN Rash 11/23/24 12/15/24 cream omeprazole 20 mg capsule,delayed 20 mg PO HS 11/23/24 12/15/24 release Brain Health 1 dose PO DAILY 12/15/24 12/15/24 Hair, Skin and Nails-Argan Oil 1 cap PO DAILY 12/15/24 12/15/24 apixaban 2.5 mg tablet (Eliquis) 2.5 mg PO BID 12/15/24 12/15/24 furosemide 40 mg tablet 40 mg PO QAM 12/15/24 12/15/24 Previous Rx's Medication Instructions Recorded trazodone 50 mg tablet 50 mg PO HS PRN Sleep #30 tabs 06/11/19 blood sugar diagnostic (OneTouch #400 ea 09/27/19 Ultra Blue Test Strip) flash glucose scanning reader #1 ea 07/03/20 ([employer] Inga 14 Day [place]) flash glucose sensor ([employer] #1 ea 07/03/20 Inga 14 Day Sensor kit) diclofenac sodium 1 % topical gel 1 g topical ONCE PRN foot pain 02/19/22 #100 grams pen needle, diabetic 32 gauge x #200 ea 05/27/22 1/4" (BD Ultra-Fine Micro Pen Needle) fluticasone 500 mcg-salmeterol 50 1 inh inhalation BID #60 ea 03/04/23 mcg/dose blistr powdr for inhalation (Advair Diskus) buspirone 5 mg tablet 5 mg PO BID PRN anxiety #60 tabs 01/19/24 lisinopril 20 mg tablet 20 mg PO BID #180 tabs 07/23/24 fluticasone propionate 50 1 spray intranasal HS #47.4 mL 08/04/24 mcg/actuation nasal spray,suspension (Allergy Relief (fluticasone)) pregabalin 75 mg capsule 75 mg PO BID #180 caps 10/13/24 albuterol sulfate 90 mcg/actuation 2 inh inhalation Q6H PRN Shortness 10/20/24 breath activated powder Of Breath #1 ea inhaler,sensor Mounjaro 5 mg/0.5 mL subcutaneous 5 mg (0.5 mL) subcut WK #2 mL 11/03/24 pen injector (tirzepatide) metformin 500 mg tablet,extended 500 mg PO BIDM #180 tabs 11/08/24 release 24 hr atorvastatin 10 mg tablet (Lipitor) 10 mg PO HS #90 tabs 11/19/24 diltiazem HCl 240 mg 240 mg PO QAM #30 caps 12/06/24 capsule,extended release 24 hr spironolactone 25 mg tablet 25 mg PO DAILY #30 tabs 12/06/24 metoprolol succinate 100 mg 100 mg PO QAM #30 tabs 12/10/24 tablet,extended release 24 hr Results & Data (ED) Vital Signs Vital Signs - 24 hr 12/15/24 13:49 12/15/24 14:17 12/15/24 14:17 Temperature 36.0 C L Temperature Source Skin Pulse Rate 68 100 H Pulse Rate [Apical] 92 H Respiratory Rate 20 13 13 Respiratory Effort / Characteristics Non-Labored Spontaneous Non-Labored Respiratory Depth Normal Normal Respiratory Pattern Regular Blood Pressure 80/50 L Blood Pressure [Left Arm] 96/53 L Blood Pressure Mean 60 Blood Pressure Mean [Left Arm] 67 Pulse Oximetry 94 95 95 Oxygen Delivery Method Room Air Room Air Room Air Sepsis Recent Fever Within 48 Hours No Sepsis New/Unexplained Change in Mental Status N/A Sepsis Action Taken by Nursing No Action Required 12/15/24 14:27 12/15/24 16:27 Temperature Temperature Source Pulse Rate 86 Pulse Rate [Apical] 81 Respiratory Rate 15 Respiratory Effort / Characteristics Respiratory Depth Respiratory Pattern Blood Pressure Blood Pressure [Left Arm] 106/61 Blood Pressure Mean Blood Pressure Mean [Left Arm] 76 Pulse Oximetry 95 Oxygen Delivery Method Room Air Sepsis Recent Fever Within 48 Hours Sepsis New/Unexplained Change in Mental Status Sepsis Action Taken by Nursing Laboratory Data 12/15/24 14:00 12/15/24 14:00 Lab Results 12/15/24 12/15/24 12/15/24 Range/Units 14:00 15:25 16:42 WBC 7.89 (4.8-10.8) K/ul RBC 4.66 (4.20-5.40) M/uL Hgb 14.1 (12.0-16.0) g/dl Hct 41.8 (37.0-47.0) % MCV 89.7 (80.0-100.0) fL MCH 30.3 (25.0-34.0) pg MCHC 33.7 (32.0-36.0) g/dL RDW Std Deviation 45.9 (36.4-46.3) fL RDW Coeff of Mic 14.0 (11.5-14.5) % Plt Count 324 (130-400) K/uL MPV 10.0 (9.4-12.4) fL Immature Gran % (Auto) 0.3 % Neut % (Auto) 58.5 % Lymph % (Auto) 31.1 % [place] % (Auto) 6.3 % Eos % (Auto) 3.2 % Baso % (Auto) 0.6 % Neut # (Auto) 4.62 (1.40-6.50) K/uL Lymph # (Auto) 2.45 (1.20-3.40) K/uL [place] # (Auto) 0.50 (0.11-0.59) K/uL Eos # (Auto) 0.25 (0.00-0.50) K/uL Baso # (Auto) 0.05 (0.00-0.20) K/uL Immature Gran # (Auto) 0.02 (0.01-0.20) K/uL PT Cancelled 12.4 H INR Cancelled 1.2 H Sodium 132 L (136-145) mmol/L Potassium 4.6 (3.5-5.1) mmol/L Chloride 98 (98-107) mmol/L Carbon Dioxide 24 (21-32) mmol/L Anion Gap 10 (3-11) BUN 48 H (6-23) mg/dl Creatinine 1.15 (0.6-1.2) mg/dl Est Cr Clr Drug Dosing 47.5 ml/min eGFR 49.68 BUN/Creatinine Ratio 41.7 H (10-20) Glucose 249 H (70-99(Fasting)) mg/dl Lactate 2.4 H* 2.0 (0.4-2.0) mmol/L Calcium 10.8 H (8.6-10.3) mg/dl Magnesium 1.7 (1.7-2.4) mg/dl Total Bilirubin 0.6 (0.2-1.0) mg/dl AST 14 (13-39) U/L ALT 11 (7-52) U/L Alkaline Phosphatase 108 H (34-104) U/L Troponin I High Sens 4.7 (0-14) pg/ml B-Natriuretic Peptide 71 (0-100) pg/ml Total Protein 7.9 (6.0-8.3) gm/dl Albumin 4.2 (3.4-5.0) gm/dl Globulin 3.7 (2.5-4.0) gm/dl Albumin/Globulin Ratio 1.1 (0.9-2) Urine Color Urine Appearance (Clear) Urine pH (4.5-7.5) Ur Specific [place] (1.000-1.030) Urine Protein (Negative) Urine Glucose (UA) (Negative) Urine Ketones (Negative) Urine Blood (Negative) Urine Nitrite (Negative) Urine Bilirubin (Negative) Urine Urobilinogen (Negative) Ur Leukocyte Esterase (Negative) Urine WBC (Auto) (0-5) /hpf Urine RBC (Auto) (0-2) /hpf U Hyaline Cast (Auto) (0-2) /lpf U Epithel Cells (Auto) (0-2) /hpf Urine Bacteria (Auto) (None Seen) Urine Comment Adenovirus (PCR) Not Detected (NotDetected) B. pertussis DNA (PCR) Not Detected (NotDetected) B.parapertussis DNA PCR Not Detected (NotDetected) C. pneumoniae DNA (PCR) Not Detected (NotDetected) Coronavirus OC43 (PCR) Not Detected (NotDetected) Coronavirus HKU1 (PCR) Not Detected (NotDetected) Coronavirus 229E (PCR) Not Detected (NotDetected) SARS-CoV-2 (PCR) Not Detected (NotDetected) Coronavirus NL63 (PCR) Not Detected (NotDetected) Human Metapneumovir PCR Not Detected (NotDetected) Influenza Type A (PCR) Not Detected (NotDetected) Influenza Type B (PCR) Not Detected (NotDetected) M. pneumoniae (PCR) Not Detected (NotDetected) Parainfluenza 1 (PCR) Not Detected (NotDetected) Parainfluenza 2 (PCR) Not Detected (NotDetected) Parainfluenza 3 (PCR) Not Detected (NotDetected) Parainfluenza 4 (PCR) Not Detected (NotDetected) RSV (PCR) Not Detected (NotDetected) Entero/Rhino (PCR) Not Detected (NotDetected) 12/15/24 Range/Units Unknown WBC (4.8-10.8) K/ul RBC (4.20-5.40) M/uL Hgb (12.0-16.0) g/dl Hct (37.0-47.0) % MCV (80.0-100.0) fL MCH (25.0-34.0) pg MCHC (32.0-36.0) g/dL RDW Std Deviation (36.4-46.3) fL RDW Coeff of Mic (11.5-14.5) % Plt Count (130-400) K/uL MPV (9.4-12.4) fL Immature Gran % (Auto) % Neut % (Auto) % Lymph % (Auto) % [place] % (Auto) % Eos % (Auto) % Baso % (Auto) % Neut # (Auto) (1.40-6.50) K/uL Lymph # (Auto) (1.20-3.40) K/uL [place] # (Auto) (0.11-0.59) K/uL Eos # (Auto) (0.00-0.50) K/uL Baso # (Auto) (0.00-0.20) K/uL Immature Gran # (Auto) (0.01-0.20) K/uL PT INR Sodium (136-145) mmol/L Potassium (3.5-5.1) mmol/L Chloride (98-107) mmol/L Carbon Dioxide (21-32) mmol/L Anion Gap (3-11) BUN (6-23) mg/dl Creatinine (0.6-1.2) mg/dl Est Cr Clr Drug Dosing ml/min eGFR BUN/Creatinine Ratio (10-20) Glucose (70-99(Fasting)) mg/dl Lactate (0.4-2.0) mmol/L Calcium (8.6-10.3) mg/dl Magnesium (1.7-2.4) mg/dl Total Bilirubin (0.2-1.0) mg/dl AST (13-39) U/L ALT (7-52) U/L Alkaline Phosphatase (34-104) U/L Troponin I High Sens (0-14) pg/ml B-Natriuretic Peptide (0-100) pg/ml Total Protein (6.0-8.3) gm/dl Albumin (3.4-5.0) gm/dl Globulin (2.5-4.0) gm/dl Albumin/Globulin Ratio (0.9-2) Urine Color Yellow Urine Appearance Clear (Clear) Urine pH 6.0 (4.5-7.5) Ur Specific [place] 1.007 (1.000-1.030) Urine Protein Negative (Negative) Urine Glucose (UA) Negative (Negative) Urine Ketones Negative (Negative) Urine Blood Negative (Negative) Urine Nitrite Negative (Negative) Urine Bilirubin Negative (Negative) Urine Urobilinogen Negative (Negative) Ur Leukocyte Esterase 1+ H (Negative) Urine WBC (Auto) 0-5 (0-5) /hpf Urine RBC (Auto) 0-2 (0-2) /hpf U Hyaline Cast (Auto) 0-2 (0-2) /lpf U Epithel Cells (Auto) 0-2 (0-2) /hpf Urine Bacteria (Auto) None Seen (None Seen) Urine Comment Adenovirus (PCR) (NotDetected) B. pertussis DNA (PCR) (NotDetected) B.parapertussis DNA PCR (NotDetected) C. pneumoniae DNA (PCR) (NotDetected) Coronavirus OC43 (PCR) (NotDetected) Coronavirus HKU1 (PCR) (NotDetected) Coronavirus 229E (PCR) (NotDetected) SARS-CoV-2 (PCR) (NotDetected) Coronavirus NL63 (PCR) (NotDetected) Human Metapneumovir PCR (NotDetected) Influenza Type A (PCR) (NotDetected) Influenza Type B (PCR) (NotDetected) M. pneumoniae (PCR) (NotDetected) Parainfluenza 1 (PCR) (NotDetected) Parainfluenza 2 (PCR) (NotDetected) Parainfluenza 3 (PCR) (NotDetected) Parainfluenza 4 (PCR) (NotDetected) RSV (PCR) (NotDetected) Entero/Rhino (PCR) (NotDetected) Administered Medications Discontinued Medications Sodium Chloride (Nss) 500 mls @ 999 mls/hr IV .Q31M ONE Stop: 12/15/24 14:58 Last Infusion: 12/15/24 15:49 Dose: Infused Documented By: mimi Admin: 12/15/24 14:47 Dose: 999 mls/hr Documented By: mimi Sodium Chloride (Nss) 500 mls @ 999 mls/hr IV .Q31M ONE Stop: 12/15/24 17:47 Last Admin: 12/15/24 17:53 Dose: 999 mls/hr Documented By: EMMANUEL Imaging Data Radiologist's Impression: Chest X-Ray 12/15/24 14:06 XR chest 1V portable HISTORY: 73 years-old Female Dyspnea COMPARISON: 11/30/2024 TECHNIQUE: AP view of the chest FINDINGS: Cardiomediastinal and hilar silhouettes are within normal limits. No pneumothorax, pleural effusion, airspace consolidation or pulmonary edema. Spondylotic spurring of the spine. IMPRESSION: No acute process. ACT 112: Negative or not required by law. The above report was generated using voice recognition software. It may contain grammatical, syntax or spelling errors. Electronically signed by: Yoni Chavez M.D. 12/15/2024 3:[address] 12/15/24 16:49 Clinical History: Dizziness Technique: Axial computed tomography images were obtained of the brain without intravenous contrast. Comparison is made to the prior CT dated 07/18/2024 Findings: There is diffuse cerebral atrophy, within expected limits for the patient's age. Areas of decreased attenuation are seen within the periventricular white matter, likely representing chronic small vessel ischemic disease. There is no definite sign of acute or old infarction. No intracranial hemorrhage is evident. No definite mass lesion is seen on this noncontrast examination. There is no midline shift or other form of herniation. No hydrocephalus is seen. No fracture is identified. The orbits and the visualized paranasal sinuses appear unremarkable. The mastoid air cells appear clear. Impression: 1. Cerebral atrophy and chronic small vessel ischemic disease 2. Otherwise unremarkable noncontrast CT of the brain Electronically signed by Breezy Borden 12-15-2024 5:57 PM Discharge Plan Visit Data Chief Complaint: Illness Stated Complaint: REF BY DOC, DIZZINESS, DIARRHEA, ACID REFLUX ED Provider: Betty Laguerre Discharge Problem: Dizziness, Acute dehydration, Acute hypotension Condition: Fair Forms Stand Alone Forms: My [facility] Prescriptions Prescriptions: No Action (DME) blood sugar diagnostic [OneTouch Ultra Blue Test Strip] Strip See Rx Instructions .ROUTE .MEDSUPPLY Qty: 400 3RF Rx Instructions: Use one strip to test blood sugar four times daily (DME) FreeStyle Inga 14 Day Sensor Kit See Rx Instructions .ROUTE .MEDSUPPLY Qty: 1 0RF Rx Instructions: As directed (DME) FreeStyle Inga 14 Day [place] Misc See Rx Instructions .ROUTE .MEDSUPPLY Qty: 1 0RF Rx Instructions: As directed diclofenac sodium 1 % gel 1 g topical ONCE PRN (Reason: foot pain) Qty: 100 5RF Rx Instructions: Apply sparingly to feet and toes as needed (DME) pen needle, diabetic [BD Ultra-Fine Micro Pen Needle] 32 gauge x 1/4" needle See Rx Instructions .ROUTE .MEDSUPPLY Qty: 200 5RF Rx Instructions: USE TO INJECT INSULIN AND VICTOZA 4 X DAILY buspirone 5 mg tablet 5 mg PO BID PRN (Reason: anxiety) Qty: 60 1RF lisinopril 20 mg tablet 20 mg PO BID Qty: 180 3RF fluticasone propionate [Allergy Relief (fluticasone)] 50 mcg/actuation spray,suspension 1 spray INTNAS HS Qty: 47.4 1RF Rx Instructions: administer into each nostril pregabalin 75 mg capsule 75 mg PO BID Qty: 180 1RF albuterol sulfate 90 mcg/actuation aero powdr breath act w/sensor 2 inh INHALATION Q6H PRN (Reason: Shortness Of Breath) Qty: 1 3RF Mounjaro 5 mg/0.5 mL pen injector 5 mg subcut WK Qty: 2 2RF Rx Instructions: 12/15/24 : TAKE THIS MED EVERY FRIDAY. metformin 500 mg tablet extended release 24 hr 500 mg PO BIDM Qty: 180 3RF atorvastatin [Lipitor] 10 mg tablet 10 mg PO HS Qty: 90 1RF trazodone 50 mg tablet 50 mg PO HS PRN (Reason: Sleep) Qty: 30 5RF PreserVision AREDS [id number] cxjt-op-rekg capsule 1 cap PO HS fluticasone propion-salmeterol [Advair Diskus] 500-50 mcg/dose blister with device 1 inh inhalation BID Qty: 60 0RF metoprolol succinate 100 mg tablet extended release 24 hr 100 mg PO QAM Qty: 30 3RF ascorbic acid (vitamin C) [Vitamin C] 1,000 mg Tablet 500 mg PO QAM cholecalciferol (vitamin D3) [Vitamin D3] 1,000 unit Capsule 2,000 unit PO QAM Centrum Silver 0.4-300-250 mg-mcg-mcg Tablet 1 tab PO QAM omega 3-kfb-bdw-fish oil [Fish Oil] 1,000 mg (120 mg-180 mg) capsule 1 cap PO BID calcium polycarbophil [Fiber-Lax] 625 mg tablet 1,250 mg PO QAM cyanocobalamin (vitamin B-12) [Vitamin B-12] 1,000 mcg tablet 1,000 mcg PO QAM fexofenadine-pseudoephedrine [Lisa-D 24 Hour] 180-240 mg Tablet Extended Release 24 Hr 1 tab PO HS nystatin 100,000 unit/gram cream 1 applic topical BID PRN (Reason: Rash) omeprazole 20 mg capsule,delayed release(DR/EC) 20 mg PO HS insulin glargine [Lantus Solostar U-100 Insulin] 100 unit/mL (3 mL) insulin pen 20 unit subcut QAM Patient Comments: took 1/2 dose- 10 units this am. BSG check is 143 at 0910. duloxetine 60 mg capsule,delayed release(DR/EC) 60 mg PO HS diltiazem HCl 240 mg Capsule,Extended Release 24hr 240 mg PO QAM Qty: 30 0RF spironolactone 25 mg tablet 25 mg PO DAILY Qty: 30 0RF Eliquis 2.5 mg Tablet 2.5 mg PO BID Hair, Skin and Nails-Argan Oil 1 cap PO DAILY furosemide 40 mg tablet 40 mg PO QAM Brain Health 1 dose PO DAILY Referrals Referrals: Pro,Pete Kelley MD [Primary Care Provider] -
[2024-12-15 14:26] LABS: Hematocrit (blood only) 41.8 % (37.0-47.0); Hemoglobin 14.1 g/dl (12.0-16.0); Immature Granulocytes # (auto) 0.02 K/uL (0.01-0.20); Immature Granulocytes % (auto) 0.3 %; Mean Corpuscular Hemoglobin 30.3 pg (25.0-34.0); Mean Corpuscular Volume 89.7 fL (80.0-100.0); Platelet Count 324 K/uL (130-400); RDW Standard Deviation 45.9 fL (36.4-46.3); Red Blood Count 4.66 M/uL (4.20-5.40); White Blood Count 7.89 K/ul (4.8-10.8)
[2024-12-15] MEDS: SODIUM CHLORIDE 0.9% 500 ML IV ONE ×2 (14:47→17:53)
[2024-12-15 15:10] LABS: Anion Gap 10.0 (3-11); Bilirubin,Total 0.6 mg/dl (0.2-1.0); Calcium 10.8 mg/dl (8.6-10.3); Carbon Dioxide 24.0 mmol/L (21-32); Chloride 98.0 mmol/L (98-107); Magnesium 1.7 mg/dl (1.7-2.4); Potassium 4.6 mmol/L (3.5-5.1); Sodium 132.0 mmol/L (136-145)
--- NOTE | 2024-12-15 15:11 | XRay Report ---
XR chest 1V portable HISTORY: 73 years-old Female Dyspnea COMPARISON: 11/30/2024 TECHNIQUE: AP view of the chest FINDINGS: Cardiomediastinal and hilar silhouettes are within normal limits. No pneumothorax, pleural effusion, airspace consolidation or pulmonary edema. Spondylotic spurring of the spine. IMPRESSION: No acute process. ACT 112: Negative or not required by law. The above report was generated using voice recognition software. It may contain grammatical, syntax o r spelling errors. Electronically signed by: Yoni Chavez M.D. 12/15/2024 3:09 PM
[2024-12-15 15:16] LABS: Alanine Aminotransferase 11.0 U/L (7-52); Albumin Globulin Ratio 1.1 (0.9-2); Alkaline Phosphatase 108.0 U/L (34-104); Blood Urea Nitrogen 48.0 mg/dl (6-23); Creatinine Clr Calc Pharmacy 47.5 ml/min; Globulin 3.7 gm/dl (2.5-4.0); Glucose 249.0 mg/dl (70-99(Fasting)); Total Protein 7.9 gm/dl (6.0-8.3)
[2024-12-15 15:23] LABS: Chlamydia pneumoniae PCR Not Detected (NotDetected); Coronavirus 229E PCR Not Detected (NotDetected); Coronavirus CoV-2 (COVID19)PCR Not Detected (NotDetected); Coronavirus HKU1 PCR Not Detected (NotDetected); Coronavirus NL63 PCR Not Detected (NotDetected); Coronavirus OC43PCR Not Detected (NotDetected); Human Metapneumovirus PCR Not Detected (NotDetected); Parainfluenza Virus 1 PCR Not Detected (NotDetected); Parainfluenza Virus 2 PCR Not Detected (NotDetected); Parainfluenza Virus 3 PCR Not Detected (NotDetected); Parainfluenza Virus 4 PCR Not Detected (NotDetected); Respiratory Syncytial VirusPCR Not Detected (NotDetected); Rhinovirus/Enterovirus PCR Not Detected (NotDetected)
[2024-12-15 16:15] LABS: Appearance Urine Clear (Clear); Bacteria Urine Automated None Seen (None Seen); Cast Urine Automated 0-2 /lpf (0-2); Epithelial Cell Urine Auto 0-2 /hpf (0-2); Glucose Urine UA Negative (Negative); RBC Urine Automated 0-2 /hpf (0-2); WBC Urine Automated 0-5 /hpf (0-5)
[2024-12-15 16:15] LABS: INR 1.2 (0.9-1.1); Prothrombin Time 12.4 Seconds (9.0-12.0)
--- NOTE | 2024-12-15 16:20 | Electrocardiogram Report ---
Test Reason : Blood Pressure : */* mmHG Vent. Rate : 88 BPM Atrial Rate : * BPM P-R Int : * ms QRS Dur : 96 ms QT Int : 360 ms P-R-T Axes : * -3 88 degrees QTcB Int : 435 ms Atrial fibrillation Nonspecific T wave abnormality Abnormal ECG When compared with ECG of 02-Dec-2024 06:11, Minimal criteria for Inferior infarct are no longer Present Nonspecific T wave abnormality no longer evident in Inferior leads Nonspecific T wave abnormality now evident in Lateral leads Confirmed by Yuan Donovan ([id number]) on 12/15/2024 4:19:26 PM Referred By: Pete Hall Confirmed By: Yuan Donovan
--- NOTE | 2024-12-15 17:57 | CT Scan Report ---
Clinical History: Dizziness Technique: Axial computed tomography images were obtained of the brain without intravenous contrast. Comparison is made to the prior CT dated 07/18/2024 Findings: There is diffuse cerebral atrophy, within expected limits for the patient's age. Areas of decreased attenuation are seen within the periventricular white matter, likely representing chronic small vessel ischemic disease. There is no definite sign of acute or old infarction. No intracranial hemorrhage is evident. No definite mass lesion is seen on this noncontrast examination. There is no midline shift or other form of herniation. No hydrocephalus is seen. No fracture is identified. The orbits and the visualized paranasal sinuses appear unremarkable. The mastoid air cells appear clear. Impression: 1. Cerebral atrophy and chronic small vessel ischemic disease 2. Otherwise unremarkable noncontrast CT of the brain Electronically signed by Breezy Borden 12-15-2024 5:57 PM
[2024-12-15] MEDS ORDERED: LOPERAMIDE HCL 2 MG CAP PO PRN (19:13)
--- NOTE | 2024-12-15 19:38 | History & Physical Report ---
Date of Service December 15, 2024 Assessment & Plan (1) Acute hypotension: (2) Acute dehydration: (3) Chronic HFrEF (heart failure with reduced ejection fraction): (4) Atrial fibrillation: (5) Type 2 diabetes mellitus: (6) Diarrhea: Plan 73 y/o presented with hypotension/lightheadedness related to dehydration, diarrhea. Lasix dose recently reduced but may not need daily lasix any more. # Hypotension related to dehydration - feels better after NS IV 500 mL x 2 probably resolved. Hold lasix and change to PRN at discharge, hold spironolactone # Acute on chronic diarrhea - could be gastroenteritis. - stool biofire - PRN imodium - scheduled simethicone - has seen GI for chronic diarrhea, colonoscopy had been planned but presented in rapid afib so not done yet. Additional ddx includes diarrhea from lactose intolerance, medication (especially metformin, also could be PPI statin or fish oil). # HFrEF, atrial fibrillation - hold lisinopril for hypotension - continue metoprolol and hold diltiazem - consider stopping diltiazem since does not sound like rate control has been difficult - hold lasix and make PRN - has HF clinic follow up early next week. consider stopping spironolactone as well. - continue apixaban # Hypovolemic hyponatremia - slightly low - recheck BMP in AM # DM - continue glargine, hold metformin, premeal/prn aspart HH diet - advised bland/low fiber tonight Prefers full code I updated her daughter in the room History of Present Illness Chief Complaint: lightheadedness, weakness, diarrhea Primary Care Provider: Pete Hall MD 73 y/o with recent diagnosis afib and HFrEF who came in to ED with lightheadedness, weakness, few episodes of diarrhea. Has been doing well since recent discharge with resolution of dyspnea and edema. Seen in CHF clinic a few days ago and lasix dose reduced. Yesterday had grilled chicken, corn, home canned green beans. Severe episode of heartburn last night had to sit on EOB, came up into mouth. Had diarrhea with two loose stools and some nausea but no emesis. No stools today but has some abdominal distention and discomfort, gassiness. Did eat breakfast but nothing since. [place] lightheaded and weak today, lightheaded on standing with presyncopal symptoms and her daughter reports some associated confusion that resolved. No fever/chills, sick contacts, chest pain, dyspnea. Allergies Allergy/AdvReac Type Severity Reaction Status Date / Time Sulfa (Sulfonamide Allergy Severe Rash Verified 12/15/24 16:51 Antibiotics) sulfite Allergy Severe varies - Verified 12/15/24 16:51 migraines,diarrhea,throat swelling amoxicillin Allergy Unknown RASH NAUSEA Verified 12/15/24 16:51 doxycycline AdvReac Intermediate Vomiting Verified 12/15/24 16:51 Home Medications Medication Instructions Recorded Confirmed Type ascorbic acid (vitamin C) 1,000 mg 500 mg PO QAM 09/21/18 12/15/24 History tablet (Vitamin C) cholecalciferol (vitamin D3) 25 2,000 unit PO QAM 09/21/18 12/15/24 History mcg (1,000 unit) capsule (Vitamin D3) zymwzewu-rmg-lyles acid 0.4 1 tab PO QAM 09/21/18 12/15/24 History mg-lycopene 300 mcg-lutein 250 mcg tablet (Centrum Silver) omega 4-cch-lqd-fish oil 1,000 mg 1 cap PO BID 06/11/19 12/15/24 History (120 mg-180 mg) capsule (Fish Oil) trazodone 50 mg tablet 50 mg PO HS PRN Sleep #30 tabs 06/11/19 12/15/24 Rx blood sugar diagnostic (OneTouch #400 ea 09/27/19 12/10/24 Rx Ultra Blue Test Strip) fexofenadine-pseudoephedrine ER 1 tab PO HS 11/25/19 12/15/24 History 180 mg-240 mg tablet,ext.release 24 hr (Lisa-D 24 Hour) flash glucose scanning reader #1 ea 07/03/20 12/10/24 Rx (FreeStyle Inga 14 Day [place]) flash glucose sensor (FreeStyle #1 ea 07/03/20 12/10/24 Rx Inga 14 Day Sensor kit) vitamins A,C,L-sqog-tciimn 4,296 1 cap PO HS 09/18/21 12/15/24 History mcg-226 mg-90 mg capsule (PreserVision AREDS) diclofenac sodium 1 % topical gel 1 g topical ONCE PRN foot pain 02/19/22 12/15/24 Rx #100 grams pen needle, diabetic 32 gauge x #200 ea 05/27/22 12/10/24 Rx 1/4" (BD Ultra-Fine Micro Pen Needle) calcium polycarbophil 625 mg 1,250 mg PO QAM 12/04/22 12/15/24 History tablet (Fiber-Lax) cyanocobalamin (vitamin B-12) 1,000 mcg PO QAM 12/04/22 12/15/24 History 1,000 mcg tablet (Vitamin B-12) fluticasone 500 mcg-salmeterol 50 1 inh inhalation BID #60 ea 03/04/23 12/15/24 Rx mcg/dose blistr powdr for inhalation (Advair Diskus) buspirone 5 mg tablet 5 mg PO BID PRN anxiety #60 tabs 01/19/24 12/15/24 Rx lisinopril 20 mg tablet 20 mg PO BID #180 tabs 07/23/24 12/15/24 Rx fluticasone propionate 50 1 spray intranasal HS #47.4 mL 08/04/24 12/15/24 Rx mcg/actuation nasal spray,suspension (Allergy Relief (fluticasone)) pregabalin 75 mg capsule 75 mg PO BID #180 caps 10/13/24 12/15/24 Rx albuterol sulfate 90 mcg/actuation 2 inh inhalation Q6H PRN Shortness 10/20/24 12/15/24 Rx breath activated powder Of Breath #1 ea inhaler,sensor Mounjaro 5 mg/0.5 mL subcutaneous 5 mg (0.5 mL) subcut WK #2 mL 11/03/24 12/15/24 Rx pen injector (tirzepatide) metformin 500 mg tablet,extended 500 mg PO BIDM #180 tabs 11/08/24 12/15/24 Rx release 24 hr atorvastatin 10 mg tablet (Lipitor) 10 mg PO HS #90 tabs 11/19/24 12/15/24 Rx duloxetine 60 mg capsule,delayed 60 mg PO HS 11/23/24 12/15/24 History release insulin glargine 100 unit/mL (3 20 unit subcut QAM 11/23/24 12/15/24 History mL) subcutaneous pen (Lantus Solostar U-100 Insulin) nystatin 100,000 unit/gram topical 1 applic topical BID PRN Rash 11/23/24 12/15/24 History cream omeprazole 20 mg capsule,delayed 20 mg PO HS 11/23/24 12/15/24 History release diltiazem HCl 240 mg 240 mg PO QAM #30 caps 12/06/24 12/15/24 Rx capsule,extended release 24 hr spironolactone 25 mg tablet 25 mg PO DAILY #30 tabs 12/06/24 12/15/24 Rx metoprolol succinate 100 mg 100 mg PO QAM #30 tabs 12/10/24 12/15/24 Rx tablet,extended release 24 hr Brain Health 1 dose PO DAILY 12/15/24 12/15/24 History Hair, Skin and Nails-Argan Oil 1 cap PO DAILY 12/15/24 12/15/24 History apixaban 2.5 mg tablet (Eliquis) 2.5 mg PO BID 12/15/24 12/15/24 History furosemide 40 mg tablet 40 mg PO QAM 12/15/24 12/15/24 History Past Med/Surg History Problem List (Updated 12/15/24 @ 19:30 by Staci Fournier MD) Diarrhea Atrial fibrillation Chronic HFrEF (heart failure with reduced ejection fraction) Acute hypotension (Acute) Acute dehydration (Acute) Dizziness (Acute) Acute HFrEF (heart failure with reduced ejection fraction) Anticoagulant long-term use Cardiomyopathy Atrial fibrillation, new onset (Acute) Dysphagia Encounter for pre-operative examination Abnormal CT of the abdomen Back pain of thoracolumbar region Esophageal thickening T12 vertebral fracture (Acute ~07/18/24) Minimally displaced fractures of an anterior inferior T12 vertebral body osteophyte and anterior lateral right L1 superior vertebral body endplate. Compression fx, lumbar spine (Acute) Minimally displaced fractures of an anterior inferior T12 vertebral body osteophyte and anterior lateral right L1 superior vertebral body endplate. Nondisplaced fracture of fifth metatarsal bone (Acute ~11/20/22) Date of injury 11/20/22. Nondisplaced 4th and 5th left metatarsal fracture that are healing appropriately. 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 Lumbosacral radiculopathy Idiopathic polyneuropathy History of colon polyps Family history of colon cancer Encounter for pre-operative examination Type 2 diabetes mellitus (Acute) IDDM Obesity (Acute) Ganglion cyst (Acute) Extrinsic asthma (Acute) Essential hypertension (Acute) Dyslipidemia (Acute) Diabetic peripheral neuropathy (Acute) Depression with anxiety (Acute) Anxiety (Acute) Medical History Family hx of colon cancer Arthritis Hx of colonic polyp Snores no apnea testing T12 vertebral fracture (07/2024) Minimally displaced fractures of an anterior inferior T12 vertebral body osteophyte and anterior lateral right L1 superior vertebral body endplate. > pt is still mobile, just careful with lifting, minimal pain Type 2 diabetes mellitus Chronic sinusitis Endometriosis Depression Anxiety Migraine hx Hypertension Hyperlipidemia Asthma allergy induced > uses res inh few times per week Surgical History H/O excision of ganglion cyst right hand S/P ACL repair ACL/MCL/meniscus surgery RIGHT H/O bladder repair surgery bladder tack with mesh History of appendectomy possibly removed with hysterectomy History of colonoscopy History of excision of pilonidal cyst History of cataract surgery bilateral History of total abdominal hysterectomy MELY with BSO Hx of detached retina repair left Hx of cholecystectomy H/O lumpectomy bilateral (fibroid cysts) Family History Grandfather Heart disease Myocardial infarction Daughter Bipolar disorder Asthma Mother Colon cancer Skin cancer (melanoma) Breast cancer Grandmother Diabetes Heart disease Hypertension Father COPD (chronic obstructive pulmonary disease) Son No problems noted. 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 [employer] How many Children do You have: 2 How many Children do You have Comment: Daughter, son Feels Safe at Home: Yes Childhood Exposure to Second-Hand Smoke: Yes Diet: regular caffeine: Yes during the past year weight has: increased > 10 lbs Dental Care, Regularly: Yes Physical Activity Frequency: 3-4 Times per Week Seatbelt Use: always Sunscreen Use: Yes Do you think of yourself as: straight/heterosexual Gender Identity: Female Assistive Devices: Walker Review of Systems 2 Review of Systems: All systems reviewed & are unremarkable except as noted in HPI & below Physical Exam 2 Physical Exam: Last 24h vitals reviewed GEN: no acute distress, sitting in bed HEENT: pupils equal, sclerae anicteric, moist MM RESP: normal WOB, CTAB CV: reg no mrg ABD: soft, distended/tympanic, very active but normal sounding BT, NT : no marquez SKIN: warm and dry, no generalized rashes No LE edema NEURO: AOx person, place, and situation. Face symmetric, speech normal, moves 4 ext spontaneously and equally Results & Data Results & Data Vital Signs (Past 12 Hours) Vital Signs Temp Pulse Pulse Resp BP BP Pulse Ox 12/15/24 18:54 76 18 117/60 96 12/15/24 18:30 71 13 123/70 97 12/15/24 18:00 72 20 108/70 92 12/15/24 17:51 89 17 101/61 95 12/15/24 17:15 75 16 106/66 95 12/15/24 17:00 83 16 108/65 97 12/15/24 16:30 84 12 100/64 95 12/15/24 16:27 81 15 106/61 95 12/15/24 16:20 77 16 106/61 96 12/15/24 15:15 86 13 148/88 H 96 12/15/24 15:06 90 14 115/79 100 12/15/24 14:46 86 16 122/74 97 12/15/24 14:27 86 12/15/24 14:17 100 H 13 95 12/15/24 14:17 92 H 13 96/53 L 95 12/15/24 13:49 36.0 C L 68 20 80/50 L 94 O2 Del Method 12/15/24 18:54 12/15/24 18:30 12/15/24 18:00 12/15/24 17:51 12/15/24 17:15 12/15/24 17:00 12/15/24 16:30 12/15/24 16:27 Room Air 12/15/24 16:20 12/15/24 15:15 12/15/24 15:06 12/15/24 14:46 12/15/24 14:27 12/15/24 14:17 Room Air 12/15/24 14:17 Room Air 12/15/24 13:49 Room Air Laboratory Results 12/15/24 14:00 12/15/24 14:00 UA neg except 1+ LE Resp biofire neg INR 1.2 and on apixaban CXR - personally reviewed film and it is clear head CT - no acute findings EKG - personally reviewed tracing - afib with controlled rate Code Status & VTE Plan VTE Prophylaxis Plan VTE Prophylaxis will be ordered: Yes PG Care Time/CCT Total # of Minutes Spent Total Time Spent with Patient: Total time spent is greater than 50% in coordination of care (as documented) at patient's floor/unit and/or counseling patient: Coding Level of Care Code 89725 INT INP/OBS CARE 2/55MIN Diagnoses Acute hypotension I95.9 Acute dehydration E86.0 Chronic HFrEF (heart failure with reduced ejection fraction) I50.22 Atrial fibrillation I48.91 Type 2 diabetes mellitus E11.9 Diarrhea R19.7
[2024-12-15] MEDS ORDERED: MELATONIN 3 MG TAB PO PRN (19:39)
[2024-12-15] MEDS ORDERED: ALUMINUM/MAGNESIUM SUSP 30 ML UDC PO PRN (19:39)
[2024-12-15] MEDS ORDERED: ONDANSETRON INJ 2 MG/ML 2 ML VIAL IV PRN (19:39)
[2024-12-15] MEDS ORDERED: busPIRone 5 MG TAB PO PRN (19:39)
[2024-12-15] MEDS ORDERED: CARBOHYDRATES FOR HYPOGLYCEMIA PO PRN (19:41)
[2024-12-15] MEDS ORDERED: GLUCOSE 10 TAB/TUBE PO PRN (19:41)
[2024-12-15] MEDS ORDERED: DEXTROSE 50% 50 ML SYRINGE IV PRN (19:41)
[2024-12-15] MEDS ORDERED: GLUCAGON FOR INJ 1 MG VIAL SQ PRN (19:41)
[2024-12-15] MEDS ORDERED: GLUCOSE 40% GEL 15 GM TUBE PO PRN (19:41)
[2024-12-15] MEDS ORDERED: ALBUTEROL HFA 8 GM INHALER INH PRN (19:42)
[2024-12-15] MEDS ORDERED: FAMOTIDINE 40 MG/5 ML 50ML BTL PO SCH (21:00)
[2024-12-15] MEDS ORDERED: APIXABAN 2.5 MG TAB PO SCH (21:00)
[2024-12-15] MEDS: FEXOFENADINE HCL 180 MG TAB PO SCH (21:54)
[2024-12-15] MEDS: ATORVASTATIN 10 MG TAB PO SCH (21:54)
[2024-12-15] MEDS: FAMOTIDINE 20 MG TAB PO SCH (21:54)
[2024-12-15] MEDS: SIMETHICONE 80 MG CHEW PO SCH (21:54)
[2024-12-15] MEDS: PREGABALIN 75 MG CAP PO SCH (21:54)
[2024-12-15] MEDS: APIXABAN 5 MG TABLET PO SCH (21:55)
[2024-12-15] MEDS: INSULIN ASPART PER UNIT CHARGE SC SCH (22:15)
[2024-12-16 07:33] LABS: Adenovirus F 40/41 PCR Not Detected (NotDetected); Campylobacter PCR Not Detected (NotDetected); Enteroaggregative E.coli(EAEC) Not Detected (NotDetected); Shiga-like Toxin E.coli (STEC) Not Detected (NotDetected); Vibrio species PCR Not Detected (NotDetected)
[2024-12-16 07:36] VITALS: BP 101/65; PULSE 84; RESP 18; TEMP 97.7; O2SAT 97
[2024-12-16] MEDS: LANTUS PER UNIT CHARGE SC SCH (08:39)
[2024-12-16] MEDS: FLUTICASONE/VILANTEROL 200/25MCG 14 PUFFS/INHALER INH SCH (08:40)
[2024-12-16] MEDS: CYANOCOBALAMIN (B-12) 500 MCG TABLET PO SCH (08:41)
[2024-12-16] MEDS: METOPROLOL SUCC 50MG EXT REL TAB PO SCH (08:41)
[2024-12-16] MEDS: ACETAMINOPHEN 325 MG TAB PO PRN (08:44)
[2024-12-16 08:55] LABS: Anion Gap 9.0 (3-11); Blood Urea Nitrogen 39.0 mg/dl (6-23); Calcium 10.1 mg/dl (8.6-10.3); Carbon Dioxide 23.0 mmol/L (21-32); Chloride 104.0 mmol/L (98-107); Creatinine Clr Calc Pharmacy 58.4 ml/min; Glucose 171.0 mg/dl (70-99(Fasting)); Potassium 4.1 mmol/L (3.5-5.1); Sodium 136.0 mmol/L (136-145)
--- NOTE | 2024-12-16 13:53 | Discharge Summary ---
Discharge Summary Date of Service December 16, 2024 Principal Dx & Hospital Course #1 = Principal Diagnosis (1) Acute hypotension: (2) Acute dehydration: (3) Chronic HFrEF (heart failure with reduced ejection fraction): (4) Atrial fibrillation: (5) Type 2 diabetes mellitus: (6) Diarrhea: Plan # Hypotension related to dehydration 73 y/o presented with hypotension/lightheadedness related to dehydration, diarrhea. patient felt much better after 1 L of IV fluids. No longer feeling lightheaded or dizzy. Medication changes as below #Acute on chronic diarrhea - stool BioFire was negative. States that she had 2 semiformed bowel movements after last admission and then return to diarrhea. Continue simethicone and Imodium. Has seen GI for chronic diarrhea, colonoscopy had been planned but presented in rapid afib so not done yet. Additional ddx includes diarrhea from lactose intolerance, medication (especially metformin, also could be PPI statin or fish oil). discussed with patient and she will plan to hold metformin for 1 week until she follows up with her PCP and monitor her diarrhea. #HFrEF, atrial fibrillation - will continue reduced dose lasix 20mg 3x/week, lisinopril held until PCP follow up. Encouraged to keep log of BPs. Continue metorpolol. Diltiazem discontinued. Continue sipronolactone for now. HF clinic follow up next week for further medication changes. Did not want to make too many changes at once. continue apixaban # Hypovolemic hyponatremia - slightly low on admission, this has resolved. # DM - continue glargine, premeal/prn aspart. metformin on hold until PCP follow up to see if diarrhea improves, pt reports having to take fiber supplements since she has started metformin years ago dispo: discharge to home today, HF clinic and GI f.u Admission HPI Per Admitting Provider 73 y/o with recent diagnosis afib and HFrEF who came in to ED with lightheadedness, weakness, few episodes of diarrhea. Has been doing well since recent discharge with resolution of dyspnea and edema. Seen in CHF clinic a few days ago and lasix dose reduced. Yesterday had grilled chicken, corn, home canned green beans. Severe episode of heartburn last night had to sit on EOB, came up into mouth. Had diarrhea with two loose stools and some nausea but no emesis. No stools today but has some abdominal distention and discomfort, gassiness. Did eat breakfast but nothing since. [place] lightheaded and weak today, lightheaded on standing with presyncopal symptoms and her daughter reports some associated confusion that resolved. No fever/chills, sick contacts, chest pain, dyspnea. Discharge Exam General: NAD, VS as above Resp: normal respiratory effort, lungs clear to auscultation CV: RRR, no murmur, Abd: normal bowel sounds, non tender, no hepatosplenomegaly Extremities: Moves all extremities, no edema Neuro: A&O x3, Skin: intact, no lesions noted Discharge Plan Discharge Items Patient Disposition: Home - Self-Care Reason For Visit: DEHYDRATION, DIARRHEA Discharge Diagnosis: Dehydration Condition on Discharge: Fair Activity: Resume your previous activity Weightbearing: Full weightbearing Non-emergency contact: Primary Care Provider Call non-emergency contact if: you have any medication questions, your pain is worsening and your temperature is above 101 Follow-up/Referrals: Jayesh Bennett DO [Physician] - 01/18/25 10:30 am (Appointment is with Archie Brownlee) Pete Hall MD [Primary Care Provider] - 12/23/24 10:30 am (Appointment is with Melinda Luther) Lynn Bullard PA-C [Physician [employer]] - 12/24/24 10:00 am (follow up within one week ) Diet: Carb Consistent or DM2 and Heart Healthy Addtl Attending Provider Instructions: Ms. Olmedo, You were hospitalized after lightheadedness and dizziness likely from dehydration and too much blood pressure medications. Dehydration likely worse from your chronic diarrhea and your new fluid restriction. We did stool studies, that showed no infection in your stools. To treat your diarrhea recommend the following: - take Imodium or other anti-diarrheal as needed - Hold the metformin for about 1 [address] you see Dr. Hall again to see if your stools improve. For the lightheadedness and low blood pressure we are changing some of your medications: Stop diltiazem Change lasix to 3 times a week Will hold lisinopril until seeing Dr. Hall's office to see if this needs to be restarted Please keep taking your blood pressure and measuring your weight daily and bring these records to your doctor's appointments. Continue to check your blood sugars and discuss your reigmen with your PCP. With your recent diet changes, you may not need as much insulin, but if you stop your metformin, more adjustments need to be made. Activity: You can do normal everyday activities as your body allows. Take rest breaks if you feel tired. Do not overexert. Stop activity if you have pain, shortness of breath or feel dizzy. Follow-up appointments: Make an appointment with your primary care physician within one week of discharge. A copy of this summary will be sent to them. Every time you see your primary care physician, or any other doctor, bring your medication list, and a list of questions. CONTACT YOUR PRIMARY CARE PROVIDER if you experience any of the following: Shortness of breath or difficulty breathing Fevers or chills Feeling tired with normal activity or experiencing dizziness or fainting Difficulty following your treatment plan, or difficulty taking medications CALL 911 OR GO TO THE EMERGENCY DEPARTMENT if you experience any of the following: Severe abdominal pain or nausea/vomiting Severe chest pain, or chest pain that radiates (moves) to your jaw or arm Sudden, severe shortness of breath or difficulty breathing Thank you for allowing us to participate in your care. Pending Studies at Discharge: No Stand-Alone Forms: My [facility] [place], Smoking Cessation Medications and DC Order Prescriptions: Continued (DME) blood sugar diagnostic [OneTouch Ultra Blue Test Strip] Strip See Rx Instructions .ROUTE .MEDSUPPLY Qty: 400 3RF Rx Instructions: Use one strip to test blood sugar four times daily (DME) FreeStyle Inga 14 Day Sensor Kit See Rx Instructions .ROUTE .MEDSUPPLY Qty: 1 0RF Rx Instructions: As directed (DME) FreeStyle Inga 14 Day [place] Misc See Rx Instructions .ROUTE .MEDSUPPLY Qty: 1 0RF Rx Instructions: As directed diclofenac sodium 1 % gel 1 g topical ONCE PRN (Reason: foot pain) Qty: 100 5RF Rx Instructions: Apply sparingly to feet and toes as needed (DME) pen needle, diabetic [BD Ultra-Fine Micro Pen Needle] 32 gauge x 1/4" needle See Rx Instructions .ROUTE .MEDSUPPLY Qty: 200 5RF Rx Instructions: USE TO INJECT INSULIN AND VICTOZA 4 X DAILY buspirone 5 mg tablet 5 mg PO BID PRN (Reason: anxiety) Qty: 60 1RF fluticasone propionate [Allergy Relief (fluticasone)] 50 mcg/actuation spray,suspension 1 spray INTNAS HS Qty: 47.4 1RF Rx Instructions: administer into each nostril pregabalin 75 mg capsule 75 mg PO BID Qty: 180 1RF albuterol sulfate 90 mcg/actuation aero powdr breath act w/sensor 2 inh INHALATION Q6H PRN (Reason: Shortness Of Breath) Qty: 1 3RF Mounjaro 5 mg/0.5 mL pen injector 5 mg subcut WK Qty: 2 2RF Rx Instructions: 12/15/24 : TAKE THIS MED EVERY FRIDAY. atorvastatin [Lipitor] 10 mg tablet 10 mg PO HS Qty: 90 1RF trazodone 50 mg tablet 50 mg PO HS PRN (Reason: Sleep) Qty: 30 5RF PreserVision AREDS [id number] bgxw-pc-ryll capsule 1 cap PO HS fluticasone propion-salmeterol [Advair Diskus] 500-50 mcg/dose blister with device 1 inh inhalation BID Qty: 60 0RF metoprolol succinate 100 mg tablet extended release 24 hr 100 mg PO QAM Qty: 30 3RF ascorbic acid (vitamin C) [Vitamin C] 1,000 mg Tablet 500 mg PO QAM cholecalciferol (vitamin D3) [Vitamin D3] 1,000 unit Capsule 2,000 unit PO QAM Centrum Silver 0.4-300-250 mg-mcg-mcg Tablet 1 tab PO QAM omega 2-yeg-jch-fish oil [Fish Oil] 1,000 mg (120 mg-180 mg) capsule 1 cap PO BID calcium polycarbophil [Fiber-Lax] 625 mg tablet 1,250 mg PO QAM cyanocobalamin (vitamin B-12) [Vitamin B-12] 1,000 mcg tablet 1,000 mcg PO QAM fexofenadine-pseudoephedrine [Lisa-D 24 Hour] 180-240 mg Tablet Extended Release 24 Hr 1 tab PO HS nystatin 100,000 unit/gram cream 1 applic topical BID PRN (Reason: Rash) omeprazole 20 mg capsule,delayed release(DR/EC) 20 mg PO HS insulin glargine [Lantus Solostar U-100 Insulin] 100 unit/mL (3 mL) insulin pen 20 unit subcut QAM Patient Comments: took 1/2 dose- 10 units this am. BSG check is 143 at 0910. duloxetine 60 mg capsule,delayed release(DR/EC) 60 mg PO HS spironolactone 25 mg tablet 25 mg PO DAILY Qty: 30 0RF Eliquis 2.5 mg Tablet 2.5 mg PO BID Hair, Skin and Nails-Argan Oil 1 cap PO DAILY Brain Health 1 dose PO DAILY Changed furosemide 40 mg tablet 20 mg PO 3XWK Qty: 0 0RF Held lisinopril 20 mg tablet 20 mg PO BID Qty: 180 3RF Hold Instructions: Provider's Order - until PCP follow up metformin 500 mg tablet extended release 24 hr 500 mg PO BIDM Qty: 180 3RF Hold Instructions: Provider's Order - hold until PCP follow up Discontinued diltiazem HCl 240 mg Capsule,Extended Release 24hr 240 mg PO QAM Qty: 30 0RF Discharge Orders: Discharge Order (Routine); Ordered 12/16/24 Ordered By: Brittany Diego/Other Patient Handouts: ED Diarrhea, Unknown Cause Admission Data Admit Date/Time: 12/15/24 19:21 Attending Provider: Staci Fournier Admit Provider: Staci Fournier Primary Care Provider: Pete Hall Other Providers: Staci Fournier Other Interventions: Discharge Summary Assessment (RN) Last Done: 12/16/24 11:48 Hospital Stay Data Consultations 12/15/24 17:19 ED Decision to Admit Stat Diagnostic Imagining Performed Chest X-Ray 12/15/24 14:06 XR chest 1V portable HISTORY: 73 years-old Female Dyspnea COMPARISON: 11/30/2024 TECHNIQUE: AP view of the chest FINDINGS: Cardiomediastinal and hilar silhouettes are within normal limits. No pneumothorax, pleural effusion, airspace consolidation or pulmonary edema. Spondylotic spurring of the spine. IMPRESSION: No acute process. ACT 112: Negative or not required by law. The above report was generated using voice recognition software. It may contain grammatical, syntax or spelling errors. Electronically signed by: Yoni Chavez M.D. 12/15/2024 3:[address] 12/15/24 16:49 Clinical History: Dizziness Technique: Axial computed tomography images were obtained of the brain without intravenous contrast. Comparison is made to the prior CT dated 07/18/2024 Findings: There is diffuse cerebral atrophy, within expected limits for the patient's age. Areas of decreased attenuation are seen within the periventricular white matter, likely representing chronic small vessel ischemic disease. There is no definite sign of acute or old infarction. No intracranial hemorrhage is evident. No definite mass lesion is seen on this noncontrast examination. There is no midline shift or other form of herniation. No hydrocephalus is seen. No fracture is identified. The orbits and the visualized paranasal sinuses appear unremarkable. The mastoid air cells appear clear. Impression: 1. Cerebral atrophy and chronic small vessel ischemic disease 2. Otherwise unremarkable noncontrast CT of the brain Electronically signed by Breezy Borden 12-15-2024 5:57 PM Pending Results Patient Have Any Pending Studies at Discharge: No Discharge Instructions Given to Patient (Per Discharging Provider) Ms. Olmedo, You were hospitalized after lightheadedness and dizziness likely from dehydration and too much blood pressure medications. Dehydration likely worse from your chronic diarrhea and your new fluid restriction. We did stool studies, that showed no infection in your stools. To treat your diarrhea recommend the following: - take Imodium or other anti-diarrheal as needed - Hold the metformin for about 1 week [address] you see Dr[address] Hall again to see if your stools improve. For the lightheadedness and low blood pressure we are changing some of your medications: Stop diltiazem Change lasix to 3 times a week Will hold lisinopril until seeing Dr. Hall's office to see if this needs to be restarted Please keep taking your blood pressure and measuring your weight daily and bring these records to your doctor's appointments. Continue to check your blood sugars and discuss your reigmen with your PCP. With your recent diet changes, you may not need as much insulin, but if you stop your metformin, more adjustments need to be made. Activity: You can do normal everyday activities as your body allows. Take rest breaks if you feel tired. Do not overexert. Stop activity if you have pain, shortness of breath or feel dizzy. Follow-up appointments: Make an appointment with your primary care physician within one week of discharge. A copy of this summary will be sent to them. Every time you see your primary care physician, or any other doctor, bring your medication list, and a list of questions. CONTACT YOUR PRIMARY CARE PROVIDER if you experience any of the following: Shortness of breath or difficulty breathing Fevers or chills Feeling tired with normal activity or experiencing dizziness or fainting Difficulty following your treatment plan, or difficulty taking medications CALL 911 OR GO TO THE EMERGENCY DEPARTMENT if you experience any of the following: Severe abdominal pain or nausea/vomiting Severe chest pain, or chest pain that radiates (moves) to your jaw or arm Sudden, severe shortness of breath or difficulty breathing Thank you for allowing us to participate in your care. Total Time Total Time Spent Total Time Spent (In Minutes): Time spent day of discharge 35 minutes including direct patient care, medication reconciliation, documentation, review of labs and images, and coordination of care. Coding Level of Care Code 19157 INP/OBS DISCH >30 MIN Diagnoses Acute hypotension I95.9 Acute dehydration E86.0 Chronic HFrEF (heart failure with reduced ejection fraction) I50.22 Atrial fibrillation I48.91 Type 2 diabetes mellitus E11.9 Diarrhea R19.7
== END 2024-12-16 12:37 | disposition home or self-care (01) ==
LOC: ED 13:14 → EDINP 13:14 → 3W 19:35

== ENCOUNTER 2025-01-07 13:30 | Observation (INO) ==
[2025-01-07 14:36] LABS: Hematocrit (blood only) 34.8 % (37.0-47.0); Hemoglobin 11.5 g/dl (12.0-16.0); Immature Granulocytes # (auto) 0.02 K/uL (0.01-0.20); Immature Granulocytes % (auto) 0.3 %; Mean Corpuscular Hemoglobin 29.5 pg (25.0-34.0); Mean Corpuscular Volume 89.2 fL (80.0-100.0); Platelet Count 202 K/uL (130-400); RDW Standard Deviation 46.7 fL (36.4-46.3); Red Blood Count 3.90 M/uL (4.20-5.40); White Blood Count 6.81 K/ul (4.8-10.8)
[2025-01-07 15:01] LABS: Alanine Aminotransferase 18.0 U/L (7-52); Albumin Globulin Ratio 1.2 (0.9-2); Albumin Level 3.6 gm/dl (3.4-5.0); Alkaline Phosphatase 91.0 U/L (34-104); Anion Gap 7.0 (3-11); Bilirubin,Total 0.7 mg/dl (0.2-1.0); Blood Urea Nitrogen 14.0 mg/dl (6-23); Calcium 9.3 mg/dl (8.6-10.3); Carbon Dioxide 26.0 mmol/L (21-32); Chloride 108.0 mmol/L (98-107); Creatinine Clr Calc Pharmacy 71.1 ml/min; Globulin 3.1 gm/dl (2.5-4.0); Glucose 147.0 mg/dl (70-99(Fasting)); Potassium 3.5 mmol/L (3.5-5.1); Sodium 141.0 mmol/L (136-145); Total Protein 6.7 gm/dl (6.0-8.3)
[2025-01-07 15:08] LABS: INR 1.3 (0.9-1.1); Partial Thromboplastin Time 31 Seconds (21-31); Prothrombin Time 13.6 Seconds (9.0-12.0)
--- NOTE | 2025-01-07 15:19 | XRay Report ---
XR chest 1V not portable CLINICAL HISTORY: Chest pain, nonspecific COMPARISON STUDY: 12/15/2024 FINDINGS: There is mild cardiomegaly with mild pulmonary vascular congestion. No consolidation or ple ural effusion. No pneumothorax. IMPRESSION: Mild CHF. ACT 112: Negative or not required by law. Electronically signed by: Juan Brown M.D. 01/07/2025 3:18 PM
--- NOTE | 2025-01-07 16:51 | Emergency Department Note ---
Impression & Plan SOB (shortness of breath), Atrial fibrillation, CHF (congestive heart failure), Elevated brain natriuretic peptide (BNP) level, Anticoagulated ED Provider Note NAME: ESTEFANIA JAY AGE: 74 SEX: F : 1950 ARRIVES VIA: Walk-In INFORMANT: [Patient] ED PROVIDER(S): [Lenny Galan MD] CHIEF COMPLAINT: Cardiac assessment HISTORY OF PRESENT ILLNESS: Patient is a 74-year-old female who presents to the ER with shortness of breath. The patient states that she has gained 5 pounds in 6 days. She does have a recent diagnosis of A-fib as well as CHF. She is on Eliquis and Lasix every other day. The patient states that she tried to contact cardiology but was unable to talk to the provider. She was referred to the ER by the nursing staff. The patient is concerned that she may be fluid overloaded. The patient states that her dyspnea was noted last night when she was trying to sleep. She had to sit up onto the edge of the bed which seemed to make things feel better. She did have some chest discomfort at that time with some left arm discomfort as well. She has not had cough or cold or congestion. No fever. She does complain of a diffuse mild headache as well as just being in general tired. PMHx/PSHx/Social Hx: See Below PHYSICAL EXAM: GENERAL: Patient is in no acute distress. HEENT: No acute trauma, normocephalic atraumatic, mucous membranes moist, no nasal congestion. NECK: No stridor, no adenopathy, no meningismus, trachea is midline. LUNGS: Few scattered crackles heard, no wheezing or respiratory distress HEART: Slightly irregular rhythm with a normal rate. Very subtle systolic murmur. ABDOMEN: Soft, nontender, no peritonitis. EXTREMITIES: No cyanosis, full range of motion of all the joints without pain or difficulty. No edema. NEUROLOGIC: Oriented x 3, no acute motor or sensory deficits, no focal weakness. SKIN: No jaundice, no diaphoresis. DIFFERENTIAL DIAGNOSIS: CHF or fluid overload, VA, anemia, electrolyte imbalance, among others. EMERGENCY DEPARTMENT PROCEDURES: MEDICAL DECISION MAKING: There is no leukocytosis. There is a very subtle anemia. There is a normal platelet count. INR is slightly elevated, likely from her Eliquis use. There is no renal failure or significant electrolyte abnormality. ECG shows atrial fibrillation without acute ischemia. Cardiac enzyme testing x 1 is not consistent with acute cardiac injury. No worrisome liver enzyme elevation. BNP was elevated consistent with CHF and fluid overload. Chest x-ray does show some mild CHF, no pneumonia. Urinalysis does not show findings of infection. On exam, the patient was comfortable as long as she was still on the stretcher. She was not hypoxic. The patient received IV Lasix 40 mg. She has diuresed. Patient does not feel safe with discharge home. She was quite short of breath last night trying to sleep. I discussed hospitalization with her and further diuresis, she did consent. Her family was in favor of hospitalization. I did speak with case management, the on-call hospitalist was consulted. It does appear that her dyspnea is secondary to fluid overload/CHF. Prior/Outside records/notes reviewed: None ECG per my interpretation: Indication was shortness of breath. The ECG shows atrial fibrillation with a rate of 70. There is diffuse nonspecific ST change. There is no acute ST elevation, no PVCs. There is a potential old septal infarct. QTc is 447 Continuous Cardiac Monitoring per my interpretation: An order was placed for continuous cardiac monitoring. The monitor shows a rate of 73 with atrial fibrillation. Imaging/x-ray results per my interpretation: Chest x-ray does show some very mild CHF. No pneumonia. Chronic Medical/Social conditions affecting care: Advanced age. Care/Management discussed with: Case management, the on-call hospitalist. Level of care consideration(s): After review of the information above and other included data: --I believe the patient requires escalation of care to admission DISPOSITION: Admission Past Med/Surg History Problem List (Updated 01/08/25 @ 10:56 by Lenny Galan MD) Anticoagulated (Acute) Elevated brain natriuretic peptide (BNP) level (Acute) CHF (congestive heart failure) (Acute) Atrial fibrillation (Acute) SOB (shortness of breath) (Acute) Atrial fibrillation Chronic HFrEF (heart failure with reduced ejection fraction) Anticoagulant long-term use Back pain of thoracolumbar region Esophageal thickening T12 vertebral fracture (Acute ~07/18/24) Minimally displaced fractures of an anterior inferior T12 vertebral body osteophyte and anterior lateral right L1 superior vertebral body endplate. Compression fx, lumbar spine (Acute) Minimally displaced fractures of an anterior inferior T12 vertebral body osteophyte and anterior lateral right L1 superior vertebral body endplate. Nondisplaced fracture of fifth metatarsal bone (Acute ~11/20/22) Date of injury 11/20/22. Nondisplaced 4th and 5th left metatarsal fracture that are healing appropriately. Tear of tendon of left lower extremity Arthritis of left foot Arthritis of lumbar spine Lumbosacral radiculopathy Idiopathic polyneuropathy History of colon polyps Family history of colon cancer Encounter for pre-operative examination Obesity (Acute) Ganglion cyst (Acute) Extrinsic asthma (Acute) Essential hypertension (Acute) Dyslipidemia (Acute) Diabetic peripheral neuropathy (Acute) History of dysphagia no issues since taking omeprazole Medical History CAD (coronary artery disease) Mild CAD(20% proximal RCA stenosis) per cardio records Cardiomyopathy Family history of reaction to anesthesia sister-"hard time waking up from anesthesia" Diabetic peripheral neuropathy Anticoagulant long-term use Chronic HFrEF (heart failure with reduced ejection fraction) EF 40-45% on 12/20/24 TTE Atrial fibrillation dx 11/30/24, currently on eliquis; f/u mn cardiology Diarrhea Arthritis Snores no apnea testing T12 vertebral fracture (07/2024) Minimally displaced fractures of an anterior inferior T12 vertebral body osteophyte and anterior lateral right L1 superior vertebral body endplate. > pt is still mobile, just careful with lifting, minimal pain Type 2 diabetes mellitus IDDM Chronic sinusitis Depression Anxiety Migraine hx Hypertension Hyperlipidemia Asthma allergy induced; daily inh Surgical History Hx of cardiac cath 12/02/24, no stents; f/u mn cardio H/O excision of ganglion cyst right hand S/P ACL repair ACL/MCL/meniscus surgery RIGHT H/O bladder repair surgery bladder tack with mesh History of appendectomy possibly removed with hysterectomy History of colonoscopy (2019) History of excision of pilonidal cyst History of cataract surgery bilateral History of total abdominal hysterectomy MELY with BSO Hx of detached retina repair left Hx of cholecystectomy H/O lumpectomy bilateral (fibroid cysts) Family History Grandfather Heart disease Myocardial infarction Daughter Bipolar disorder Asthma Mother Colon cancer Skin cancer (melanoma) Breast cancer Grandmother Diabetes Heart disease Hypertension Father COPD (chronic obstructive pulmonary disease) Son No problems noted. 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 [employer] How many Children do You have: 2 How many Children do You have Comment: Daughter, son Feels Safe at Home: Yes Childhood Exposure to Second-Hand Smoke: Yes Diet: regular caffeine: Yes during the past year weight has: increased > 10 lbs Dental Care, Regularly: Yes Physical Activity Frequency: 3-4 Times per Week Seatbelt Use: always Sunscreen Use: Yes Do you think of yourself as: straight/heterosexual Gender Identity: Female Assistive Devices: Denture - Upper and Glasses Allergies Allergies Allergy/AdvReac Type Severity Reaction Status Date / Time Sulfa (Sulfonamide Allergy Severe Rash Verified 01/06/25 09:25 Antibiotics) sulfite Allergy Severe varies - Verified 01/06/25 09:25 migraines,diarrhea,throat swelling amoxicillin Allergy Unknown RASH NAUSEA Verified 01/06/25 09:25 doxycycline AdvReac Intermediate Vomiting Verified 01/06/25 09:25 Home Meds Home Medications Medication Instructions Recorded Confirmed ascorbic acid (vitamin C) 1,000 mg 500 mg PO QAM 09/21/18 01/07/25 tablet (Vitamin C) cholecalciferol (vitamin D3) 25 1,000 unit PO BID 09/21/18 01/07/25 mcg (1,000 unit) capsule (Vitamin D3) crqefxjc-nqk-fyfyx acid 0.4 1 tab PO QAM 09/21/18 01/07/25 mg-lycopene 300 mcg-lutein 250 mcg tablet (Centrum Silver) omega 8-fqe-iar-fish oil 1,000 mg 1 cap PO BID 06/11/19 01/07/25 (120 mg-180 mg) capsule (Fish Oil) fexofenadine-pseudoephedrine ER 1 tab PO HS 11/25/19 01/07/25 180 mg-240 mg tablet,ext.release 24 hr (Lisa-D 24 Hour) vitamins A,C,A-vkuv-pvuubl 4,296 1 cap PO HS 09/18/21 01/07/25 mcg-226 mg-90 mg capsule (PreserVision AREDS) cyanocobalamin (vitamin B-12) 1,000 mcg PO QAM 12/04/22 01/07/25 1,000 mcg tablet (Vitamin B-12) duloxetine 60 mg capsule,delayed 60 mg PO HS 11/23/24 01/07/25 release nystatin 100,000 unit/gram topical 1 applic topical BID PRN Rash 11/23/24 01/07/25 cream omeprazole 20 mg capsule,delayed 20 mg PO HS 11/23/24 01/07/25 release Brain Health 1 dose PO DAILY 12/15/24 01/07/25 biotin 10,000 mcg chewable tablet 1 mcg PO BID 01/06/25 01/07/25 (Hair, Skin and Nails (biotin)) fluticasone furoate 200 1 inh inhalation UD 01/06/25 01/07/25 mcg-vilanterol 25 mcg/dose inhalation powder (Breo Ellipta) furosemide 40 mg tablet 20 mg PO Q2D 01/06/25 01/07/25 sour jimenez extract 1,000 mg 1,000 mg PO QAM 01/06/25 01/07/25 capsule (Tart Jimenez Extract) Previous Rx's Medication Instructions Recorded trazodone 50 mg tablet 50 mg PO HS PRN Sleep #30 tabs 06/11/19 blood sugar diagnostic (OneTouch #400 ea 09/27/19 Ultra Blue Test Strip) flash glucose scanning reader #1 ea 07/03/20 (FreeStyle Inga 14 Day [place]) flash glucose sensor (FreeStyle #1 ea 07/03/20 Inga 14 Day Sensor kit) diclofenac sodium 1 % topical gel 1 g topical ONCE PRN foot pain 02/19/22 #100 grams pen needle, diabetic 32 gauge x #200 ea 05/27/22 1/" (BD Ultra-Fine Micro Pen Needle) buspirone 5 mg tablet 5 mg PO BID PRN anxiety #60 tabs 01/19/24 lisinopril 20 mg tablet 20 mg PO BID #180 tabs 07/23/24 fluticasone propionate 50 1 spray intranasal HS #47.4 mL 08/04/24 mcg/actuation nasal spray,suspension (Allergy Relief (fluticasone)) pregabalin 75 mg capsule 75 mg PO BID #180 caps 10/13/24 Mounjaro 5 mg/0.5 mL subcutaneous 5 mg (0.5 mL) subcut WK #2 mL 11/03/24 pen injector (tirzepatide) metformin 500 mg tablet,extended 500 mg PO BIDM #180 tabs 11/08/24 release 24 hr atorvastatin 10 mg tablet (Lipitor) 10 mg PO HS #90 tabs 11/19/24 spironolactone 25 mg tablet 25 mg PO DAILY #30 tabs 12/06/24 insulin glargine 100 unit/mL (3 20 unit (0.2 mL) subcut QAM #15 mL 12/21/24 mL) subcutaneous pen (Lantus Solostar U-100 Insulin) apixaban 5 mg tablet (Eliquis) 5 mg PO Q12H #180 tabs 01/05/25 metoprolol succinate 100 mg 100 mg PO QAM #30 tabs 01/07/25 tablet,extended release 24 hr Results & Data (ED) Vital Signs Vital Signs - 24 hr 01/07/25 13:49 01/07/25 13:52 01/07/25 13:52 Temperature 36.7 C Temperature Source Skin Pulse Rate 72 Pulse Rate [Apical] Pulse Rate [Right Brachial] Pulse Rate from SpO2 Sensor Pulse Rhythm [Right Brachial] Pulse Strength [Right Brachial] Respiratory Rate 18 Respiratory Effort / Characteristics SOB on Exertion Respiratory Depth Normal Respiratory Pattern Blood Pressure 105/67 Blood Pressure [Right Arm] Blood Pressure Mean 79 Blood Pressure Mean [Right Arm] Blood Pressure Position [Right Arm] Pulse Oximetry 93 96 Oxygen Delivery Method Room Air Room Air Room Air Sepsis Recent Fever Within 48 Hours No Sepsis New/Unexplained Change in Mental Status No Sepsis Action Taken by Nursing No Action Required 01/07/25 15:30 01/07/25 16:31 01/07/25 17:42 Temperature Temperature Source Pulse Rate 73 72 Pulse Rate [Apical] Pulse Rate [Right Brachial] 78 Pulse Rate from SpO2 Sensor 70 Pulse Rhythm [Right Brachial] Regular Pulse Strength [Right Brachial] Normal Respiratory Rate 19 19 Respiratory Effort / Characteristics Non-Labored Respiratory Depth Normal Respiratory Pattern Regular Blood Pressure 134/71 Blood Pressure [Right Arm] 134/71 Blood Pressure Mean 92 Blood Pressure Mean [Right Arm] 92 Blood Pressure Position [Right Arm] Sitting Pulse Oximetry 96 93 Oxygen Delivery Method Room Air Sepsis Recent Fever Within 48 Hours Sepsis New/Unexplained Change in Mental Status Sepsis Action Taken by Nursing 01/07/25 19:00 Temperature Temperature Source Pulse Rate Pulse Rate [Apical] 74 Pulse Rate [Right Brachial] Pulse Rate from SpO2 Sensor Pulse Rhythm [Right Brachial] Pulse Strength [Right Brachial] Respiratory Rate 16 Respiratory Effort / Characteristics Non-Labored Spontaneous Respiratory Depth Normal Respiratory Pattern Regular Blood Pressure Blood Pressure [Right Arm] 129/83 Blood Pressure Mean Blood Pressure Mean [Right Arm] 98 Blood Pressure Position [Right Arm] Pulse Oximetry 95 Oxygen Delivery Method Room Air Sepsis Recent Fever Within 48 Hours Sepsis New/Unexplained Change in Mental Status Sepsis Action Taken by Alf Medications Current Medication List: was personally reviewed by me Laboratory Data Attestation: I reviewed the patient's lab results. 01/08/25 05:33 01/08/25 05:33 Lab Results 01/07/25 01/07/25 01/07/25 Range/Units 14:16 17:54 18:28 WBC 6.81 (4.8-10.8) K/ul RBC 3.90 L (4.20-5.40) M/uL Hgb 11.5 L (12.0-16.0) g/dl Hct 34.8 L (37.0-47.0) % MCV 89.2 (80.0-100.0) fL MCH 29.5 (25.0-34.0) pg MCHC 33.0 (32.0-36.0) g/dL RDW Std Deviation 46.7 H (36.4-46.3) fL RDW Coeff of Mic 14.6 H (11.5-14.5) % Plt Count 202 (130-400) K/uL MPV 9.1 L (9.4-12.4) fL Immature Gran % (Auto) 0.3 % Neut % (Auto) 61.9 % Lymph % (Auto) 26.4 % Desha % (Auto) 7.0 % Eos % (Auto) 4.1 % Baso % (Auto) 0.3 % Neut # (Auto) 4.21 (1.40-6.50) K/uL Lymph # (Auto) 1.80 (1.20-3.40) K/uL Desha # (Auto) 0.48 (0.11-0.59) K/uL Eos # (Auto) 0.28 (0.00-0.50) K/uL Baso # (Auto) 0.02 (0.00-0.20) K/uL Immature Gran # (Auto) 0.02 (0.01-0.20) K/uL PT 13.6 H (9.0-12.0) Seconds INR 1.3 H (0.9-1.1) APTT 31 (21-31) Seconds PTT Ratio 1.2 Sodium 141 (136-145) mmol/L Potassium 3.5 (3.5-5.1) mmol/L Chloride 108 H (98-107) mmol/L Carbon Dioxide 26 (21-32) mmol/L Anion Gap 7 (3-11) BUN 14 (6-23) mg/dl Creatinine 0.78 (0.6-1.2) mg/dl Est Cr Clr Drug Dosing 71.1 ml/min eGFR 78.67 BUN/Creatinine Ratio 17.9 (10-20) Glucose 147 H (70-99(Fasting)) mg/dl Calcium 9.3 (8.6-10.3) mg/dl Magnesium 1.8 (1.7-2.4) mg/dl Total Bilirubin 0.7 (0.2-1.0) mg/dl AST 19 (13-39) U/L ALT 18 (7-52) U/L Alkaline Phosphatase 91 (34-104) U/L Troponin I High Sens 4.2 (0-14) pg/ml B-Natriuretic Peptide 232 H (0-100) pg/ml Total Protein 6.7 (6.0-8.3) gm/dl Albumin 3.6 (3.4-5.0) gm/dl Globulin 3.1 (2.5-4.0) gm/dl Albumin/Globulin Ratio 1.2 (0.9-2) Urine Color Yellow Urine Appearance Clear (Clear) Urine pH 7.0 (4.5-7.5) Ur Specific Wana 1.006 (1.000-1.030) Urine Protein Negative (Negative) Urine Glucose (UA) Negative (Negative) Urine Ketones Negative (Negative) Urine Blood Negative (Negative) Urine Nitrite Negative (Negative) Urine Bilirubin Negative (Negative) Urine Urobilinogen Negative (Negative) Ur Leukocyte Esterase Negative (Negative) Urine Comment Administered Medications Apixaban (Apixaban 2.5 Mg Tab) 2.5 mg PO BID [facility] Stop: 02/06/25 21:29 Last Admin: 01/08/25 08:50 Dose: 2.5 mg Documented By: Admin: 01/07/25 23:23 Dose: 2.5 mg Documented By: EFRAIN Ascorbic Acid (Ascorbic Acid 500 Mg Tab) [facility] Stop: 02/07/25 08:59 Last Admin: 01/08/25 08:49 Dose: 500 mg Documented By: KAEL Atorvastatin Calcium (Atorvastatin 10 Mg Tab) 10 mg PO [facility] Stop: 02/06/25 20:59 Last Admin: 01/07/25 23:25 Dose: 10 mg Documented By: EFRAIN Calcium Polycarbophil (Calcium Polycarbophil 625mg Tab) 625 mg PO BID [facility] Stop: 02/06/25 20:59 Last Admin: 01/08/25 08:49 Dose: 625 mg Documented By: Admin: 01/07/25 23:24 Dose: 625 mg Documented By: EFRAIN Cyanocobalamin (Cyanocobalamin (B-12) 500 Mcg Tablet) 1,000 mcg PO QAM [facility] Stop: 02/07/25 08:59 Last Admin: 01/08/25 08:49 Dose: 1,000 mcg Documented By: KAEL Duloxetine HCl (Duloxetine Hcl 60 Mg Cap) 60 mg PO [facility] Stop: 02/06/25 20:59 Last Admin: 01/07/25 23:28 Dose: 60 mg Documented By: EFRAIN Fluticasone Propionate (Fluticasone Propionate Na Spr 16 Gm Btl) 1 sprays JITENDRA [facility] Stop: 02/06/25 20:59 Last Admin: 01/07/25 23:27 Dose: 1 sprays Documented By: EFARIN Fluticasone/Vilanterol (Fluticasone/Vilanterol 200/25mcg 14 Puffs/Inhaler) 1 puffs INH DAILY [facility] Stop: 02/07/25 08:59 Last Admin: 01/08/25 08:51 Dose: 1 puffs Documented By: KAEL Furosemide (Furosemide 40 Mg/4 Ml Vial) 40 mg IV QAM [facility] Stop: 02/07/25 08:59 Last Admin: 01/08/25 09:26 Dose: 40 mg Documented By: KAEL Insulin Aspart (Insulin Aspart Per Unit Charge) 0 units SC ACHS [facility]JA Stop: 02/06/25 20:59 Last Admin: 01/08/25 08:53 Dose: 5 units Documented By: KAEL Co-signed By: KIKO Admin: 01/07/25 22:38 Dose: Not Given Documented By: EFRAIN Insulin Glargine (Lantus Per Unit Charge) 10 units SC QAM [facility] Stop: 02/07/25 08:59 Last Admin: 01/08/25 08:53 Dose: 10 units Documented By: KAEL Co-signed By: KIKO Metoprolol Succinate (Metoprolol Succ 50mg Ext Rel Tab) 100 mg PO QA [facility] Stop: 02/07/25 08:59 Last Admin: 01/08/25 08:49 Dose: 100 mg Documented By: KAEL Pantoprazole Sodium (Pantoprazole 40 Mg Tab) 40 mg PO HS [facility] Stop: 02/07/25 20:59 Last Admin: 01/07/25 23:23 Dose: 40 mg Documented By: EFRAIN Pregabalin (Pregabalin 75 Mg Cap) 75 mg PO BID [facility] Stop: 02/06/25 20:59 Last Admin: 01/08/25 08:48 Dose: 75 mg Documented By: Admin: 01/07/25 23:42 Dose: 75 mg Documented By: EFRAIN Spironolactone (Spironolactone 25 Mg Tab) 25 mg PO DAILY [facility]JA Stop: 02/07/25 08:59 Last Admin: 01/08/25 08:49 Dose: 25 mg Documented By: KAEL Vitamin D (Cholecalciferol 25 Mcg (1000 Units) Tab) 25 mcg PO BID [facility] Stop: 02/06/25 20:59 Last Admin: 01/08/25 08:51 Dose: 25 mcg Documented By: Admin: 01/07/25 23:24 Dose: 25 mcg Documented By: EFRAIN Discontinued Medications Furosemide (Furosemide 40 Mg/4 Ml Vial) 40 mg IV ONE ONE Stop: 01/07/25 16:36 Last Admin: 01/07/25 17:00 Dose: 40 mg Documented By: ROME Magnesium Sulfate/Dextrose (Magnesium Sulfate / D5w) 1 gm in 100 mls @ 50 mls/hr IV ONE ONE Stop: 01/07/25 22:15 Last Infusion: 01/07/25 23:49 Dose: Infused Documented By: Admin: 01/07/25 20:25 Dose: 50 mls/hr Documented By: WERNER Potassium Chloride (Potassium Chloride Crtab 20 Meq Tabcr) 40 meq PO NOW STA Stop: 01/08/25 08:18 Last Admin: 01/08/25 08:48 Dose: 40 meq Documented By: KAEL Imaging Data Radiologist's Impression: Chest X-Ray 01/07/25 13:52 XR chest 1V not portable CLINICAL HISTORY: Chest pain, nonspecific COMPARISON STUDY: 12/15/2024 FINDINGS: There is mild cardiomegaly with mild pulmonary vascular congestion. No consolidation or pleural effusion. No pneumothorax. IMPRESSION: Mild CHF. ACT 112: Negative or not required by law. Electronically signed by: Juan Brown M.D. 01/07/2025 3:18 PM Discharge Plan Visit Data Chief Complaint: Cardiac Assessment Stated Complaint: AFIB, HAS CONGESTIVE HEART FAILURE ED Provider: Lenny Galan Discharge Problem: SOB (shortness of breath), Atrial fibrillation, CHF (congestive heart failure), Elevated brain natriuretic peptide (BNP) level, Anticoagulated Patient Disposition: Admitted As Inpatient Condition: Fair Discharge Instructions Interventions: ED Discharge Assessment Last Done: 01/07/25 20:57 Discharge Problem: Atrial fibrillation Qualifiers: Atrial fibrillation type: unspecified Qualified Code(s): I48.91 - Unspecified atrial fibrillation CHF (congestive heart failure) Qualifiers: Heart failure type: unspecified Heart failure chronicity: acute on chronic Q ualified Code(s): I50.9 - Heart failure, unspecified
[2025-01-07 16:56] LABS: Magnesium 1.8 mg/dl (1.7-2.4)
[2025-01-07] MEDS: FUROSEMIDE 40 MG/4 ML VIAL IV ONE (17:00)
[2025-01-07 18:39] LABS: Appearance Urine Clear (Clear); Glucose Urine UA Negative (Negative)
--- NOTE | 2025-01-07 20:16 | History & Physical Report ---
Date of Service January 07, 2025 Assessment & Plan (1) Atrial fibrillation: (2) Chronic HFrEF (heart failure with reduced ejection fraction): (3) Hypoxia: (4) Anticoagulant long-term use: Plan The patient is a 74-year-old female with recently diagnosed atrial fibrillation and chronic HFrEF, placed on apixaban, T12 vertebral fracture, lumbar compression fracture, obesity, extrinsic asthma, hypertension, dyslipidemia, diabetic peripheral neuropathy, and history of dysphagia. The patient presents to the emergency department with complaint of shortness of breath that developed last evening when she went to lay down to go to bed. She reported that she went to sit up in her recliner chair, was able to breathe better at that point. She has noticed some lower extremity edema as well. She called her doctor today, and they advised her to come to the emergency department for assessment. The emergency department workup included a chest x-ray which suggested mild CHF, was given furosemide 40 mg IV by the ED, and then referred for evaluation [facility]. Patient was mildly hypoxic, with pulse ox in the low 90s upon arrival. She denies any recent change in diet, while keeping himself in a low-sodium diet. She does however note that her glucose was in the upper 60s throughout a large part of the day yesterday as well, without any recent change in insulin dosage or physical activity. She reports that she is scheduled for cardioversion this January 13 HFrEF exacerbation with hypoxia/atrial fibrillation/hypertension- The patient will be admitted to telemetry for serial cardiac enzymes, serial EKG's, cardiac rhythm monitoring Most recent echocardiogram on 12/20/2024 with ejection fraction 40-45%, conduction abnormality, mild MR and mild TR Troponin normal at 4.2 Given furosemide 40 mg IV in ED, will continue every morning Hold lisinopril Continue metoprolol succinate, apixaban, spironolactone. Patient reports that she was scheduled for cardioversion this coming in 6 days. Consult cardiology Diabetes mellitus- She reports her glucose levels were in the upper 60s throughout the day yesterday, but most recent 1 today on her Dexcom is 146 Will reduce glargine from 20 to 10 units SQ every morning Hold metformin and Mounjaro Place on Accu-Cheks with NovoLog SSI Anxiety and depression- Continue duloxetine Hold as needed buspirone Asthma- Continue Breo elliptica Hold Advair GERD- Continue omeprazole/pantoprazole Hyperlipidemia- Continue atorvastatin History of Present Illness Chief Complaint: The patient presents to the emergency department with complaint of shortness of breath that developed last evening when she went to lay down to go to bed. She reported that she went to sit up in her recliner chair, was able to breathe better at that point. She has noticed some lower extremity edema as well. She called her doctor today, and they advised her to come to the emergency department for assessment. The emergency department workup included a chest x- ray which suggested mild CHF, was given furosemide 40 mg IV by the ED, and then referred for evaluation for admission to the [facility] service. Patient was mildly hypoxic, with pulse ox in the low 90s upon arrival. Primary Care Provider: Pete Hall MD The patient is a 74-year-old female with recently diagnosed atrial fibrillation and chronic HFrEF, placed on apixaban, T12 vertebral fracture, lumbar compression fracture, obesity, extrinsic asthma, hypertension, dyslipidemia, diabetic peripheral neuropathy, and history of dysphagia. The patient presents to the emergency department with complaint of shortness of breath that developed last evening when she went to lay down to go to bed. She reported that she went to sit up in her recliner chair, was able to breathe better at that point. She has noticed some lower extremity edema as well. She called her doctor today, and they advised her to come to the emergency department for assessment. The emergency department workup included a chest x-ray which suggested mild CHF, was given furosemide 40 mg IV by the ED, and then referred for evaluation for admission to the [facility] service. Patient was mildly hypoxic, with pulse ox in the low 90s upon arrival. She denies any recent change in diet, while keeping himself in a low-sodium diet. She does however note that her glucose was in the upper 60s throughout a large part of the day yesterday as well, without any recent change in insulin dosage or physical activity. Allergies Allergy/AdvReac Type Severity Reaction Status Date / Time Sulfa (Sulfonamide Allergy Severe Rash Verified 01/06/25 09:25 Antibiotics) sulfite Allergy Severe varies - Verified 01/06/25 09:25 migraines,diarrhea,throat swelling amoxicillin Allergy Unknown RASH NAUSEA Verified 01/06/25 09:25 doxycycline AdvReac Intermediate Vomiting Verified 01/06/25 09:25 Home Medications Medication Instructions Recorded Confirmed Type ascorbic acid (vitamin C) 1,000 mg 500 mg PO QAM 09/21/18 01/06/25 History tablet (Vitamin C) cholecalciferol (vitamin D3) 25 1,000 unit PO BID 09/21/18 01/06/25 History mcg (1,000 unit) capsule (Vitamin D3) capalyco-gkg-nmihc acid 0.4 1 tab PO QAM 09/21/18 01/06/25 History mg-lycopene 300 mcg-lutein 250 mcg tablet (Centrum Silver) omega 1-vei-kjo-fish oil 1,000 mg 2 cap PO BID 06/11/19 01/06/25 History (120 mg-180 mg) capsule (Fish Oil) trazodone 50 mg tablet 50 mg PO HS PRN Sleep #30 tabs 06/11/19 01/06/25 Rx blood sugar diagnostic (OneTouch #400 ea 09/27/19 12/31/24 Rx Ultra Blue Test Strip) fexofenadine-pseudoephedrine ER 1 tab PO HS 11/25/19 01/06/25 History 180 mg-240 mg tablet,ext.release 24 hr (Lisa-D 24 Hour) flash glucose scanning reader #1 ea 07/03/20 12/31/24 Rx (FreeStyle Inga 14 Day Hawi) flash glucose sensor (FreeStyle #1 ea 07/03/20 12/31/24 Rx Inga 14 Day Sensor kit) vitamins A,C,T-uvux-pkrajo 4,296 1 cap PO HS 09/18/21 01/06/25 History mcg-226 mg-90 mg capsule (PreserVision AREDS) diclofenac sodium 1 % topical gel 1 g topical ONCE PRN foot pain 02/19/22 01/06/25 Rx #100 grams pen needle, diabetic 32 gauge x #200 ea 05/27/22 12/31/24 Rx 1/4" (BD Ultra-Fine Micro Pen Needle) calcium polycarbophil 625 mg 625 mg PO BID 12/04/22 01/06/25 History tablet (Fiber-Lax) cyanocobalamin (vitamin B-12) 1,000 mcg PO QAM 12/04/22 01/06/25 History 1,000 mcg tablet (Vitamin B-12) buspirone 5 mg tablet 5 mg PO BID PRN anxiety #60 tabs 01/19/24 01/06/25 Rx lisinopril 20 mg tablet 20 mg PO BID #180 tabs 07/23/24 01/06/25 Rx fluticasone propionate 50 1 spray intranasal HS #47.4 mL 08/04/24 01/06/25 Rx mcg/actuation nasal spray,suspension (Allergy Relief (fluticasone)) pregabalin 75 mg capsule 75 mg PO BID #180 caps 10/13/24 01/06/25 Rx Mounjaro 5 mg/0.5 mL subcutaneous 5 mg (0.5 mL) subcut WK #2 mL 11/03/24 01/06/25 Rx pen injector (tirzepatide) metformin 500 mg tablet,extended 500 mg PO BIDM #180 tabs 11/08/24 01/06/25 Rx release 24 hr atorvastatin 10 mg tablet (Lipitor) 10 mg PO HS #90 tabs 11/19/24 01/06/25 Rx duloxetine 60 mg capsule,delayed 60 mg PO HS 11/23/24 01/06/25 History release nystatin 100,000 unit/gram topical 1 applic topical BID PRN Rash 11/23/24 0 01/06/25 History cream omeprazole 20 mg capsule,delayed 20 mg PO HS 11/23/24 01/06/25 History release spironolactone 25 mg tablet 25 mg PO DAILY #30 tabs 12/06/24 01/06/25 Rx Brain Health 1 dose PO DAILY 12/15/24 01/06/25 History insulin glargine 100 unit/mL (3 20 unit (0.2 mL) subcut QAM #15 mL 12/21/24 01/06/25 Rx mL) subcutaneous pen (Lantus Solostar U-100 Insulin) apixaban 5 mg tablet (Eliquis) 5 mg PO Q12H #180 tabs 01/05/25 01/06/25 Rx biotin 10,000 mcg chewable tablet 1 mcg PO BID 01/06/25 01/06/25 History (Hair, Skin and Nails (biotin)) fluticasone 500 mcg-salmeterol 50 1 inh inhalation UD 01/06/25 01/06/25 History mcg/dose blistr powdr for inhalation (Advair Diskus) fluticasone furoate 200 1 inh inhalation UD 01/06/25 01/06/25 History mcg-vilanterol 25 mcg/dose inhalation powder (Breo Ellipta) furosemide 40 mg tablet 20 mg PO Q2D 01/06/25 01/06/25 History sour jimenez extract 1,000 mg 1,000 mg PO QAM 01/06/25 01/06/25 History capsule (Tart Jimenez Extract) metoprolol succinate 100 mg 100 mg PO QAM #30 tabs 01/07/25 Rx tablet,extended release 24 hr Past Med/Surg History Problem List (Updated 01/06/25 @ 10:44 by Mya Zelaya PA-C) Atrial fibrillation Chronic HFrEF (heart failure with reduced ejection fraction) Anticoagulant long-term use Back pain of thoracolumbar region Esophageal thickening T12 vertebral fracture (Acute ~07/18/24) Minimally displaced fractures of an anterior inferior T12 vertebral body osteophyte and anterior lateral right L1 superior vertebral body endplate. Compression fx, lumbar spine (Acute) Minimally displaced fractures of an anterior inferior T12 vertebral body o steophyte and anterior lateral right L1 superior vertebral body endplate. Nondisplaced fracture of fifth metatarsal bone (Acute ~11/20/22) Date of injury 11/20/22. Nondisplaced 4th and 5th left metatarsal fracture that are healing appropriately. Tear of tendon of left lower extremity Arthritis of left foot Arthritis of lumbar spine Lumbosacral radiculopathy Idiopathic polyneuropathy History of colon polyps Family history of colon cancer Encounter for pre-operative examination Obesity (Acute) Ganglion cyst (Acute) Extrinsic asthma (Acute) Essential hypertension (Acute) Dyslipidemia (Acute) Diabetic peripheral neuropathy (Acute) History of dysphagia no issues since taking omeprazole Medical History (Updated 01/06/25 @ 10:44 by yMa Zelaya PA-C) CAD (coronary artery disease) Mild CAD(20% proximal RCA stenosis) per cardio records Cardiomyopathy Family history of reaction to anesthesia sister-"hard time waking up from anesthesia" Diabetic peripheral neuropathy Anticoagulant long-term use Chronic HFrEF (heart failure with reduced ejection fraction) EF 40-45% on 12/20/24 TTE Atrial fibrillation dx 11/30/24, currently on eliquis; f/u mn cardiology Diarrhea Arthritis Snores no apnea testing T12 vertebral fracture (07/2024) Minimally displaced fractures of an anterior inferior T12 vertebral body osteophyte and anterior lateral right L1 superior vertebral body endplate. > pt is still mobile, just careful with lifting, minimal pain Type 2 diabetes mellitus IDDM Chronic sinusitis Depression Anxiety Migraine hx Hypertension Hyperlipidemia Asthma allergy induced; daily inh Surgical History Hx of cardiac cath 12/02/24, no stents; f/u [facility] cardio H/O excision of ganglion cyst right hand S/P ACL repair ACL/MCL/meniscus surgery RIGHT H/O bladder repair surgery bladder tack with mesh History of appendectomy possibly removed with hysterectomy History of colonoscopy (2019) History of excision of pilonidal cyst History of cataract surgery bilateral History of total abdominal hysterectomy MELY with BSO Hx of detached retina repair left Hx of cholecystectomy H/O lumpectomy bilateral (fibroid cysts) Family History Grandfather Heart disease Myocardial infarction Daughter Bipolar disorder Asthma Mother Colon cancer Skin cancer (melanoma) Breast cancer Grandmother Diabetes Heart disease Hypertension Father COPD (chronic obstructive pulmonary disease) Son No problems noted. 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 [employer] How many Children do You have: 2 How many Children do You have Comment: Daughter, son Feels Safe at Home: Yes Childhood Exposure to Second-Hand Smoke: Yes Diet: regular caffeine: Yes during the past year weight has: increased > 10 lbs Dental Care, Regularly: Yes Physical Activity Frequency: 3-4 Times per Week Seatbelt Use: always Sunscreen Use: Yes Do you think of yourself as: straight/heterosexual Gender Identity: Female Assistive Devices: Cane, Denture - Upper, Glasses, Walker, Wheelchair and Other Review of Systems Review of Systems: The patient denies chest pain, palpitations, cough, sore throat, fevers, chills, sweats, nausea, vomiting, diarrhea , constipation, abdominal pain, pelvic pain, blood in urine or stool, dysuria, urinary frequency or urgency, lightheadedness, dizziness, headache, memory loss, loss of consciousness, rash, abnormal bruising or bleeding, imbalance, focal or generalized weakness, numbness or tingling in arms or legs, generalized arthralgias or myalgias, back or neck pain, or night sweats. The review of systems is otherwise negative other than for that already noted above, and at least 10 systems have been reviewed. Physical Exam Physical Exam: The patient is awake, alert and oriented 3, well developed and well nourished, normocephalic and atraumatic, lying in bed and in no acute distress. HEENT--PERRL, EOMI, mucous membranes and oropharynx normal Neck--supple. No JVD. No bruits. Thyroid normal, trachea midline, no adenopathy. Heart--normal S1 and S2. No murmurs, rubs or gallops. Lungs-- few crackles at the bases bilaterally. No respiratory distress, no accessory muscle use. Abdomen--normal bowel sounds and soft. Nontender. Nondistended, no hernias or masses, no organomegaly. Extremities--no cyanosis or clubbing. 1+ bilateral pretibial pitting edema. Dermatologic--normal skin turgor, normal color, no abnormal lymph nodes, no rash. Neurologic--cranial nerves II through XII grossly intact. Rheumatologic--normal range of motion. Psychiatric--normal affect. Results & Data Results & Data Vital Signs (Past 12 Hours) Vital Signs Temp Pulse Pulse Pulse Resp BP BP 01/07/25 19:00 74 16 129/83 01/07/25 17:42 72 19 134/71 01/07/25 16:31 73 01/07/25 15:30 78 19 134/71 01/07/25 13:52 01/07/25 13:52 01/07/25 13:49 36.7 C 72 18 105/67 Pulse Ox O2 Del Method 01/07/25 19:00 95 Room Air 01/07/25 17:42 93 01/07/25 16:31 01/07/25 15:30 96 Room Air 01/07/25 13:52 96 Room Air 01/07/25 13:52 Room Air 01/07/25 13:49 93 Room Air Laboratory Results Laboratory Results WBC 6.81 K/ul (4.8-10.8) 01/07/25 14:16 RBC 3.90 M/uL (4.20-5.40) L 01/07/25 14:16 Hgb 11.5 g/dl (12.0-16.0) L 01/07/25 14:16 Hct 34.8 % (37.0-47.0) L 01/07/25 14:16 MCV 89.2 fL (80.0-100.0) 01/07/25 14:16 MCH 29.5 pg (25.0-34.0) 01/07/25 14:16 MCHC 33.0 g/dL (32.0-36.0) 01/07/25 14:16 RDW Std Deviation 46.7 fL (36.4-46.3) H 01/07/25 14:16 RDW Coeff of Mic 14.6 % (11.5-14.5) H 01/07/25 14:16 Plt Count 202 K/uL (130-400) 01/07/25 14:16 MPV 9.1 fL (9.4-12.4) L 01/07/25 14:16 Immature Gran % (Auto) 0.3 % 01/07/25 14:16 Neut % (Auto) 61.9 % 01/07/25 14:16 Lymph % (Auto) 26.4 % 01/07/25 14:16 [place] % (Auto) 7.0 % 01/07/25 14:16 Eos % (Auto) 4.1 % 01/07/25 14:16 Baso % (Auto) 0.3 % 01/07/25 14:16 Neut # (Auto) 4.21 K/uL (1.40-6.50) 01/07/25 14:16 Lymph # (Auto) 1.80 K/uL (1.20-3.40) 01/07/25 14:16 [place] # (Auto) 0.48 K/uL (0.11-0.59) 01/07/25 14:16 Eos # (Auto) 0.28 K/uL (0.00-0.50) 01/07/25 14:16 Baso # (Auto) 0.02 K/uL (0.00-0.20) 01/07/25 14:16 Immature Gran # (Auto) 0.02 K/uL (0.01-0.20) 01/07/25 14:16 PT 13.6 Seconds (9.0-12.0) H 01/07/25 14:16 INR 1.3 (0.9-1.1) H 01/07/25 14:16 APTT 31 Seconds (21-31) 01/07/25 14:16 PTT Ratio 1.2 01/07/25 14:16 Sodium 141 mmol/L (136-145) 01/07/25 14:16 Potassium 3.5 mmol/L (3.5-5.1) 01/07/25 14:16 Chloride 108 mmol/L (98-107) H 01/07/25 14:16 Carbon Dioxide 26 mmol/L (21-32) 01/07/25 14:16 Anion Gap 7 (3-11) 01/07/25 14:16 BUN 14 mg/dl (6-23) 01/07/25 14:16 Creatinine 0.78 mg/dl (0.6-1.2) 01/07/25 14:16 Est Cr Clr Drug Dosing 71.1 ml/min 01/07/25 14:16 eGFR 78.67 01/07/25 14:16 BUN/Creatinine Ratio 17.9 (10-20) 01/07/25 14:16 Glucose 147 mg/dl (70-99(Fasting)) H 01/07/25 14:16 Calcium 9.3 mg/dl (8.6-10.3) 01/07/25 14:16 Magnesium 1.8 mg/dl (1.7-2.4) 01/07/25 14:16 Total Bilirubin 0.7 mg/dl (0.2-1.0) 01/07/25 14:16 AST 19 U/L (13-39) 01/07/25 14:16 ALT 18 U/L (7-52) 01/07/25 14:16 Alkaline Phosphatase 91 U/L (34-104) 01/07/25 14:16 Troponin I High Sens 4.2 pg/ml (0-14) 01/07/25 14:16 B-Natriuretic Peptide 232 pg/ml (0-100) H 01/07/25 17:54 Total Protein 6.7 gm/dl (6.0-8.3) 01/07/25 14:16 Albumin 3.6 gm/dl (3.4-5.0) 01/07/25 14:16 Globulin 3.1 gm/dl (2.5-4.0) 01/07/25 14:16 Albumin/Globulin Ratio 1.2 (0.9-2) 01/07/25 14:16 Urine Color Yellow 01/07/25 18:28 Urine Appearance Clear (Clear) 01/07/25 18:28 Urine pH 7.0 (4.5-7.5) 01/07/25 18:28 Ur Specific [place] 1.006 (1.000-1.030) 01/07/25 18:28 Urine Protein Negative (Negative) 01/07/25 18:28 Urine Glucose (UA) Negative (Negative) 01/07/25 18:28 Urine Ketones Negative (Negative) 01/07/25 18:28 Urine Blood Negative (Negative) 01/07/25 18:28 Urine Nitrite Negative (Negative) 01/07/25 18:28 Urine Bilirubin Negative (Negative) 01/07/25 18:28 Urine Urobilinogen Negative (Negative) 01/07/25 18:28 Ur Leukocyte Esterase Negative (Negative) 01/07/25 18:28 Urine Comment 01/07/25 18:28 Impressions Chest X-Ray 01/07/25 13:52 XR chest 1V not portable CLINICAL HISTORY: Chest pain, nonspecific COMPARISON STUDY: 12/15/2024 FINDINGS: There is mild cardiomegaly with mild pulmonary vascular congestion. No consolidation or pleural effusion. No pneumothorax. IMPRESSION: Mild CHF. ACT 112: Negative or not required by law. Electronically signed by: Juan Brown M.D. 01/07/2025 3:18 PM Patient Code Status & VTE Plan Code Status Full code VTE Prophylaxis Plan VTE Prophylaxis will be ordered: Yes PG Care Time/CCT Total # of Minutes Spent Total Time Spent with Patient: Total time spent is greater than 50% in coordination of care (as documented) at patient's floor/unit and/or counseling patient: Coding Level of Care Code 74261 INT INP/OBS CARE 3/75MIN Diagnoses Persistent atrial fibrillation I48.19 Atrial fibrillation type: persistent (not longstanding) Chronic HFrEF (heart failure with reduced ejection fraction) I50.22 Hypoxia R09.02 Anticoagulant long-term use Z79.01 (1) Atrial fibrillation Atrial fibrillation type: persistent (not longstanding) Qualified Code(s): I48.19 - Other persistent atrial fibrillation
[2025-01-07] MEDS: MAGNESIUM SULFATE / D5W 1 GM/100 ML BAG IV ONE (20:25)
[2025-01-07] MEDS ORDERED: GLUCOSE 10 TAB/TUBE PO PRN (20:57)
[2025-01-07] MEDS ORDERED: GLUCAGON FOR INJ 1 MG VIAL SQ PRN (20:57)
[2025-01-07] MEDS ORDERED: NITROGLYCERIN SL 0.4 MG/TAB TAB SL PRN (20:57)
[2025-01-07] MEDS ORDERED: GLUCOSE 40% GEL 15 GM TUBE PO PRN (20:57)
[2025-01-07] MEDS ORDERED: CARBOHYDRATES FOR HYPOGLYCEMIA PO PRN (20:57)
[2025-01-07] MEDS ORDERED: DEXTROSE 50% 50 ML SYRINGE IV PRN (20:57)
[2025-01-07] MEDS ORDERED: ACETAMINOPHEN 325 MG TAB PO PRN (20:57)
[2025-01-07] MEDS: INSULIN ASPART PER UNIT CHARGE SC SCH (22:38)
[2025-01-07] MEDS: APIXABAN 2.5 MG TAB PO SCH (23:23)
[2025-01-07] MEDS: CALCIUM POLYCARBOPHIL 625MG TAB PO SCH (23:24)
[2025-01-07] MEDS: CHOLECALCIFEROL 25 MCG (1000 UNITS) TAB PO SCH (23:24)
[2025-01-07] MEDS: ATORVASTATIN 10 MG TAB PO SCH (23:25)
[2025-01-07] MEDS: FLUTICASONE PROPIONATE NA SPR 16 GM BTL NAE SCH (23:27)
[2025-01-07] MEDS: PREGABALIN 75 MG CAP PO SCH (23:42)
[2025-01-08 05:58] LABS: Hematocrit (blood only) 33.6 % (37.0-47.0); Hemoglobin 11.3 g/dl (12.0-16.0); Immature Granulocytes # (auto) 0.01 K/uL (0.01-0.20); Immature Granulocytes % (auto) 0.1 %; Mean Corpuscular Hemoglobin 29.8 pg (25.0-34.0); Mean Corpuscular Volume 88.7 fL (80.0-100.0); Platelet Count 180 K/uL (130-400); RDW Standard Deviation 47.0 fL (36.4-46.3); Red Blood Count 3.79 M/uL (4.20-5.40); White Blood Count 6.94 K/ul (4.8-10.8)
[2025-01-08 06:19] LABS: Alanine Aminotransferase 15.0 U/L (7-52); Albumin Globulin Ratio 1.4 (0.9-2); Albumin Level 3.6 gm/dl (3.4-5.0); Alkaline Phosphatase 90.0 U/L (34-104); Anion Gap 6.0 (3-11); Bilirubin,Total 0.7 mg/dl (0.2-1.0); Blood Urea Nitrogen 17.0 mg/dl (6-23); Calcium 9.1 mg/dl (8.6-10.3); Carbon Dioxide 27.0 mmol/L (21-32); Chloride 107.0 mmol/L (98-107); Creatinine Clr Calc Pharmacy 70.8 ml/min; Globulin 2.6 gm/dl (2.5-4.0); Glucose 204.0 mg/dl (70-99(Fasting)); Magnesium 2.0 mg/dl (1.7-2.4); Potassium 3.2 mmol/L (3.5-5.1); Sodium 140.0 mmol/L (136-145); Total Protein 6.2 gm/dl (6.0-8.3)
[2025-01-08 07:16] LABS: Hemoglobin A1C 7.7 % (4.5-5.6)
[2025-01-08] MEDS: POTASSIUM CHLORIDE CRTAB 20 MEQ TABCR PO STA (08:48)
[2025-01-08] MEDS: ASCORBIC ACID 500 MG TAB PO SCH (08:49)
[2025-01-08] MEDS: METOPROLOL SUCC 50MG EXT REL TAB PO SCH (08:49)
[2025-01-08] MEDS: CYANOCOBALAMIN (B-12) 500 MCG TABLET PO SCH (08:49)
[2025-01-08] MEDS: SPIRONOLACTONE 25 MG TAB PO SCH (08:49)
[2025-01-08] MEDS: FLUTICASONE/VILANTEROL 200/25MCG 14 PUFFS/INHALER INH SCH (08:51)
[2025-01-08] MEDS: LANTUS PER UNIT CHARGE SC SCH (08:53)
[2025-01-08] MEDS: FUROSEMIDE 40 MG/4 ML VIAL IV SCH (09:26)
--- NOTE | 2025-01-08 10:06 | Hospitalist Progress Note ---
Date of Service January 08, 2025 Assessment & Plan (1) Atrial fibrillation: (2) Chronic HFrEF (heart failure with reduced ejection fraction): (3) Hypoxia: (4) Anticoagulant long-term use: Plan The patient is a 74-year-old female with recently diagnosed atrial fibrillation and chronic HFrEF, placed on apixaban, T12 vertebral fracture, lumbar compression fracture, obesity, extrinsic asthma, hypertension, dyslipidemia, diabetic peripheral neuropathy, and history of dysphagia. The patient presents to the emergency department with complaint of shortness of breath that developed last evening when she went to lay down to go to bed. She reported that she went to sit up in her recliner chair, was able to breathe better at that point. She has noticed some lower extremity edema as well. She called her doctor today, and they advised her to come to the emergency department for assessment. The emergency department workup included a chest x-ray which suggested mild CHF, was given furosemide 40 mg IV by the ED, and then referred for evaluation for admission to the [facility]. Patient was mildly hypoxic, with pulse ox in the low 90s upon arrival. She denies any recent change in diet, while keeping himself in a low-sodium diet. She does however note that her glucose was in the upper 60s throughout a large part of the day yesterday as well, without any recent change in insulin dosage or physical activity. She reports that she is scheduled for cardioversion this January 13 HFrEF exacerbation with hypoxia/atrial fibrillation/hypertension- Presents with worsening SOB probably worsened by Afib Most recent echocardiogram on 12/20/2024 with ejection fraction 40-45%, conduction abnormality, mild MR and mild TR Given furosemide 40 mg IV in ED, will continue every morning Hold lisinopril Continue metoprolol succinate, apixaban, spironolactone. Patient reports that she was scheduled for cardioversion this coming , hopefully, she can get it while here in the hospital Consult cardiology Diabetes mellitus- She reports her glucose levels were in the upper 60s throughout the day yesterday, but most recent 1 today on her Dexcom is 146 Will reduce glargine from 20 to 10 units SQ every morning Hold metformin and Mounjaro Place on Accu-Cheks with NovoLog SSI Anxiety and depression- Continue duloxetine Hold as needed buspirone Asthma- Continue Breo elliptica Hold Advair GERD- Continue omeprazole/pantoprazole Hyperlipidemia- Continue atorvastatin Admission and Anticipated Discharge Date Admission Date: January 07, 2025 Subjective patient seen and examined, sitting up in the chair Review of Systems Review of Systems: All systems reviewed are negative, apart from the ones contained in the history. Physical Exam Physical Exam: The patient is awake, alert and oriented 3, well developed and well nourished, normocephalic and atraumatic, lying in bed and in no acute distress. HEENT--PERRL, EOMI, mucous membranes and oropharynx mildly dry Neck--supple. No JVD. No bruits. Thyroid normal, trachea midline, no adenopathy. Heart--normal S1 and S2. No murmurs, rubs or gallops. Lungs--clear bilaterally, no respiratory distress, no accessory muscle use. Abdomen--normal bowel sounds and soft. Extremities--no cyanosis or clubbing. No edema. Dermatologic--normal skin turgor, normal color, no abnormal lymph nodes, no rash. Neurologic--cranial nerves II through XII grossly intact. Rheumatologic--normal range of motion. Psychiatric--normal affect. Results & Data Results & Data Vital Signs (Past 12 Hours) Vital Signs Temp Pulse Pulse Resp BP Pulse Ox O2 Del Method 01/08/25 08:08 97.9 F 91 H 21 161/82 H 90 Room Air 01/08/25 07:09 81 01/08/25 04:30 86 16 132/80 96 Room Air 01/08/25 00:36 89 01/08/25 00:07 Room Air 01/08/25 00:06 133/77 01/07/25 22:20 97.7 F 74 20 161/95 H 92 Room Air PG Care Time/CCT Total # of Minutes Spent Total Time Spent with Patient: Total time spent is greater than 50% in coordination of care (as documented) at patient's floor/unit and/or counseling patient: Coding Level of Care Code 06686 SUB INP/OBS CARE 2/35MIN Diagnoses Persistent atrial fibrillation I48.19 Atrial fibrillation type: persistent (not longstanding) Chronic HFrEF (heart failure with reduced ejection fraction) I50.22 Hypoxia R09.02 Anticoagulant long-term use Z79.01 Time Spent (min) 35 (1) Atrial fibrillation Atrial fibrillation type: persistent (not longstanding) Qualified Code(s): I48.19 - Other persistent atrial fibrillation
--- NOTE | 2025-01-08 11:42 | Cardiology Consultation ---
Date of Consultation January 08, 2025 Assessment & Plan (1) Heart failure with mildly reduced ejection fraction: (2) Atrial fibrillation: (3) Anticoagulant long-term use: (4) Cardiomyopathy: Plan ASSESSMENT/PLAN: 1. Acute on chronic heart failure with mildly reduced EF: EF had reportedly improved with improved rate control. She does not appear to be significantly hypervolemic now after initial IV diuresis. Can likely resume oral Lasix soon and would recommend Lasix 20 mg p.o. daily on discharge. Also recommend starting low-dose Entresto. She had been on OSCAR inhibitor (40 mg total) in the past but it was stopped after presenting with hypotension in the setting of hypovolemia from diarrhea according to records. Continue metoprolol succinate and spironolactone. Would also recommend adding SGLT2 inhibitor but given concerns for hypotension and other records, this can be done in the outpatient setting. Low-sodium diet, less than 2000 mg daily. Strict I's and O's while hospitalized. Daily weights. Heart failure program. 2. Atrial fibrillation: Persistent. Does not seem to be symptomatic but it may be contributing to her heart failure. She is scheduled for transesophageal echo and cardioversion next week. Continue anticoagulation for stroke risk reduction however the therapeutic dose of Eliquis would be 5 mg twice daily. Increase Eliquis dose. Monitor CBC and renal function. 3. Cardiomyopathy: Nonischemic. [place] to be likely tachycardia induced. Medical therapy as above. Optimize GDMT. Follows in heart failure program. 4. Anticoagulation: Recommend therapeutic dosing of Eliquis as above. Monitor CBC and renal function. 5. Disposition: She seems to be back to her baseline with NYHA class II/III symptoms. She does not wish to be discharged until tomorrow. Close follow-up in the heart failure program and can keep outpatient appointment for transesophageal echo and cardioversion as scheduled. Cardioversion will not be pursued at this time as anesthesiology recommended intubation given proximity of her last dose of Mounjaro. Patient care and recommendations communicated with primary hospitalist, Dr. Hinds. Thank you for allowing me to participate in the care of your patient. Please call for any other questions or concerns. Sincerely, Marek Arreola M.D. History of Present Illness Reason for Consultation: "A-fib, CHF, scheduled for CV on " Requesting Physician: Dr. Glaser Attending Physician: Shelly Hinds MD History of Present Illness Ms. Olmedo is a very pleasant 74-year-old female with persistent atrial fibrillation, heart failure with reduced EF, type 2 diabetes, hypertension and dyslipidemia. She has been seen by Dr. Payne and also in the heart failure program. She had been scheduled to undergo DC cardioversion yesterday but given that she had taken Mounjaro earlier in the week, anesthesia recommended intubation to protect her airway and therefore it was postponed until next week. She denies palpitations but noted that she had gained 5 pounds in the past 6 days. She recalls that she had been on Lasix 20 mg daily in the past but had developed dehydration in the setting of diarrhea and therefore, was reduced to non daily scheduling. She had been taking Lasix 20 mg every other day and in the past couple days increased to daily but her breathing worsened. She noted on the evening of 01/06/2025, that she had orthopnea and a tightness/numbness in her chest and down her left arm. It resolved while sitting upright and did not recur with ambulation in her home. She was diagnosed with heart failure exacerbation on presentation and was given intravenous diuretic. She has already improved. She states that she still has dyspnea on exertion while walking in her hospital room but is at her baseline. She had been taking reduced dose Eliquis until just a few days ago. She denies melena, hematochezia, hematuria, or other bleeding. She has not had any further chest discomfort. Spironolactone has been on hold. She states that her lisinopril and metformin are also on hold. Review of systems: As above. Family history: Positive for CAD. Social history: She denies tobacco or drug abuse. Occasional alcohol. . Lives at home with her daughter, son-in-law, and 2 grandchildren. She was unaccompanied. Allergies Allergy/AdvReac Type Severity Reaction Status Date / Time Sulfa (Sulfonamide Allergy Severe Rash Verified 01/06/25 09:25 Antibiotics) sulfite Allergy Severe varies - Verified 01/06/25 09:25 migraines,diarrhea,throat swelling amoxicillin Allergy Unknown RASH NAUSEA Verified 01/06/25 09:25 doxycycline AdvReac Intermediate Vomiting Verified 01/06/25 09:25 Home Medications Medication Instructions Recorded Confirmed Type ascorbic acid (vitamin C) 1,000 mg 500 mg PO QAM 09/21/18 01/07/25 History tablet (Vitamin C) cholecalciferol (vitamin D3) 25 1,000 unit PO BID 09/21/18 01/07/25 History mcg (1,000 unit) capsule (Vitamin D3) rypkkjqu-hvu-nryhf acid 0.4 1 tab PO QAM 09/21/18 01/07/25 History mg-lycopene 300 mcg-lutein 250 mcg tablet (Centrum Silver) omega 7-hgk-ggd-fish oil 1,000 mg 1 cap PO BID 06/11/19 01/07/25 History (120 mg-180 mg) capsule (Fish Oil) trazodone 50 mg tablet 50 mg PO HS PRN Sleep #30 tabs 06/11/19 01/07/25 Rx blood sugar diagnostic (OneTouch #400 ea 09/27/19 12/31/24 Rx Ultra Blue Test Strip) fexofenadine-pseudoephedrine ER 1 tab PO HS 11/25/19 01/07/25 History 180 mg-240 mg tablet,ext.release 24 hr (Lisa-D 24 Hour) flash glucose scanning reader #1 ea 07/03/20 12/31/24 Rx (FreeStyle Inga 14 Day [place]) flash glucose sensor (FreeStyle #1 ea 07/03/20 12/31/24 Rx Inga 14 Day Sensor kit) vitamins A,C,W-fmgh-qievgn 4,296 1 cap PO HS 09/18/21 01/07/25 History mcg-226 mg-90 mg capsule (PreserVision AREDS) diclofenac sodium 1 % topical gel 1 g topical ONCE PRN foot pain 02/19/22 01/07/25 Rx #100 grams pen needle, diabetic 32 gauge x #200 ea 05/27/22 12/31/24 Rx 1/4" (BD Ultra-Fine Micro Pen Needle) cyanocobalamin (vitamin B-12) 1,000 mcg PO QAM 12/04/22 01/07/25 History 1,000 mcg tablet (Vitamin B-12) buspirone 5 mg tablet 5 mg PO BID PRN anxiety #60 tabs 01/19/24 01/07/25 Rx lisinopril 20 mg tablet 20 mg PO BID #180 tabs 07/23/24 01/07/25 Rx fluticasone propionate 50 1 spray intranasal HS #47.4 mL 08/04/24 01/07/25 Rx mcg/actuation nasal spray,suspension (Allergy Relief (fluticasone)) pregabalin 75 mg capsule 75 mg PO BID #180 caps 10/13/24 01/07/25 Rx Mounjaro 5 mg/0.5 mL subcutaneous 5 mg (0.5 mL) subcut WK #2 mL 11/03/24 01/07/25 Rx pen injector (tirzepatide) metformin 500 mg tablet,extended 500 mg PO BIDM #180 tabs 11/08/24 01/07/25 Rx release 24 hr atorvastatin 10 mg tablet (Lipitor) 10 mg PO HS #90 tabs 11/19/24 01/07/25 Rx duloxetine 60 mg capsule,delayed 60 mg PO HS 11/23/24 01/07/25 History release nystatin 100,000 unit/gram topical 1 applic topical BID PRN Rash 11/23/24 01/07/25 History cream omeprazole 20 mg capsule,delayed 20 mg PO HS 11/23/24 01/07/25 History release spironolactone 25 mg tablet 25 mg PO DAILY #30 tabs 12/06/24 01/07/25 Rx Brain Health 1 dose PO DAILY 12/15/24 01/07/25 History insulin glargine 100 unit/mL (3 20 unit (0.2 mL) subcut QAM #15 mL 12/21/24 01/07/25 Rx mL) subcutaneous pen (Lantus Solostar U-100 Insulin) apixaban 5 mg tablet (Eliquis) 5 mg PO Q12H #180 tabs 01/05/25 01/07/25 Rx biotin 10,000 mcg chewable tablet 1 mcg PO BID 01/06/25 01/07/25 History (Hair, Skin and Nails (biotin)) fluticasone furoate 200 1 inh inhalation UD 01/06/25 01/07/25 History mcg-vilanterol 25 mcg/dose inhalation powder (Breo Ellipta) furosemide 40 mg tablet 20 mg PO Q2D 01/06/25 01/07/25 History sour jimenez extract 1,000 mg 1,000 mg PO QAM 01/06/25 01/07/25 History capsule (Tart Jimenez Extract) metoprolol succinate 100 mg 100 mg PO QAM #30 tabs 01/07/25 01/07/25 Rx tablet,extended release 24 hr Patient History Medical History CAD (coronary artery disease) Mild CAD(20% proximal RCA stenosis) per cardio records Cardiomyopathy Family history of reaction to anesthesia sister-"hard time waking up from anesthesia" Diabetic peripheral neuropathy Anticoagulant long-term use Chronic HFrEF (heart failure with reduced ejection fraction) EF 40-45% on 12/20/24 TTE Atrial fibrillation dx 11/30/24, currently on eliquis; f/u [facility] cardiology Diarrhea Arthritis Snores no apnea testing T12 vertebral fracture (07/2024) Minimally displaced fractures of an anterior inferior T12 vertebral body osteophyte and anterior lateral right L1 superior vertebral body endplate. > pt is still mobile, just careful with lifting, minimal pain Type 2 diabetes mellitus IDDM Chronic sinusitis Depression Anxiety Migraine hx Hypertension Hyperlipidemia Asthma allergy induced; daily inh Surgical History Hx of cardiac cath 12/02/24, no stents; f/u [facility] cardio H/O excision of ganglion cyst right hand S/P ACL repair ACL/MCL/meniscus surgery RIGHT H/O bladder repair surgery bladder tack with mesh History of appendectomy possibly removed with hysterectomy History of colonoscopy (2019) History of excision of pilonidal cyst History of cataract surgery bilateral History of total abdominal hysterectomy MELY with BSO Hx of detached retina repair left Hx of cholecystectomy H/O lumpectomy bilateral (fibroid cysts) Family History Grandfather Heart disease Myocardial infarction Daughter Bipolar disorder Asthma Mother Colon cancer Skin cancer (melanoma) Breast cancer Grandmother Diabetes Heart disease Hypertension Father COPD (chronic obstructive pulmonary disease) Son No problems noted. 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 [employer] How many Children do You have: 2 How many Children do You have Comment: Daughter, son Feels Safe at Home: Yes Childhood Exposure to Second-Hand Smoke: Yes Diet: regular caffeine: Yes during the past year weight has: increased > 10 lbs Dental Care, Regularly: Yes Physical Activity Frequency: 3-4 Times per Week Seatbelt Use: always Sunscreen Use: Yes Do you think of yourself as: straight/heterosexual Gender Identity: Female Assistive Devices: Denture - Upper and Glasses Results & Data Vital Signs (Past 12 Hours) Vital Signs Temp Pulse Pulse Resp BP Pulse Ox O2 Del Method 01/08/25 11:15 36.7 C 93 H 21 133/84 96 Room Air 01/08/25 08:08 36.6 C 91 H 21 161/82 H 90 Room Air 01/08/25 07:09 81 01/08/25 04:30 86 16 132/80 96 Room Air 01/08/25 00:36 89 01/08/25 00:07 Room Air 01/08/25 00:06 133/77 Intake & Output 01/06/25 01/07/25 01/08/25 01/09/25 06:59 06:59 06:59 06:59 Intake Total 160 / 160 Output Total 300 / 300 300 / 300 Balance -140 / -140 -300 / -300 Weight 208 lb 5.389 oz Laboratory Results Laboratory Results - last 24 hr 01/07/25 01/07/25 01/07/25 14:16 17:54 18:28 WBC 6.81 RBC 3.90 L Hgb 11.5 L Hct 34.8 L MCV 89.2 MCH 29.5 MCHC 33.0 RDW Std Deviation 46.7 H RDW Coeff of Mic 14.6 H Plt Count 202 MPV 9.1 L Immature Gran % (Auto) 0.3 Neut % (Auto) 61.9 Lymph % (Auto) 26.4 [place] % (Auto) 7.0 Eos % (Auto) 4.1 Baso % (Auto) 0.3 Neut # (Auto) 4.21 Lymph # (Auto) 1.80 [place] # (Auto) 0.48 Eos # (Auto) 0.28 Baso # (Auto) 0.02 Immature Gran # (Auto) 0.02 PT 13.6 H INR 1.3 H APTT 31 PTT Ratio 1.2 Sodium 141 Potassium 3.5 Chloride 108 H Carbon Dioxide 26 Anion Gap 7 BUN 14 Creatinine 0.78 Est Cr Clr Drug Dosing 71.1 eGFR 78.67 BUN/Creatinine Ratio 17.9 Glucose 147 H POC Glucose Estimat Average Glucose Hemoglobin A1c Calcium 9.3 Magnesium 1.8 Total Bilirubin 0.7 AST 19 ALT 18 Alkaline Phosphatase 91 Troponin I High Sens 4.2 B-Natriuretic Peptide 232 H Total Protein 6.7 Albumin 3.6 Globulin 3.1 Albumin/Globulin Ratio 1.2 Urine Color Yellow Urine Appearance Clear Urine pH 7.0 Ur Specific Berkley 1.006 Urine Protein Negative Urine Glucose (UA) Negative Urine Ketones Negative Urine Blood Negative Urine Nitrite Negative Urine Bilirubin Negative Urine Urobilinogen Negative Ur Leukocyte Esterase Negative Urine Comment 01/07/25 01/08/25 01/08/25 22:37 05:33 08:04 WBC 6.94 RBC 3.79 L Hgb 11.3 L Hct 33.6 L MCV 88.7 MCH 29.8 MCHC 33.6 RDW Std Deviation 47.0 H RDW Coeff of Mic 14.6 H Plt Count 180 MPV 8.8 L Immature Gran % (Auto) 0.1 Neut % (Auto) 64.4 Lymph % (Auto) 22.8 [place] % (Auto) 7.5 Eos % (Auto) 4.8 Baso % (Auto) 0.4 Neut # (Auto) 4.47 Lymph # (Auto) 1.58 [place] # (Auto) 0.52 Eos # (Auto) 0.33 Baso # (Auto) 0.03 Immature Gran # (Auto) 0.01 PT INR APTT PTT Ratio Sodium 140 Potassium 3.2 L Chloride 107 Carbon Dioxide 27 Anion Gap 6 BUN 17 Creatinine 0.71 Est Cr Clr Drug Dosing 70.8 eGFR 88.06 BUN/Creatinine Ratio 23.9 H Glucose 204 H POC Glucose 125 H 144 H Estimat Average Glucose 174 Hemoglobin A1c 7.7 H Calcium 9.1 Magnesium 2.0 Total Bilirubin 0.7 AST 17 ALT 15 Alkaline Phosphatase 90 Troponin I High Sens B-Natriuretic Peptide Total Protein 6.2 Albumin 3.6 Globulin 2.6 Albumin/Globulin Ratio 1.4 Urine Color Urine Appearance Urine pH Ur Specific [place] Urine Protein Urine Glucose (UA) Urine Ketones Urine Blood Urine Nitrite Urine Bilirubin Urine Urobilinogen Ur Leukocyte Esterase Urine Comment Diagnostic Findings Labs reviewed and notable for mildly elevated BNP, normal high-sensitivity troponin, mild hypokalemia, normal sodium level, normal renal function, elevated A1c, normal transaminase levels, mild anemia. Chest x-ray report reviewed from 01/07/2025: Mild pulmonary vascular congestion per radiology. History and physical report reviewed. ECG personally reviewed 01/07/2025: Atrial fibrillation 70 bpm. Nonspecific T wave abnormality. Poor R wave progression. Heart failure visit reviewed from 12/24/2024. Cath report reviewed from 12/05/2024: Minimal nonobstructive CAD. Echo 11/30/2024: LVEF 35-40%. Mild global hypokinesis. Mild MR. Echo 12/20/2024: Limited. LVEF 40 to 45%. Global hypokinesis. Telemetry personally reviewed: Rate controlled atrial fibrillation. Medications Administered Current Inpatient Medications Acetaminophen (Acetaminophen 325 Mg Tab) 650 mg PO Q4H PRN PRN Reason: Pain or Fever Stop: 02/06/25 20:56 Apixaban (Apixaban 2.5 Mg Tab) 2.5 mg PO BID DAJA Stop: 02/06/25 21:29 Last Admin: 01/08/25 08:50 Dose: 2.5 mg Ascorbic Acid (Ascorbic Acid 500 Mg Tab) 500 mg PO QAM DAJA Stop: 02/07/25 08:59 Last Admin: 01/08/25 08:49 Dose: 500 mg Atorvastatin Calcium (Atorvastatin 10 Mg Tab) 10 mg PO HS DAJA Stop: 02/06/25 20:59 Last Admin: 01/07/25 23:25 Dose: 10 mg Calcium Polycarbophil (Calcium Polycarbophil 625mg Tab) 625 mg PO BID DAJA Stop: 02/06/25 20:59 Last Admin: 01/08/25 08:49 Dose: 625 mg Cyanocobalamin (Cyanocobalamin (B-12) 500 Mcg Tablet) 1,000 mcg PO QAM DAJA Stop: 02/07/25 08:59 Last Admin: 01/08/25 08:49 Dose: 1,000 mcg Dextrose (Dextrose 50% 50 Ml Syringe) 25 - 50 ml IV UD PRN; Protocol PRN Reason: Hypoglycemia Protocol Stop: 02/06/25 20:56 Duloxetine HCl (Duloxetine Hcl 60 Mg Cap) 60 mg PO HS [facility] Stop: 02/06/25 20:59 Last Admin: 01/07/25 23:28 Dose: 60 mg Fluticasone Propionate (Fluticasone Propionate Na Spr 16 Gm Btl) 1 sprays JITENDRA HS [facility] Stop: 02/06/25 20:59 Last Admin: 01/07/25 23:27 Dose: 1 sprays Fluticasone/Vilanterol (Fluticasone/Vilanterol 200/25mcg 14 Puffs/Inhaler) 1 puffs INH DAILY [facility] Stop: 02/07/25 08:59 Last Admin: 01/08/25 08:51 Dose: 1 puffs Furosemide (Furosemide 40 Mg/4 Ml Vial) 40 mg IV QAM [facility] Stop: 02/07/25 08:59 Last Admin: 01/08/25 09:26 Dose: 40 mg Glucagon (Glucagon For Inj 1 Mg Vial) 1 mg SQ UD PRN; Protocol PRN Reason: Hypoglycemia Protocol Stop: 02/06/25 20:56 Glucose (Glucose 40% Gel 15 Gm Tube) 15 - 30 gm PO UD PRN; Protocol PRN Reason: Hypoglycemia Protocol Stop: 02/06/25 20:56 Glucose (Glucose 10 Tab/Tube) 4 - 8 tab PO UD PRN; Protocol PRN Reason: Hypoglycemia Protocol Stop: 02/06/25 20:56 Insulin Aspart (Insulin Aspart Per Unit Charge) 0 units SC ACHS [facility] Stop: 02/06/25 20:59 Last Admin: 01/08/25 08:53 Dose: 5 units Insulin Glargine (Lantus Per Unit Charge) 10 units SC QAM [facility] Stop: 02/07/25 08:59 Last Admin: 01/08/25 08:53 Dose: 10 units Metoprolol Succinate (Metoprolol Succ 50mg Ext Rel Tab) 100 mg PO QAM [facility] Stop: 02/07/25 08:59 Last Admin: 01/08/25 08:49 Dose: 100 mg Miscellaneous (Carbohydrates For Hypoglycemia ) 15 - 30 gm PO UD PRN PRN Reason: Hypoglycemia Protocol Stop: 02/06/25 20:56 Multivitamins/Minerals (Cerovite Adv Formula Tab) 1 tab PO [facility] Stop: 02/07/25 20:59 Nitroglycerin (Nitroglycerin Sl 0.4 Mg/Tab Tab) 0.4 mg SL Q5M PRN PRN Reason: Chest Pain Stop: 02/06/25 20:56 Pantoprazole Sodium (Pantoprazole 40 Mg Tab) 40 mg PO HS DAJA Stop: 02/07/25 20:59 Last Admin: 01/07/25 23:23 Dose: 40 mg Pregabalin (Pregabalin 75 Mg Cap) 75 mg PO BID DAJA Stop: 02/06/25 20:59 Last Admin: 01/08/25 08:48 Dose: 75 mg Spironolactone (Spironolactone 25 Mg Tab) 25 mg PO DAILY DAJA Stop: 02/07/25 08:59 Last Admin: 01/08/25 08:49 Dose: 25 mg Trazodone HCl (Trazodone Hcl 50 Mg Tab) 50 mg PO HS PRN PRN Reason: Sleep Stop: 02/06/25 20:56 Vitamin D (Cholecalciferol 25 Mcg (1000 Units) Tab) 25 mcg PO BID DAJA Stop: 02/06/25 20:59 Last Admin: 01/08/25 08:51 Dose: 25 mcg PG Care Time/CCT Total # of Minutes Spent Total Time Spent with Patient: Total time spent is greater than 50% in coordination of care (as documented) at patient's floor/unit and/or counseling patient: Coding Level of Care Code 53460 INT INP/OBS CARE 3/75MIN Diagnoses Heart failure with mildly reduced ejection fraction I50.20 Atrial fibrillation I48.91 Atrial fibrillation type: unspecified Anticoagulant long-term use Z79.01 Cardiomyopathy, unspecified type I42.9 Cardiomyopathy type: unspecified (2) Atrial fibrillation Atrial fibrillation type: unspecified Qualified Code(s): I48.91 - Unspecified atrial fibrillation (4) Cardiomyopathy Cardiomyopathy type: unspecified Qualified Code(s): I42.9 - Cardiomyopathy, unspecified
[2025-01-08] MEDS: CALCIUM CARBONATE 500 MG CHEWABLE TAB PO PRN (20:08)
[2025-01-08] MEDS: APIXABAN 5 MG TABLET PO SCH (20:14)
[2025-01-08] MEDS: VALSARTAN/SACUBITRIL 26/24MG TAB PO SCH (20:14)
[2025-01-08] MEDS: CEROVITE ADV FORMULA TAB PO SCH (20:15)
[2025-01-09 05:45] LABS: Hematocrit (blood only) 38.8 % (37.0-47.0); Hemoglobin 12.5 g/dl (12.0-16.0); Immature Granulocytes # (auto) 0.02 K/uL (0.01-0.20); Immature Granulocytes % (auto) 0.3 %; Mean Corpuscular Hemoglobin 29.1 pg (25.0-34.0); Mean Corpuscular Volume 90.4 fL (80.0-100.0); Platelet Count 181 K/uL (130-400); RDW Standard Deviation 48.6 fL (36.4-46.3); Red Blood Count 4.29 M/uL (4.20-5.40); White Blood Count 6.82 K/ul (4.8-10.8)
[2025-01-09 06:03] LABS: Alanine Aminotransferase 15.0 U/L (7-52); Albumin Globulin Ratio 1.1 (0.9-2); Albumin Level 3.6 gm/dl (3.4-5.0); Alkaline Phosphatase 104.0 U/L (34-104); Anion Gap 7.0 (3-11); Bilirubin,Total 0.9 mg/dl (0.2-1.0); Blood Urea Nitrogen 18.0 mg/dl (6-23); Calcium 9.9 mg/dl (8.6-10.3); Carbon Dioxide 28.0 mmol/L (21-32); Chloride 104.0 mmol/L (98-107); Creatinine Clr Calc Pharmacy 66.5 ml/min; Globulin 3.3 gm/dl (2.5-4.0); Glucose 186.0 mg/dl (70-99(Fasting)); Magnesium 1.9 mg/dl (1.7-2.4); Potassium 3.9 mmol/L (3.5-5.1); Sodium 139.0 mmol/L (136-145); Total Protein 6.9 gm/dl (6.0-8.3)
[2025-01-09 07:51] VITALS: BP 132/87; RESP 18; TEMP 97.9; O2SAT 94
[2025-01-09] MEDS: FUROSEMIDE 20 MG TAB PO SCH (09:35)
[2025-01-09 10:20] VITALS: PULSE 78
[2025-01-09] MEDS: INFLUENZA VACC TS2025-26(65y+)/PF (IIV3) 0.5mL Syr IM ONE (10:34)
--- NOTE | 2025-01-09 11:02 | Discharge Summary ---
Date of Service January 09, 2025 Admission HPI Per Admitting Provider The patient is a 74-year-old female with recently diagnosed atrial fibrillation and chronic HFrEF, placed on apixaban, T12 vertebral fracture, lumbar compression fracture, obesity, extrinsic asthma, hypertension, dyslipidemia, diabetic peripheral neuropathy, and history of dysphagia. The patient presents to the emergency department with complaint of shortness of breath that developed last evening when she went to lay down to go to bed. She reported that she went to sit up in her recliner chair, was able to breathe better at that point. She has noticed some lower extremity edema as well. She called her doctor today, and they advised her to come to the emergency department for assessment. The emergency department workup included a chest x-ray which suggested mild CHF, was given furosemide 40 mg IV by the ED, and then referred for evaluation for admission to the [facility]. Patient was mildly hypoxic, with pulse ox in the low 90s upon arrival. She denies any recent change in diet, while keeping himself in a low-sodium diet. She does however note that her glucose was in the upper 60s throughout a large part of the day yesterday as well, without any recent change in insulin dosage or physical activity. Admission Exam (Per Admitting) Constitutional The patient is awake, alert and oriented 3, well developed and well nourished, normocephalic and atraumatic, lying in bed and in no acute distress. HEENT--PERRL, EOMI, mucous membranes and oropharynx mildly dry Neck--supple. No JVD. No bruits. Thyroid normal, trachea midline, no adenopathy. Heart--normal S1 and S2. No murmurs, rubs or gallops. Lungs--clear bilaterally, no respiratory distress, no accessory muscle use. Abdomen--normal bowel sounds and soft. Extremities--no cyanosis or clubbing. No edema. Dermatologic--normal skin turgor, normal color, no abnormal lymph nodes, no rash. Neurologic--cranial nerves II through XII grossly intact. Rheumatologic--normal range of motion. Psychiatric--normal affect. Discharge Data Consultations 01/07/25 19:09 ED Decision to Admit Stat 01/07/25 20:57 Consult Cardiology Routine 01/08/25 15:59 [facility] [place] CHF Program Referral Routine Hospital Course (1) Atrial fibrillation: (2) Chronic HFrEF (heart failure with reduced ejection fraction): (3) Hypoxia: (4) Anticoagulant long-term use: Plan The patient is a 74-year-old female with recently diagnosed atrial fibrillation and chronic HFrEF, placed on apixaban, T12 vertebral fracture, lumbar compression fracture, obesity, extrinsic asthma, hypertension, dyslipidemia, di abetic peripheral neuropathy, and history of dysphagia. The patient presents to the emergency department with complaint of shortness of breath that developed last evening when she went to lay down to go to bed. She reported that she went to sit up in her recliner chair, was able to breathe better at that point. She has noticed some lower extremity edema as well. She called her doctor today, and they advised her to come to the emergency department for assessment. The emergency department workup included a chest x-ray which suggested mild CHF, was given furosemide 40 mg IV by the ED, and then referred for evaluation for admission to the [facility]. Patient was mildly hypoxic, with pulse ox in the low 90s upon arrival. She denies any recent change in diet, while keeping himself in a low-sodium diet. She does however note that her glucose was in the upper 60s throughout a large part of the day yesterday as well, without any recent change in insulin dosage or physical activity. She reports that she is scheduled for cardioversion this January 13 HFrEF exacerbation with hypoxia/atrial fibrillation/hypertension- Presents with worsening SOB probably worsened by Afib Most recent echocardiogram on 12/20/2024 with ejection fraction 40-45%, conduction abnormality, mild MR and mild TR Stop lisinopril, start Entresto Continue metoprolol succinate, apixaban, spironolactone. Change to PO lasix 20mg daily Patient reports that she was scheduled for cardioversion this coming , she was asked to keep the appointment Hold Geovanna Diabetes mellitus- She reports her glucose levels were in the upper 60s throughout the day yesterday, but most recent 1 today on her Dexcom is 146 Will reduce glargine from 20 to 10 units SQ every morning Hold metformin and Mounjaro Place on Accu-Cheks with NovoLog SSI Anxiety and depression- Continue duloxetine Hold as needed buspirone Asthma- Continue Breo elliptica Hold Advair GERD- Continue omeprazole/pantoprazole Hyperlipidemia- Continue atorvastatin Coding Level of Care Code 89964 INP/OBS DISCH >30 MIN Diagnoses Persistent atrial fibrillation I48.19 Atrial fibrillation type: persistent (not longstanding) Chronic HFrEF (heart failure with reduced ejection fraction) I50.22 Hypoxia R09.02 Anticoagulant long-term use Z79.01 Time Spent (min) 35
--- NOTE | 2025-01-09 21:23 | Electrocardiogram Report ---
Test Reason : Blood Pressure : */* mmHG Vent. Rate : 70 BPM Atrial Rate : * BPM P-R Int : * ms QRS Dur : 92 ms QT Int : 414 ms P-R-T Axes : * -7 16 degrees QTcB Int : 447 ms Atrial fibrillation Possible Anterior infarct , age undetermined Abnormal ECG When compared with ECG of 15-Dec-2024 14:41, Borderline criteria for Anterior infarct are now Present Nonspecific T wave abnormality now evident in Inferior leads Nonspecific T wave abnormality, worse in Anterior leads Confirmed by Sergei Arreola ([id number]) on 01/09/2025 9:22:38 PM Referred By: Confirmed By: Sergei Arreola
== END 2025-01-09 10:59 | disposition home or self-care (01) | DRG 291 ==
LOC: ED 13:30 → EDINP 19:59 → SUATTDRO 19:59 → INTOOBSV 19:59 → 4W 20:57